=== PATIENT | female | born 1945 | race Caucasian/White ===

== ENCOUNTER → 2016-08-02 | Outpatient (CLI) | payer MEDICARE, OTHER ==
--- NOTE | 2016-08-03 08:17 | USB ---
Reason for exam: clinical finding. History: Patient is postmenopausal and is nulliparous. Benign left mammotome panel of the left breast, December 14, 2004. Took estrogen beginning at age 30. Indicated problem(s): palpable abnormality in the right breast. Physical Findings: Nurse Summary: Right breast 10 o'clock 2 x 3 palpable, skin around darkened area (nurse cw). US Breast RT Right breast ultrasound includes all four quadrants, the retroareolar region and axilla. Finding demonstrates area of edematous tissue at 9 o'clock, red raised area, has mass affect at one level. These results were verbally communicated with the patient and result sheet given to the patient on 08/02/16. ASSESSMENT: Probably benign, BI-RAD 3 RECOMMENDATION: Ultrasound of the right breast in 3 months.
== END | disposition home or self-care (01) ==
LOC: RADUSWWP 13:54
PROVIDERS: ATTEND Family Medicine
DX: N63 Unspecified lump in breast (principal); R92.8 Other abnormal and inconclusive findings on diagnostic imaging of breast

== ENCOUNTER → 2016-11-03 | Outpatient (CLI) | payer MEDICARE, OTHER ==
--- NOTE | 2016-11-07 07:25 | USB ---
Reason for exam: clinical finding. History: Patient is postmenopausal and is nulliparous. Benign left mammotome panel of the left breast, December 14, 2004. Took estrogen beginning at age 30. Indicated problem(s): palpable abnormality in the right breast. Physical Findings: Nurse Summary: 1cm palpable lump in the right breast (nurse [place]). US Breast RT Right breast ultrasound includes all four quadrants, the retroareolar region and axilla. Finding demonstrates a 1.7 x 2.2 x 1.0cm hypoechoic, vascular lesion at 9 o'clock. Not enlarging, continue follow up in 3 months. These results were verbally communicated with the patient and result sheet given to the patient on 11/03/16. ASSESSMENT: Probably benign, BI-RAD 3 RECOMMENDATION: Ultrasound of the right breast in 3 months.
== END | disposition home or self-care (01) ==
LOC: RADUSWWP 14:04
PROVIDERS: ATTEND Family Medicine
DX: N63 Unspecified lump in breast (principal)

== ENCOUNTER → 2017-03-07 | Day surgery (SDC) | payer MEDICARE, OTHER ==
--- NOTE | 2017-03-07 14:56 | USB ---
EXAMINATION TYPE: US biopsy breast VAD RT, MG diagnostic mammo RT wo CAD DATE OF EXAM: 03/07/2017 CLINICAL HISTORY: R92.8 Abn mammo. Abnormal ultrasound. History of trauma injury to right breast. TECHNIQUE: Ultrasound guided core biopsy of right breast with core biopsy and follow-up two-view mammogram. COMPARISON: Right breast ultrasound February 14, 2017 and older studies. FINDINGS: The procedure of ultrasound guided core biopsy was explained to the patient. Benefits, alternatives, and risks were discussed. An informed consent was then obtained. The patient was placed in supine positioning for imaging and for the procedure. Preprocedure imaging redemonstrates heterogeneous lobulated hypoechoic area or lesion at 9:00 position zone a right breast ending 2 dermal surface. The overlying skin was prepped and draped in usual sterile fashion. Lidocaine was used as anesthetic into the skin. Lidocaine with epinephrine is used as anesthetic into the deeper tissue of the right breast. Under ultrasound guidance, a 12-gauge vacuum assisted biopsy gun device was used to obtain 2 core samples. Following this, a biopsy clip was left in lesion. The patient tolerated the procedure well without any immediate complication. The patient was kept in the radiology department for short stay after the procedure and then discharged home in stable condition. Postprocedure mammogram shows successful deployment of clip corresponding to mammogram abnormality. Persistent lesion is not evident or as well seen on traditional diagnostic digital two-view mammogram. IMPRESSION: Successful, uncomplicated ultrasound guided core biopsy of area of concern in the right breast, full pathology results to follow. Low to intermediate index of suspicion noted at time of procedure. There was firmness or hardness in lesion and cores show dark material favoring an atypical hematoma (on US) given patient's history of recent trauma. Pathology Results: Benign BREAST, RIGHT, CORE BIOPSY: FAT NECROSIS WITH FIBROSIS, CHRONIC INFLAMMATION, AND FOREIGN BODY REACTION TO NON-REFRACTILE MATERIAL. NEGATIVE FOR MALIGNANCY Recommendation Follow up mammogram and ultrasound of the right breast in 6 months. LILY
[2017-03-07 23:29] VITALS: BP 100/64; PULSE 59; RESP 16; TEMP 96.9; BMI 35.6
== END ==
LOC: RADUSWWP 13:27
PROVIDERS: ATTEND Surgery
DX: N64.1 Fat necrosis of breast (principal); N60.31 Fibrosclerosis of right breast; Z87.828 Personal history of other (healed) physical injury and trauma
CPT/HCPCS: 88305; 77065; 19083; A4648; J2001

== ENCOUNTER 2017-07-12 13:30 | Observation (INO) | payer MEDICARE, OTHER ==
--- NOTE | 2017-07-12 15:39 | ED ---
General Adult HPI - General Chief complaint: Syncope Stated complaint: Syncope Time Seen by Provider: 07/12/17 15:19 Source: patient, family, RN notes reviewed Mode of arrival: wheelchair Limitations: no limitations - History of Present Illness Initial comments: 71-year-old female presenting for evaluation of multiple falls and syncope. Patient has remote history of CVA. She states that over the past 3 days she has had 1 syncopal episode and has had 2 near syncopal episodes. She states she feels lightheaded prior to these episodes. No chest pain or dyspnea. No fever or chills. He does admit that she has not been eating as much lately. Denies any nausea or vomiting. Denies diarrhea. Denies fever or chills. Denies cough or fever. No palpitations. - Related Data Home Medications Medication Instructions Recorded Confirmed ALPRAZolam [Xanax] 0.5 mg PO TID PRN 11/25/13 07/12/17 ARIPiprazole [Abilify] 2 mg PO WE 11/25/13 07/12/17 Amitriptyline HCl [Elavil] 25 mg PO HS 11/25/13 07/12/17 Philipp Cit/Mag/D3/Zn/Farm Truck Driver/J Luis/Bor 1 tab PO DAILY 11/25/13 07/12/17 [Citracal-Vit D + Magnesium Tab] Clopidogrel [Plavix] 75 mg PO DAILY 11/25/13 07/12/17 Latanoprost Ophth [Xalatan 0.005%] 1 drops BOTH EYES HS 11/25/13 07/12/17 Levothyroxine Sodium [Synthroid] 50 mcg PO DAILY 11/25/13 07/12/17 Multivitamin/Iron/Folic Acid 1 tab PO DAILY 11/25/13 07/12/17 [Centrum Complete Multivit Tab] Timolol 0.5% Ophth Soln [Timoptic 1 drop BOTH EYES BID 11/25/13 07/12/17 0.5% Ophth Soln] Citalopram Hydrobromide [CeleXA] 40 mg PO DAILY 08/24/15 07/12/17 Aspirin 162 mg PO BID 07/12/17 07/12/17 Fluticasone Propionate [Flovent 2 puff INHALATION RT-DAILY 07/12/17 07/12/17 Hfa 110mcg] Lisinopril [Prinivil] 5 mg PO DAILY 07/12/17 07/12/17 Ubidecarenone [Co Q-10] 100 mg PO DAILY 07/12/17 07/12/17 Previous Rx's Medication Instructions Recorded Atorvastatin [Lipitor] 40 mg PO DAILY #30 tab 10/06/14 Allergies Allergy/AdvReac Type Severity Reaction Status Date / Time No Known Allergies Allergy Verified 07/12/17 16:01 Review of Systems ROS Statement: Those systems with pertinent positive or pertinent negative responses have been documented in the HPI. ROS Other: All systems not noted in ROS Statement are negative. Past Medical History Past Medical History: CVA/TIA, Hyperlipidemia, Rheumatoid Arthritis (RA), Thyroid Disorder Additional Past Medical History / Comment(s): depression, glaucoma, bronchitis, CVA 1997 and TIA 2011 History of Any Multi-Drug Resistant Organisms: None Reported Past Surgical History: Orthopedic Surgery Additional Past Surgical History / Comment(s): cyst removed left ovary, detached retina repair, artery in groin 99% blocked "cleaned out", sinus surgery 2001, bilat hip replacement 2005 and 2013, cataract surgery sarina., hx of sciatic nerve block Past Anesthesia/Blood Transfusion Reactions: No Reported Reaction Past Psychological History: Anxiety, Depression Smoking Status: Former smoker Past Alcohol Use History: Occasional Past Drug Use History: None Reported - Past Family History Brother(s) Family Medical History: Cancer Additional Family Medical History / Comment(s): pancreatic Sister(s) Family Medical History: Cancer, Myocardial Infarction ([place]) Additional Family Medical History / Comment(s): skin cancer and cervical cancer Father Family Medical History: Coronary Artery Disease (CAD) General Exam Limitations: no limitations General appearance: alert, in no apparent distress Head exam: Present: atraumatic, normocephalic Eye exam: Present: normal appearance, PERRL ENT exam: Present: mucous membranes dry Neck exam: Present: normal inspection. Absent: tenderness, meningismus Respiratory exam: Present: normal lung sounds bilaterally. Absent: respiratory distress, wheezes Cardiovascular Exam: Present: regular rate, normal rhythm GI/Abdominal exam: Present: soft. Absent: distended, tenderness, guarding Extremities exam: Present: normal inspection, normal capillary refill. Absent: pedal edema Neurological exam: Present: alert, oriented X3, CN II-XII intact. Absent: motor sensory deficit Psychiatric exam: Present: normal affect, normal mood Skin exam: Present: warm, dry, intact. Absent: cyanosis, diaphoretic Course Vital Signs 07/12/17 07/12/17 07/12/17 13:45 16:29 17:23 Temperature 98.0 F Pulse Rate 57 L 53 L Pulse Rate [ 61 Sitting Electronic Science Teacher] Pulse Rate [ 84 Standing Electronic Science Teacher ] Pulse Rate [ 60 Supine Electronic Science Teacher] Respiratory 20 18 Rate Blood Pressure 131/63 118/71 Blood Pressure 134/66 [Right Arm Sitting] Blood Pressure 111/62 [Right Arm Standing] Blood Pressure 135/53 [Right Arm Supine] O2 Sat by Pulse 100 98 Oximetry EKG Findings - EKG Comments: EKG Findings:: EKG, sinus bradycardia, rate of 55, HI interval 172, QRS duration 106, QTC 403, no ST segment elevation or depression Medical Decision Making - Medical Decision Making 71-year-old female presenting with syncope and light headedness. Patient did have head trauma, CT is obtained there is no acute intracranial hemorrhage, there is old subcortical infarct which is consistent with patient's history of CVA. Laboratory studies reveal normal white blood cell count, hemoglobin 13.2, electrolytes are normal troponin negative. EKG shows no arrhythmia or ischemia. Urinalysis negative Patient will be placed in observation, she will be maintained on telemetry, cardiology will be consulted. - Lab Data Result diagrams: 07/12/17 15:48 07/12/17 15:48 Lab Results 07/12/17 07/12/17 07/12/17 Range/Units 15:48 15:48 15:48 WBC 7.3 (3.8-10.6) k/uL RBC 4.42 (3.80-5.40) m/uL Hgb 13.2 (11.4-16.0) gm/dL Hct 39.3 (34.0-46.0) % MCV 88.7 (80.0-100.0) fL MCH 29.9 (25.0-35.0) pg MCHC 33.7 (31.0-37.0) g/dL RDW 13.3 (11.5-15.5) % Plt Count 237 (150-450) k/uL Neutrophils % 54 % Lymphocytes % 25 % Monocytes % 7 % Eosinophils % 9 % Basophils % 1 % Neutrophils # 3.9 (1.3-7.7) k/uL Lymphocytes # 1.8 (1.0-4.8) k/uL Monocytes # 0.5 (0-1.0) k/uL Eosinophils # 0.6 (0-0.7) k/uL Basophils # 0.1 (0-0.2) k/uL PT (9.0-12.0) sec INR (<1.2) APTT (22.0-30.0) sec Sodium 140 (137-145) mmol/L Potassium 4.8 (3.5-5.1) mmol/L Chloride 102 (98-107) mmol/L Carbon Dioxide 28 (22-30) mmol/L Anion Gap 10 mmol/L BUN 22 H (7-17) mg/dL Creatinine 0.94 (0.52-1.04) mg/dL Est GFR (CKD-EPI)AfAm 72 (>60 ml/min/1.73 sqM) Est GFR (CKD-EPI)NonAf 62 (>60 ml/min/1.73 sqM) Glucose 89 (74-99) mg/dL Calcium 9.9 (8.4-10.2) mg/dL Magnesium 2.2 (1.6-2.3) mg/dL Total Bilirubin 1.2 (0.2-1.3) mg/dL AST 27 (14-36) U/L ALT 20 (9-52) U/L Alkaline Phosphatase 125 (38-126) U/L Total Creatine Kinase 35 (30-135) U/L CK-MB (CK-2) 0.3 (0.0-2.4) ng/mL CK-MB (CK-2) Rel Index 0.9 Troponin I <0.012 (0.000-0.034) ng/mL Total Protein 7.1 (6.3-8.2) g/dL Albumin 4.1 (3.5-5.0) g/dL Urine Color Urine Appearance (Clear) Urine pH (5.0-8.0) Ur Specific [place] (1.001-1.035) Urine Protein (Negative) Urine Glucose (UA) (Negative) Urine Ketones (Negative) Urine Blood (Negative) Urine Nitrite (Negative) Urine Bilirubin (Negative) Urine Urobilinogen (<2.0) mg/dL Ur Leukocyte Esterase (Negative) 05/10/18 05/10/18 Range/Units 15:48 17:03 WBC (3.8-10.6) k/uL RBC (3.80-5.40) m/uL Hgb (11.4-16.0) gm/dL Hct (34.0-46.0) % MCV (80.0-100.0) fL MCH (25.0-35.0) pg MCHC (31.0-37.0) g/dL RDW (11.5-15.5) % Plt Count (150-450) k/uL Neutrophils % % Lymphocytes % % Monocytes % % Eosinophils % % Basophils % % Neutrophils # (1.3-7.7) k/uL Lymphocytes # (1.0-4.8) k/uL Monocytes # (0-1.0) k/uL Eosinophils # (0-0.7) k/uL Basophils # (0-0.2) k/uL PT 9.8 (9.0-12.0) sec INR 1.0 (<1.2) APTT 20.7 L (22.0-30.0) sec Sodium (137-145) mmol/L Potassium (3.5-5.1) mmol/L Chloride (98-107) mmol/L Carbon Dioxide (22-30) mmol/L Anion Gap mmol/L BUN (7-17) mg/dL Creatinine (0.52-1.04) mg/dL Est GFR (CKD-EPI)AfAm (>60 ml/min/1.73 sqM) Est GFR (CKD-EPI)NonAf (>60 ml/min/1.73 sqM) Glucose (74-99) mg/dL Calcium (8.4-10.2) mg/dL Magnesium (1.6-2.3) mg/dL Total Bilirubin (0.2-1.3) mg/dL AST (14-36) U/L ALT (9-52) U/L Alkaline Phosphatase (38-126) U/L Total Creatine Kinase (30-135) U/L CK-MB (CK-2) (0.0-2.4) ng/mL CK-MB (CK-2) Rel Index Troponin I (0.000-0.034) ng/mL Total Protein (6.3-8.2) g/dL Albumin (3.5-5.0) g/dL Urine Color Light Yellow Urine Appearance Clear (Clear) Urine pH 6.5 (5.0-8.0) Ur Specific [place] 1.007 (1.001-1.035) Urine Protein Negative (Negative) Urine Glucose (UA) Negative (Negative) Urine Ketones Negative (Negative) Urine Blood Negative (Negative) Urine Nitrite Negative (Negative) Urine Bilirubin Negative (Negative) Urine Urobilinogen <2.0 (<2.0) mg/dL Ur Leukocyte Esterase Negative (Negative) Disposition Clinical Impression: Syncope Disposition: ADMITTED IP TO THIS [facility] Condition: Serious Is patient prescribed a controlled substance at d/c from ED?: No Referrals: Rusty Dempsey DO [Primary Care Provider] - 1-2 days Decision to Admit Reason: Admit from EC Decision Date: 07/12/17 Decision Time: 17:19
[2017-07-12] MEDS ORDERED: SODIUM CHLORIDE 0.9% 500 ML IV ONE (15:50)
[2017-07-12 16:11] LABS: Basophils # (A) 0.1 k/uL (0-0.2); Basophils % (A) 1 %; Eosinophils # (A) 0.6 k/uL (0-0.7); Eosinophils % (A) 9 %; HCT 39.3 % (34.0-46.0); HGB 13.2 gm/dL (11.4-16.0); Lymphocytes # (A) 1.8 k/uL (1.0-4.8); Lymphocytes % (A) 25 %; MCH 29.9 pg (25.0-35.0); MCHC 33.7 g/dL (31.0-37.0); MCV 88.7 fL (80.0-100.0); Monocytes # (A) 0.5 k/uL (0-1.0); Monocytes % (A) 7 %; Neutrophils # (A) 3.9 k/uL (1.3-7.7); Neutrophils % (A) 54 %; Platelet Count 237 k/uL (150-450); RBC 4.42 m/uL (3.80-5.40); RDW 13.3 % (11.5-15.5); WBC 7.3 k/uL (3.8-10.6)
[2017-07-12 16:16] LABS: Albumin 4.1 g/dL (3.5-5.0); Calcium 9.9 mg/dL (8.4-10.2); Magnesium 2.2 mg/dL (1.6-2.3); Potassium 4.8 mmol/L (3.5-5.1); Total Bilirubin 1.2 mg/dL (0.2-1.3); Total Protein 7.1 g/dL (6.3-8.2)
[2017-07-12 16:22] LABS: Creatine Kinase 35 U/L (30-135)
[2017-07-12 16:25] LABS: Prothrombin Time 9.8 sec (9.0-12.0)
[2017-07-12 16:27] LABS: Partial Thromboplastin Time 20.7 sec (22.0-30.0)
[2017-07-12 16:35] LABS: Creatine Kinase MB 0.3 ng/mL (0.0-2.4); Troponin I <0.012 ng/mL (0.000-0.034)
--- NOTE | 2017-07-12 17:09 | CT ---
EXAMINATION TYPE: CT brain cspine wo con DATE OF EXAM: 07/12/2017 COMPARISON: 10/06/2014 HISTORY: Syncope. CT DLP: 1741 mGycm, Automated exposure control for dose reduction was used. CONTRAST: Patient injected with 0 mL of Isovue 300. CT of the brain is performed utilizing 3 mm thick sections through the posterior fossa and 3 mm thick sections through the remaining calvarium. Study is performed within 24 hours of arrival to the hospital. No abnormal hyperdensity is present to suggest an acute intracranial hemorrhage. No mass lesion is evident. No acute infarcts are evident. There is hypodensity extending through the left frontal parietal uzma on from the sylvian fissure into the subcortical white matter compatible with chronic appearing white matter ischemic changes. No expansion or mass effect is evident. This was present in 2014 Ventricles and sulci are mildly prominent for the patient age. Level within the left maxillary sinus. Correlate for left maxillary sinusitis. Prior surgery is evide nt uncinectomies and ethmoidectomies. Mastoid air cells are clear. IMPRESSIONS: 1. Old subcortical infarct right frontal parietal region CT cervical spine. COMPARISON: None CT of the cervical spine is performed in the axial plane at 2 mm thick sections. Reconstructed image s in the coronal, and sagittal plane are reviewed on the computer. No acute fractures are evident. Vertebral body alignment is straightened There is loss of disc height throughout the cervical spine. Vertebral body heights are preserved. No spinal canal stenosis is evident. Uncovertebral joint hypertrophy is present C3-4 with moderate left and mild right foraminal narrowing . Moderate bilateral foraminal narrowing from uncovertebral joint hypertrophy is present C4-5 C5-6. M ild bilateral foraminal narrowing is present C6-7. IMPRESSIONS: 1. No acute fractures. 2. Degenerative disc changes and uncovertebral joint hypertrophy with bilateral foraminal narrowing
[2017-07-12 17:25] LABS: Appearance,Urine Clear (Clear); Bilirubin,Urine Negative (Negative); Blood,Urine Negative (Negative); Color,Urine Light Yellow; Glucose,Urine (UA) Negative (Negative); Ketones,Urine Negative (Negative); Leukocyte Esterase,Urine Negative (Negative); Nitrite,Urine Negative (Negative); PH, Urine 6.5 (5.0-8.0); Protein,Urine Negative (Negative); Specific Gravity,Urine 1.007 (1.001-1.035); Urobilinogen,Urine <2.0 mg/dL (<2.0)
[2017-07-12] MEDS ORDERED: NALOXONE 0.4 MG/ML 1 ML VIAL IV PRN (17:27)
[2017-07-12] MEDS ORDERED: ACETAMINOPHEN TAB 325 MG TAB PO PRN (17:27)
--- NOTE | 2017-07-12 17:44 | XR ---
EXAMINATION TYPE: XR chest 2V DATE OF EXAM: 07/12/2017 COMPARISON: NONE HISTORY: Syncope and weakness. TECHNIQUE: Frontal and lateral views of the chest are obtained. FINDINGS: There is right suprahilar horizontal opacity. Left lung is clear. No pleural effusion or p neumothorax is seen bilaterally. The cardiac silhouette size is upper limits of normal. The osseous structures are intact. IMPRESSION: Right suprahilar opacity could reflect infiltrate and/or atelectasis or possible scarrin g. Difficult to assess without prior comparison. Correlate clinically.
[2017-07-12] MEDS: SODIUM CHLORIDE 0.9% 1,000 ML IV SCH (18:56)
[2017-07-12] MEDS: AMITRIPTYLINE HCL 25 MG TAB PO SCH (20:13)
[2017-07-12] MEDS: TIMOLOL 0.5% OPHTH DROPS 5 ML BTL BOTH EYES SCH (20:14)
[2017-07-12] MEDS: ASPIRIN 81 MG PO SCH (20:14)
[2017-07-12] MEDS: ALPRAZolam 0.5 MG TAB PO PRN (20:16)
[2017-07-12] MEDS ORDERED: MAGNESIUM HYDROXIDE 2,400 MG/10 ML CUP PO PRN (21:27)
[2017-07-12] MEDS ORDERED: CALCIUM CARBONATE 500 MG CHEWABLE PO PRN (21:27)
[2017-07-12] MEDS ORDERED: ONDANSETRON 4 MG/2 ML VIAL IVP PRN (21:27)
[2017-07-12] MEDS ORDERED: MELATONIN 3 MG TABLET PO PRN (21:27)
[2017-07-12] MEDS: LATANOPROST 0.005% OPHTH DROPS 2.5 ML BTL BOTH EYES SCH (22:47)
--- NOTE | 2017-07-12 22:50 | HP ---
HISTORY AND PHYSICAL DATE OF SERVICE: July 12, 2017. PRESENT COMPLAINT: Fall. HISTORY OF PRESENTING COMPLAINT: This is a very pleasant 71-year-old patient of Dr. Dempsey. Chronic stable medical conditions include hyperlipidemia, hypothyroid, depression, anxiety. The patient had a stroke 20 years ago and since then has had 2 TIAs. The patient, about a week ago, was in the bathroom, knocked on the door asking if she was okay, did she fall down. She did not know but then she discovered she actually had a black eye and apparently patient had taken a fall without realizing. About 3 days ago the patient was pulling out some lingerie from the bedside drawer, was standing up, suddenly felt something coming on. She fell backwards on the bed, briefly passing out. There was no seizure activity, tongue biting, or any post episode confusion. Yesterday again the patient had an episode when she was standing, she felt something coming on and then she passed out. Denies any chest pain or palpitations. No swelling of the legs. No chest pain. REVIEW OF SYSTEMS: CONSTITUTIONAL: None. HEENT: None. RESPIRATORY: None. CARDIOVASCULAR: No chest pain or palpitations. GASTROINTESTINAL: Denied. MUSCULOSKELETAL: None. DERMATOLOGIC: None. HEMATOLOGIC: None. LYMPHATIC: None. PSYCHIATRY: None. NEUROLOGIC: None. PAST MEDICAL HISTORY: Hyperlipidemia, hypothyroid, depression, anxiety, stroke, TIA. PAST SURGICAL HISTORY: Orthopedic surgery, cyst removed from left ovary, detached retina repair, angioplasty of groin artery, bilateral hip replacement, bilateral cataract surgery, sciatic nerve block. PAST PSYCHIATRIC HISTORY: Anxiety and depression. SOCIAL HISTORY: Smoked a pack a day for 28 years, stopped in 1993. . Retired. FAMILY HISTORY: Skin cancer, cervical cancer, myocardial infarction. HOME MEDICATIONS: 1. CO Q 10, 100 mg p.o. daily. 2. Prinivil 5 mg p.o. daily. 3. Flovent HFA 110 mcg 2 puffs daily. 4. Timoptic 0.5% 1 drop to both eyes b.i.d. 5. Centrum Complete 1 tablet p.o. daily. 6. Synthroid 50 mcg p.o. daily. 7. Xalatan 0.005% 1 drop to both eyes at bedtime. 8. Plavix 75 mg p.o. daily. 9. Celexa 40 mg p.o. daily. 10.Citracal with vitamin D. 11.Magnesium 1 tab p.o. daily. 12.Lipitor 40 mg p.o. daily. 13.Aspirin 162 mg p.o. b.i.d. 14.Elavil 25 mg at bedtime. 15.Abilify 2 mg on Sunday. 16.Xanax 0.5 p.o. t.i.d. p.r.n. ALLERGIES: None. PHYSICAL EXAMINATION: Temperature 97.8, pulse 55, respirations 16, blood pressure 120/59, pulse ox 97% on room air. GENERAL APPEARANCE: Well built, BMI 34.8. Lying in bed comfortable. EYES: Pupil equal. Conjunctivae normal. HEENT: External appearance of oral cavity normal. NECK: JVD not raised. Mass not palpable. Respiratory effort normal. LUNGS: Clear. CARDIOVASCULAR: 1st and 2nd sounds normal. No edema. ABDOMEN: Soft, nontender. Liver and spleen not palpable. LYMPHATIC: No lymph node palpable in the neck or axillae. PSYCHIATRY: Alert, oriented x3. Mood and affect normal. NEUROLOGICAL: Pupils equal. Cranial nerves grossly intact. Power and sensation grossly intact. INVESTIGATIONS: White count 7.3, hemoglobin 13.2, potassium 4.8, BUN 22, creatinine 0.94. UA negative. EKG shows sinus bradycardia, rate of 55. CT scan of the head and cervical spine shows old subcortical infarct in the right frontal parietal area. ASSESSMENT: 1. This is a patient who in the last 1 week has had 3 episodes of passing out. Has felt briefly something coming on and then patient passes out. There was no tongue biting or incontinence or abnormal movement disorder. There has been no chest pain or palpitations. This is very highly likely from arrhythmias, though seizure activity also needs to be ruled out. 2. Hyperlipidemia. 3. Hypothyroid. 4. Depression and anxiety, not otherwise specified. PLAN: Patient is put on telemetry. We will order an EEG. There are no focal symptoms. Care was discussed with the patient. MMODL / SHAYYN: [id number] /
[2017-07-13 04:02] LABS: Creatine Kinase 29 U/L (30-135)
[2017-07-13 04:15] LABS: Creatine Kinase MB 0.3 ng/mL (0.0-2.4); Troponin I <0.012 ng/mL (0.000-0.034)
[2017-07-13] MEDS: LEVOTHYROXINE 50 MCG TAB PO SCH (04:21)
[2017-07-13] MEDS: BUDESONIDE 0.5 MG/2 ML NEBU INHALATION SCH ×2 (08:37→21:30)
[2017-07-13] MEDS ORDERED: AMINOPHYLLINE 500 MG/20 ML VIAL IV PRN (09:37)
[2017-07-13] MEDS ORDERED: REGADENOSON 0.4 MG/5 ML SYRINGE IV ONE (09:37)
[2017-07-13] MEDS: CITALOPRAM HYDROBROMIDE 20 MG TAB PO SCH (11:51)
[2017-07-13] MEDS: ASPIRIN 81 MG PO SCH ×2 (11:51→20:46)
--- NOTE | 2017-07-13 12:27 | P.CRDCN ---
History of Present Illness Consult date: 07/13/17 History of present illness: Mrs. Barnett is a pleasant 71-year-old female past medical history significant for TIA, dyslipidemia and peripheral vascular disease with history of iliac disease. She follows with Dr. Jay in the office. We have been asked to see her in consultation for syncope. She states last Sunday she got up to go to the bathroom and she had a syncopal episode. She doesn't recall any symptoms surrounding the incident. She did hit her face on the right side and has a black eye. Since that time she has had 2 more episodes of syncope. Both occurred after she stood up from bed. The second 2 episodes she recalls feeling very dizzy and light headed and felt as if her whole body went numb. She then feel to the floor and blacked out. She denies LOC. She denies symptoms of chest pain, shortness of breath, palpitations, nausea or vomiting prior to or after the incident. EKG reveals sinus bradycardia with no evidence of arrhythmia. Heart rate 55. Repeat EKG this morning again shows sinus bradycardia with no evidence of 1st, 2nd or 3rd degree heart block. Telemetry tracings have been unremarkable. Chest xray reveals right suprahilar opacity that could reflect infiltrate and/ or atelectasis or possible scarring. CT brain negative for an acute process. Laboratory data reviewed, hemoglobin 13.2, platelets 237, sodium 140, potassium 4.8, magnesium 2.2, cardiac enzymes negative 3. Orthostatic vital signs the emergency department were negative for partial changes. Most recent echocardiogram performed in the office October 2016 revealed preserved left ventricular systolic function with ejection fraction 50%. Most recent stress test performed in the office October 2016 is negative for reversible cardiac ischemia. Most recent carotid duplex performed in the office October 2016 revealed less than 50% bilateral stenosis. Current cardiac medications include Plavix 75 mg daily which she takes secondary to TIA, lisinopril 5 mg daily, aspirin 162 mg twice a day and atorvastatin 40 mg daily. She also takes Xanax, Celexa, Synthroid, Flovent and CoQ10. Review of Systems At the time of my exam: CONSTITUTIONAL: Denies fever. Denies chills. EYES: Denies blurred vision. Denies vision changes. Denies eye pain. EARS, NOSE, MOUTH & THROAT: Denies headache. Denies sore throat. Denies ear pain. CARDIOVASCULAR: Denies chest pain. Denies shortness of breath. Denies orthopnea. Denies PND. Denies palpitations. RESPIRATORY: Denies cough. GASTROINTESTINAL: Denies abdominal pain. Denies diarrhea. Denies constipation. Denies nausea. Denies vomiting. MUSCULOSKELETAL: Denies myalgias. INTEGUMENTARY: Denies pruitis. Denies rash. NEUROLOGIC: Denies numbness. Denies tingling. Denies weakness. PSYCHIATRIC: Denies anxiety. Denies depression. ENDOCRINE: Denies fatigue. Denies weight change. Denies polydipsia. Denies polyurina. GENITOURINARY: Denies burning, hematuria or urgency with micturation. HEMATOLOGIC: Denies history of anemia. Denies bleeding. Past Medical History Past Medical History: CVA/TIA, Hyperlipidemia, Osteoarthritis (OA), Thyroid Disorder Additional Past Medical History / Comment(s): depression, glaucoma, bronchitis, CVA 1997 and TIA 2011 History of Any Multi-Drug Resistant Organisms: None Reported Past Surgical History: Orthopedic Surgery Additional Past Surgical History / Comment(s): cyst removed left ovary, detached retina repair, artery in groin 99% blocked "cleaned out", sinus surgery 2001, bilat hip replacement 2005 and 2013, cataract surgery sarina., hx of sciatic nerve block Past Anesthesia/Blood Transfusion Reactions: No Reported Reaction Smoking Status: Former smoker - Past Family History Brother(s) Family Medical History: Cancer Additional Family Medical History / Comment(s): pancreatic Sister(s) Family Medical History: Cancer, Myocardial Infarction (SC) Additional Family Medical History / Comment(s): skin cancer and cervical cancer Father Family Medical History: Coronary Artery Disease (CAD) Medications and Allergies Home Medications Medication Instructions Recorded Confirmed Type ALPRAZolam [Xanax] 0.5 mg PO TID PRN 11/25/13 07/12/17 History ARIPiprazole [Abilify] 2 mg PO WE 11/25/13 07/12/17 History Amitriptyline HCl [Elavil] 25 mg PO HS 11/25/13 07/12/17 History Philipp Cit/Mag/D3/Zn/Meat Grader/J Luis/Bor 1 tab PO DAILY 11/25/13 07/12/17 History [Citracal-Vit D + Magnesium Tab] Clopidogrel [Plavix] 75 mg PO DAILY 11/25/13 07/12/17 History Latanoprost Ophth [Xalatan 0.005%] 1 drops BOTH EYES HS 11/25/13 07/12/17 History Levothyroxine Sodium [Synthroid] 50 mcg PO DAILY 11/25/13 07/12/17 History Multivitamin/Iron/Folic Acid 1 tab PO DAILY 11/25/13 07/12/17 History [Centrum Complete Multivit Tab] Timolol 0.5% Ophth Soln [Timoptic 1 drop BOTH EYES BID 11/25/13 07/12/17 History 0.5% Ophth Soln] Atorvastatin [Lipitor] 40 mg PO DAILY #30 tab 10/06/14 07/12/17 Rx Citalopram Hydrobromide [CeleXA] 40 mg PO DAILY 08/24/15 07/12/17 History Aspirin 162 mg PO BID 07/12/17 07/12/17 History Fluticasone Propionate [Flovent 2 puff INHALATION RT-DAILY 07/12/17 07/12/17 History Hfa 110mcg] Lisinopril [Prinivil] 5 mg PO DAILY 07/12/17 07/12/17 History Ubidecarenone [Co Q-10] 100 mg PO DAILY 07/12/17 07/12/17 History Allergies Allergy/AdvReac Type Severity Reaction Status Date / Time No Known Allergies Allergy Verified 07/12/17 16:01 Physical Exam Vitals: Vital Signs Temp Pulse Pulse Pulse Pulse Pulse Pulse 07/13/17 09:03 64 84 07/13/17 08:44 76 07/13/17 08:39 76 07/13/17 08:00 59 L 61 64 84 84 07/13/17 07:30 98.2 F 59 L 07/13/17 04:00 98 F 59 L 07/13/17 00:00 98.4 F 62 07/12/17 23:41 07/12/17 20:00 58 L 07/12/17 19:19 97.8 F 55 L 07/12/17 18:16 98.0 F 54 L 07/12/17 17:23 61 84 07/12/17 16:29 53 L 07/12/17 13:45 98.0 F 57 L Pulse Pulse Resp BP BP BP BP 07/13/17 09:03 59 L 115/56 114/56 108/53 07/13/17 08:44 07/13/17 08:39 07/13/17 08:00 56 L 59 L 18 07/13/17 07:30 18 07/13/17 04:00 56 L 17 114/56 07/13/17 00:00 17 97/49 07/12/17 23:41 80 16 07/12/17 20:00 16 07/12/17 19:19 16 124/59 07/12/17 18:16 19 119/55 07/12/17 17:23 60 134/66 111/62 135/53 07/12/17 16:29 18 118/71 07/12/17 13:45 20 131/63 BP Pulse Ox 07/13/17 09:03 07/13/17 08:44 07/13/17 08:39 07/13/17 08:00 07/13/17 07:30 118/55 96 07/13/17 04:00 95 07/13/17 00:00 98 07/12/17 23:41 07/12/17 20:00 07/12/17 19:19 97 07/12/17 18:16 99 07/12/17 17:23 07/12/17 16:29 98 07/12/17 13:45 100 Intake and Output 07/12/17 07/13/17 07/13/17 22:59 06:59 14:59 Other: Voiding Method Toilet Toilet Toilet Weight 100.698 kg 100.698 kg Blood pressure 108/53 heart rate 59 afebrile maintaining oxygen saturation on room air GENERAL: This is a 71-year-old female in no apparent distress at the time of my examination. HEENT: Head is atraumatic, normocephalic. Pupils are equal, round. Sclerae anicteric. Conjunctivae are clear. Mucous membranes of the mouth are moist. Neck is supple. There is no jugular venous distention. No carotid bruit is heard. LUNGS: Clear to auscultation no wheezes, rales or rhonchi. No chest wall tenderness is noted on palpation or with deep breathing. HEART: Regular rate and rhythm without murmurs, rubs or gallops. S1 and S2 heard. ABDOMEN: Soft, nontender. Bowel sounds are heard. No organomegaly noted. EXTREMITIES: No evidence of peripheral edema and no calf tenderness noted. VASCULAR: Radial and dorsalis pedis pulses palpated, no evidence of clubbing. NEUROLOGIC: Patient is awake, alert and oriented x3. Results 07/12/17 15:48 07/12/17 15:48 Cardiac Enzymes 07/12/17 07/12/17 07/12/17 Range/Units 15:48 15:48 22:16 AST 27 (14-36) U/L CK-MB (CK-2) 0.3 (0.0-2.4) ng/mL Troponin I <0.012 <0.012 (0.000-0.034) ng/mL 07/13/17 Range/Units 03:28 AST (14-36) U/L CK-MB (CK-2) 0.3 (0.0-2.4) ng/mL Troponin I <0.012 (0.000-0.034) ng/mL Coagulation 07/12/17 Range/Units 15:48 PT 9.8 (9.0-12.0) sec APTT 20.7 L (22.0-30.0) sec CBC 07/12/17 Range/Units 15:48 WBC 7.3 (3.8-10.6) k/uL RBC 4.42 (3.80-5.40) m/uL Hgb 13.2 (11.4-16.0) gm/dL Hct 39.3 (34.0-46.0) % Plt Count 237 (150-450) k/uL Comprehensive Metabolic Panel 07/12/17 Range/Units 15:48 Sodium 140 (137-145) mmol/L Potassium 4.8 (3.5-5.1) mmol/L Chloride 102 (98-107) mmol/L Carbon Dioxide 28 (22-30) mmol/L BUN 22 H (7-17) mg/dL Creatinine 0.94 (0.52-1.04) mg/dL Glucose 89 (74-99) mg/dL Calcium 9.9 (8.4-10.2) mg/dL AST 27 (14-36) U/L ALT 20 (9-52) U/L Alkaline Phosphatase 125 (38-126) U/L Total Protein 7.1 (6.3-8.2) g/dL Albumin 4.1 (3.5-5.0) g/dL Current Medications Generic Name Dose Route Start Last Admin Trade Name Freq PRN Reason Stop Dose Admin Acetaminophen 650 mg 07/12/17 17:27 Tylenol Tab PO Q6HR PRN Mild Pain or Fever > 100.5 Alprazolam 0.5 mg 07/12/17 17:28 07/12/17 20:16 Xanax PO 0.5 mg TID PRN Administration Anxiety Aminophylline 100 mg 07/13/17 09:37 Aminophylline IV 08/12/17 09:38 ONCE PRN Patient Response Amitriptyline HCl 25 mg 07/12/17 21:00 07/12/17 20:13 Elavil PO 25 mg HS MAYELA Administration Aripiprazole 2 mg 07/18/17 09:00 Abilify PO We@0900 MAYELA Aspirin 162 mg 07/12/17 21:00 07/12/17 20:14 Aspirin PO 162 mg BID MAYELA Administration Atorvastatin Calcium 40 mg 07/13/17 09:00 Lipitor PO DAILY [facility] Budesonide 0.5 mg 07/13/17 08:00 07/13/17 08:37 Pulmicort INHALATION 0.5 mg RT-BID MAYELA Administration Calcium Carbonate/Glycine 1,000 mg 07/12/17 21:27 Tums PO Q4HR PRN Dyspepsia Citalopram Hydrobromide 40 mg 07/13/17 09:00 Celexa PO DAILY [facility] Clopidogrel Bisulfate 75 mg 07/13/17 09:00 Plavix PO DAILY [facility] Enoxaparin Sodium 40 mg 07/13/17 09:00 Lovenox SQ DAILY [facility] Sodium Chloride 1,000 mls @ 75 mls/hr 07/12/17 17:30 07/12/17 18:56 Saline 0.9% IV 75 mls/hr .[id number] MAYELA Administration Latanoprost 1 drops 07/12/17 21:30 07/12/17 22:47 Xalatan 0.005% BOTH EYES 1 drops HS [facility] Administration Levothyroxine Sodium 50 mcg 07/13/17 06:30 07/13/17 04:21 Synthroid PO Not Given DAILY@0630 [facility] Lisinopril 5 mg 07/13/17 09:00 Zestril PO DAILY MAYELA Magnesium Hydroxide 2,400 mg 07/12/17 21:27 Milk Of Magnesia PO DAILY PRN Constipation Melatonin 3 mg 07/12/17 21:27 07/12/17 22:48 Melatonin PO 3 mg HS PRN Administration Insomnia Naloxone HCl 0.2 mg 07/12/17 17:27 Narcan IV Q2M PRN Opioid Reversal Ondansetron HCl 4 mg 07/12/17 21:27 Zofran IVP Q8HR PRN Nausea And Vomiting Timolol Maleate 1 drops 07/12/17 21:00 07/12/17 20:14 Timoptic BOTH EYES 1 drops BID MAYELA Administration Intake and Output 07/12/17 07/13/17 07/13/17 22:59 06:59 14:59 Other: Voiding Method Toilet Toilet Toilet Weight 100.698 kg 100.698 kg Patient Weight 07/14/17 06:59 Weight 100.698 kg 07/12/17 15:48 07/12/17 15:48 Assessment and Plan Assessment: ASSESSMENT 1. Syncope 2. History of hypertension 3. History of peripheral vascular disease 4. Dyslipidemia 5. History of anxiety and depression PLAN Repeat orthostatic vital signs. Check D-dimer. Obtain 2D echocardiogram and doppler study to assess cardiac structure and function. Perform Lexiscan stress test to assess for reversible cardiac ischemia. Continue to monitor on telemetry for an acute arrhythmia for another 24 hours. If no evidence of arrhythmia, she should have an event monitor placed. Plan has been discussed with the patient. Further recommendations to follow based on clinical course. Thank you kindly for this consultation. Nurse Practitioner note has been reviewed, I agree with a documented findings and plan of care. Patient was seen and examined.
--- NOTE | 2017-07-13 12:33 | EST ---
EXERCISE STRESS AGE: 71 SEX: F HT: 5'7" WT: 222 PROTOCOL: Lexiscan Cardiolite Stress Test HEART RATE REST: 68 BLOOD PRESSURE REST: 126/70 MAXIMUM HEART RATE ACHIEVED: 83 MAXIMUM BLOOD PRESSURE: 213/50 85% MPHR: 128 100% MPHR: 151 INDICATIONS: Syncope CLINICAL INFORMATION: STRESS DATA: Pretesting physical examination showed a heart rate of 68, pressure is 126/70 mmHg, baseline EKG showed sinus mechanism. 0.4 mg of Lexiscan was given to the patient over 15 seconds per protocol. Max heart rate was 83 beats per minute and maximum pressure was 213/50 mmHg. Clinically, the patient did not have any symptoms and the EKG did not show any significant ST or T-wave abnormalities concerning for ischemia. CONCLUSION: 1. Nondiagnostic electrocardiogram stress testing in response to Lexiscan. 2. Please follow up on the Cardiolite portion on separate report from Radiology Department. MMODL / IJN: [id number] /
--- NOTE | 2017-07-13 13:13 | NM ---
EXAMINATION TYPE: NM stress lexiscan cardiolite DATE OF EXAM: 07/13/2017 COMPARISON: NONE HISTORY: Syncope. History of diabetes, CVA, hyperlipidemia, prior catheterization, prior tobacco abus e TECHNIQUE: After the intravenous administration of 9.97 mCi Tc 99m Sestamibi - Cardiolite resting SP ECT images acquired 45 minutes post injection. The patient received 0.4mg Lexiscan, 26.1 mCi Tc 99m Sestamibi - Stress images obtained [address] injection FINDINGS: Review of stress and rest SPECT images demonstrates no reversible distinct perfusion abnormality. La rge fixed defect is seen of the inferior lateral wall likely in the distribution of the right coronar y. There is dyskinesis of the inferior lateral wall. Gated analysis shows normal wall motion within t he remainder of the ventral with an estimated left ventricular ejection fraction of 67 %. TID calcula kenya within normal limits at 1.04 IMPRESSION: 1. No scintigraphic evidence for reversible ischemia. 2. Large fixed defect involving the inferior lateral wall from prior infarct with associated dyskines is.
--- NOTE | 2017-07-13 13:15 | ECHOF ---
Referral Reason: MEASUREMENTS -------- HEIGHT: 170.2 cm WEIGHT: 100.7 kg BP: 115/56 IVSd: 1.3 cm (0.6 - 1.1) LVIDd: 4.2 cm (3.9 - 5.3) LVPWd: 1.3 cm (0.6 - 1.1) IVSs: 1.4 cm LVIDs: 3.1 cm LVPWs: 1.4 cm LAESV Index (A-L): 24.36 ml/m Ao Diam: 2.8 cm (2.0 - 3.7) AV Cusp: 1.9 cm (1.5 - 2.6) LA Diam: 3.0 cm (2.7 - 3.8) EPSS: 1.0 cm MV E Michael: 1.17 m/s MV DecT: 213 ms MV A Michael: 0.96 m/s MV E/A Ratio: 1.22 RAP: 5.00 mmHg RVSP: 37.10 mmHg MV EF SLOPE: 111.07 mm/s (70 - 150) MV EXCURSION: 1.84 cm (> 18.000) FINDINGS -------- Sinus rhythm. This was a technically adequate study. The left ventricular size is normal. There is mild concentric left ventricular hypertrophy. Overa ll left ventricular systolic function is normal with, an EF between 55 - 60 %. The right ventricle is normal in size and function. Normal LA size by volume 22+/-6 ml/m2. The right atrium is normal in size. Aortic valve is trileaflet and is mildly thickened. There is no evidence of aortic regurgitation. There is no evidence of aortic stenosis. The mitral valve leaflets are mildly thickened. Mild mitral regurgitation is present. Mild tricuspid regurgitation present. There is borderline pulmonary hypertension. The right ventr icular systolic pressure, as measured by Doppler, is 37.10mmHg. The pulmonic valve was not well visualized. The aortic root size is normal. Normal inferior vena cava with normal inspiratory collapse consistent with estimated right atrial pre ssure of 5 mmHg. There is no pericardial effusion. CONCLUSIONS -------- 1. Sinus rhythm. 2. This was a technically adequate study. 3. The left ventricular size is normal. 4. There is mild concentric left ventricular hypertrophy. 5. Overall left ventricular systolic function is normal with, an EF between 55 - 60 %. 6. Normal LA size by volume 22+/-6 ml/m2. 7. Aortic valve is trileaflet and is mildly thickened. 8. The mitral valve leaflets are mildly thickened. 9. Mild mitral regurgitation is present. 10. Mild tricuspid regurgitation present. 11. There is borderline pulmonary hypertension. 12. The right ventricular systolic pressure, as measured by Doppler, is 37.10mmHg. 13. The pulmonic valve was not well visualized. 14. The aortic root size is normal. 15. There is no pericardial effusion. CONVERTIBLE POWER SHOVEL OPERATOR: Sai Bains RDCS
[2017-07-13] MEDS: LISINOPRIL 5 MG TAB PO SCH (13:17)
[2017-07-13] MEDS: TIMOLOL 0.5% OPHTH DROPS 5 ML BTL BOTH EYES SCH ×2 (13:17→20:47)
[2017-07-13] MEDS: ATORVASTATIN 40 MG TAB PO SCH (13:17)
[2017-07-13] MEDS: CLOPIDOGREL 75 MG TAB PO SCH (13:17)
[2017-07-13] MEDS: ENOXAPARIN 40 MG/0.4 ML SYRINGE SQ SCH (13:18)
[2017-07-13] MEDS ORDERED: RX INFO: IV CONTRAST WAS GIVEN 1 EACH MISC MISCELLANE PRN (13:44)
--- NOTE | 2017-07-13 18:31 | CT ---
EXAMINATION TYPE: CT angio chest DATE OF EXAM: 07/13/2017 6:24 PM COMPARISON: NONE HISTORY: Elevated d-dimer. CT DLP: 371.8 mGycm Automated exposure control for dose reduction was used. CONTRAST: CTA scan of the thorax is performed with IV Contrast, patient injected with 100 mL of Isovue 370, pul monary embolism protocol. There are 3-D post processed images.. FINDINGS: There is coarse reticular infiltrate in both lungs are more on the right side. There is no pulmonary mass. There are numerous enlarged mediastinal and bronchial lymph nodes. These measure up to 2.5 cm. Thoracic aorta shows no evidence of aneurysm or dissection. I see no filling defects in the pulmonary arteries. There is spurring in the thoracic spine. IMPRESSION: NO EVIDENCE OF PULMONARY EMBOLISM. MEDIASTINAL AND BRONCHIAL ADENOPATHY WITH COARSE RETICULAR PULMONARY INFILTRATES. THIS COULD RELATE T O SARCOIDOSIS. CLINICAL CORRELATION IS NEEDED.
[2017-07-13] MEDS: SODIUM CHLORIDE 0.9% 1,000 ML IV SCH (20:41)
[2017-07-13] MEDS: ALPRAZolam 0.5 MG TAB PO PRN (20:46)
[2017-07-13] MEDS: AMITRIPTYLINE HCL 25 MG TAB PO SCH (20:46)
[2017-07-13] MEDS: LATANOPROST 0.005% OPHTH DROPS 2.5 ML BTL BOTH EYES SCH (20:46)
[2017-07-13 23:59] VITALS: RESP 16
[2017-07-14] MEDS: SODIUM CHLORIDE 0.9% 1,000 ML IV SCH (05:36)
[2017-07-14] MEDS: LEVOTHYROXINE 50 MCG TAB PO SCH (05:36)
[2017-07-14 06:59] LABS: Calcium 9.2 mg/dL (8.4-10.2); Potassium 4.4 mmol/L (3.5-5.1)
[2017-07-14] MEDS: BUDESONIDE 0.5 MG/2 ML NEBU INHALATION SCH (09:09)
[2017-07-14] MEDS: ASPIRIN 81 MG PO SCH (09:26)
[2017-07-14] MEDS: LISINOPRIL 5 MG TAB PO SCH (09:26)
[2017-07-14] MEDS: CITALOPRAM HYDROBROMIDE 20 MG TAB PO SCH (09:26)
[2017-07-14] MEDS: TIMOLOL 0.5% OPHTH DROPS 5 ML BTL BOTH EYES SCH (09:26)
[2017-07-14] MEDS: ATORVASTATIN 40 MG TAB PO SCH (09:26)
[2017-07-14] MEDS: CLOPIDOGREL 75 MG TAB PO SCH (09:26)
[2017-07-14] MEDS: ENOXAPARIN 40 MG/0.4 ML SYRINGE SQ SCH (09:26)
[2017-07-14 12:20] VITALS: BP 110/52; PULSE 62; TEMP 98.3
--- NOTE | 2017-07-15 12:31 | P.PN ---
Subjective Progress Note Date: 07/14/17 Principal diagnosis: Syncope This is 71-year-old female was admitted to the hospital with a fall and possible syncope. Patient had echocardiogram and stress test which are within normal limits. No arrhythmias are documented in the hospital. No evidence of postural hypotension. Patient is being discharged home. Patient will have event monitor as an outpatient . Follow-up in the office in one week Objective - Vital Signs Vital signs: Vital Signs Temp 98.3 F 07/14/17 12:00 Pulse 62 07/14/17 12:00 Resp 16 07/14/17 12:00 BP 110/52 07/14/17 12:00 Pulse Ox 95 07/14/17 12:00 Intake & Output 07/14/17 07/15/17 07/15/17 18:59 06:59 18:59 Other: Voiding Method Toilet - Exam GENERAL EXAM: Patient is alert and oriented and doesn't appear to be in any acute distress HEENT: Normocephalic. Normal reaction of pupils, equal size, normal range of extraocular motion. No erythema or exudates in the throat. NECK: No masses, no nuchal rigidity. CHEST: No chest wall deformity. LUNGS: Equal air entry with no crackles or wheeze. HEART: S1 and S2 normal with no audible mumurs or gallops. Regular rhythm, femorals equal on both sides.. ABDOMEN: No hepatosplenomegaly, normal bowel sounds, no guarding or rigidity. SKIN: No rashes CENTRAL NERVOUS SYSTEM: No focal deficits. EXTREMITIES: No cyanosis, clubbing or edema. - Labs CBC & Chem 7: 07/12/17 15:48 07/14/17 06:14 Assessment and Plan (1) COPD (chronic obstructive pulmonary disease) Status: Acute Code(s): J44.9 - CHRONIC OBSTRUCTIVE PULMONARY DISEASE, UNSPECIFIED SNOMED Code(s): 98054943 (2) Depression Status: Acute Code(s): F32.9 - MAJOR DEPRESSIVE DISORDER, SINGLE EPISODE, UNSPECIFIED SNOMED Code(s): 57588655 (3) Hyperlipidemia Status: Acute Code(s): E78.5 - HYPERLIPIDEMIA, UNSPECIFIED SNOMED Code(s): 20355410 (4) Syncope Status: Acute Code(s): R55 - SYNCOPE AND COLLAPSE SNOMED Code(s): 535487677 (5) Transient cerebral ischemia Status: Acute Code(s): G45.9 - TRANSIENT CEREBRAL ISCHEMIC ATTACK, UNSPECIFIED SNOMED Code(s): 852133106 Plan: Patient is clinically stable. Echo and stress test are normal. No arrhythmias are detected. Patient will have an outpatient event monitor
--- NOTE | 2017-07-16 18:00 | EEG ---
ELECTROENCEPHALOGRAM REPORT DATE OF SERVICE: 07/13/2017. REASON FOR TESTING: Syncope. DESCRIPTION OF THE PROCEDURE: This EEG was performed using a 21-channel digital electroencephalograph, following international 10-20 system. DESCRIPTION OF THE RECORDING: From the beginning of the tracing, and with the patient's eyes closed, the background rhythm was mostly consisting of 9 Hz alpha frequency in the posterior occipital leads. No obvious asymmetry is seen. Photic stimulation was performed with no driving response seen. No pathological waves were elicited. Rare movement artifacts are seen. Hyperventilation was not performed. The patient remains awake throughout the tracing. No epileptiform discharges were seen. Her EKG lead showed a regular rate and rhythm. INTERPRETATION: This awake EEG can be considered within normal limits. There was no asymmetry seen. No epileptiform discharges were noticed. The absence of epileptiform discharges does not rule out the diagnosis of epilepsy; therefore clinical correlation is recommended. SARA / DEBBIE: [id number] /
[2017-07-18] MEDS ORDERED: ARIPiprazole 2 MG TAB PO SCH (09:00)
== END 2017-07-14 15:30 | disposition home or self-care (01) ==
LOC: EC 13:30 → 3OBS 17:27
PROVIDERS: ADMIT Hospitalist; ATTEND Hospitalist
DX: R55 Syncope and collapse (principal); R42 Dizziness and giddiness; S00.11XA Contusion of right eyelid and periocular area, initial encounter; I10 Essential (primary) hypertension; J44.9 Chronic obstructive pulmonary disease, unspecified; M06.9 Rheumatoid arthritis, unspecified; E78.5 Hyperlipidemia, unspecified; H40.9 Unspecified glaucoma; F32.9 Major depressive disorder, single episode, unspecified; F41.9 Anxiety disorder, unspecified; E03.9 Hypothyroidism, unspecified; I73.9 Peripheral vascular disease, unspecified; M19.90 Unspecified osteoarthritis, unspecified site; Z79.02 Long term (current) use of antithrombotics/antiplatelets; Z79.899 Other long term (current) drug therapy; Z79.890 Hormone replacement therapy; Z79.82 Long term (current) use of aspirin; Z79.51 Long term (current) use of inhaled steroids; Z86.73 Personal history of transient ischemic attack (TIA), and cerebral infarction without residual deficits; Z91.81 History of falling; Z87.891 Personal history of nicotine dependence; W18.30XA Fall on same level, unspecified, initial encounter; Y92.002 Bathroom of unspecified non-institutional (private) residence as the place of occurrence of the external cause; Z82.49 Family history of ischemic heart disease and other diseases of the circulatory system; Z80.8 Family history of malignant neoplasm of other organs or systems; Z80.49 Family history of malignant neoplasm of other genital organs
CPT/HCPCS: 99285 ×2; 96360 ×2; 96372 ×2; 36415; 94640 ×3; 95816; 93005; 93017; 93306; 85379; 80053; 80048; 82550 ×2; 82553 ×2; 83735; 84484 ×2; 85025; 85610; 85730; 81003; 71046; 72125; 70450; 71275; 78452; G0378 ×3; A9500; J1650 ×2; J2785; Q9967

== ENCOUNTER → 2018-02-04 | Outpatient (CLI) | payer MEDICARE, OTHER ==
[2018-02-04 15:59] VITALS: BMI 38.2
== END | disposition home or self-care (01) ==
LOC: MNTWWP 13:02
PROVIDERS: ATTEND Family Medicine
DX: R73.09 Other abnormal glucose (principal)
CPT/HCPCS: 97802

== ENCOUNTER → 2018-05-02 | Outpatient (CLI) | payer MEDICARE, OTHER ==
--- NOTE | 2018-05-02 14:30 | MM ---
Reason for exam: additional evaluation requested from prior study. Last mammogram was performed 1 year and 2 months ago. History: Patient is postmenopausal and is nulliparous. Benign US biopsy breast VAD RT of the right breast, March 07, 2017. Benign left mammotome panel of the left breast, December 14, 2004. Took estrogen beginning at age 30. Physical Findings: Nurse did not find any significant physical abnormalities on exam. MG Diagnostic Mammo w CAD EDUARDO Bilateral CC and MLO view(s) were taken. Prior study comparison: March 07, 2017, right breast MG diagnostic mammo RT wo CAD. February 14, 2017, bilateral MG 3d diag mammo w/cad EDUARDO. The breast tissue is heterogeneously dense. This may lower the sensitivity of mammography. There are benign appearing round calcifications in the right breast. Previous mammotome biopsy in the right and left breast. There is no discrete abnormality. These results were verbally communicated with the patient and result sheet given to the patient on 05/02/18. ASSESSMENT: Benign, BI-RAD 2 RECOMMENDATION: Routine screening mammogram of both breasts in 1 year.
== END | disposition home or self-care (01) ==
LOC: RADMAMWWP 12:46
PROVIDERS: ATTEND Family Medicine
DX: R92.8 Other abnormal and inconclusive findings on diagnostic imaging of breast (principal)
CPT/HCPCS: 77066

== ENCOUNTER 2018-06-12 09:35 | Day surgery (SDC) | payer MEDICARE, OTHER ==
[2018-06-11 09:19] VITALS: BMI 32.5
[~2018-06-12 09:35] MED LIST: LACTATED RINGERS 1,000 ML IV SCH; LIDOCAINE 1% 20 ML VIAL (10MG/ML) FOR IV START INTRADERMA PRN
[2018-06-12 10:13] VITALS: RESP 16; TEMP 97.6
[2018-06-12] MEDS ORDERED: LIDOCAINE 1% INJ 10MG/ML (20 ML MDV) ONE (10:29)
[2018-06-12] MEDS ORDERED: GLUCAGON 1 MG/ML VIAL ONE (10:29)
[2018-06-12] MEDS ORDERED: PROPOFOL 10 MG/ML 20 ML VIAL IV ONE (10:29)
[2018-06-12] MEDS ORDERED: ePHEDrine SULFATE/0.9% NACL/PF 50 MG/5 ML SYRINGE IV ONE (10:29)
--- NOTE | 2018-06-12 10:59 | P.PCN ---
Date of Procedure: 06/12/18 Procedure(s) Performed: BRIEF HISTORY: Patient is a 72-year-old pleasant female scheduled for an elective colonoscopy as a part of evaluation of prior history of colon polyps. Last colonoscopy was performed 3 years ago and she was noted to have colon polyps. PROCEDURE PERFORMED: Colonoscopy with snare polypectomy. PREOPERATIVE DIAGNOSIS History of colon polyps IV sedation per Anesthesia. PROCEDURE: After informed consent was obtained, the patient, was brought into the endoscopy unit. IV sedation was administered by Anesthesia under continuous monitoring. Digital rectal examination was normal. Initially the Olympus CF-160 flexible video colonoscope was then inserted in the rectum, gradually advanced into the cecum without any difficulty. Careful examination was performed as the scope was gradually being withdrawn. Ileocecal valve and the appendiceal orifice were visualized and appeared normal. Prep was poor and several areas of the colon. Mucosa of the cecum, appeared normal. In the distal ascending colon there was a 2 cm broad-based polyp that was removed by piecemeal snare polyp ectomy. ascending colon, transverse colon, descending colon, appeared normal. The sigmoid colon there was a 1 cm polyp removed by snare polypectomy. Rest of the sigmoid colon, and rectum appeared normal. Retroflexion was performed in the rectum and no lesions were seen. The patient tolerated the procedure well. IMPRESSION: 2 cm broad-based distal ascending colon polyp status post polypectomy 1 cm sigmoid colon polyp status post polypectomy Poor prep in several areas of the colon RECOMMENDATIONS: Findings of this examination were discussed with the patient well as her family. She was advised to follow with the biopsy results and have a repeat colonoscopy in 3 years. Anesthesia: MAC
[2018-06-12 11:55] VITALS: BP 98/56; PULSE 69
== END 2018-06-12 11:59 | disposition home or self-care (01) ==
LOC: ORWHC2ENDO 09:35
PROVIDERS: ATTEND Internal Medicine Gastroenterology
DX: Z86.010 Personal history of colon polyps (principal); D12.2 Benign neoplasm of ascending colon; D12.5 Benign neoplasm of sigmoid colon; E78.5 Hyperlipidemia, unspecified; E07.9 Disorder of thyroid, unspecified; Z96.643 Presence of artificial hip joint, bilateral; F41.9 Anxiety disorder, unspecified; F32.9 Major depressive disorder, single episode, unspecified; Z79.890 Hormone replacement therapy; Z79.891 Long term (current) use of opiate analgesic; Z79.899 Other long term (current) drug therapy
CPT/HCPCS: 88305; 45385; J1610; J2001; J2704

== ENCOUNTER 2019-07-17 13:53 | Emergency (ER) | payer MEDICARE, OTHER ==
[2019-07-17] MEDS ORDERED: SODIUM CHLORIDE 0.9% 1,000 ML IV STA (14:20)
[2019-07-17 14:43] LABS: Basophils # (A) 0.1 k/uL (0-0.2); Basophils % (A) 1 %; Eosinophils # (A) 0.6 k/uL (0-0.7); Eosinophils % (A) 8 %; HCT 43.9 % (34.0-46.0); HGB 13.9 gm/dL (11.4-16.0); Lymphocytes # (A) 1.4 k/uL (1.0-4.8); Lymphocytes % (A) 20 %; MCH 30.1 pg (25.0-35.0); MCHC 31.8 g/dL (31.0-37.0); MCV 94.8 fL (80.0-100.0); Mean Platelet Volume 8.1; Monocytes # (A) 0.5 k/uL (0-1.0); Monocytes % (A) 7 %; Neutrophils # (A) 4.5 k/uL (1.3-7.7); Neutrophils % (A) 61 %; Platelet Count 225 k/uL (150-450); RBC 4.63 m/uL (3.80-5.40); WBC 7.4 k/uL (3.8-10.6)
[2019-07-17 14:51] LABS: Albumin 4.1 g/dL (3.5-5.0); Calcium 9.4 mg/dL (8.4-10.2); Total Bilirubin 1.1 mg/dL (0.2-1.3); Total Protein 7.4 g/dL (6.3-8.2)
[2019-07-17 14:52] LABS: Amorphous Sediment,Urine Rare /hpf; Appearance,Urine Cloudy (Clear); Bilirubin,Urine Negative (Negative); Blood,Urine Negative (Negative); Color,Urine Yellow; Glucose,Urine (UA) Negative (Negative); Hyaline Casts,Urine 3 /lpf (0-2); Ketones,Urine Negative (Negative); Leukocyte Esterase,Urine Moderate (Negative); Mucus,Urine Many /hpf; Nitrite,Urine Negative (Negative); PH, Urine 5.5 (5.0-8.0); Protein,Urine Trace (Negative); RBC,Urine 3 /hpf (0-5); Specific Gravity,Urine 1.025 (1.001-1.035); Squamous Epithelial Cell,Urine 3 /hpf (0-4); Urobilinogen,Urine <2.0 mg/dL (<2.0); WBC,Urine 4 /hpf (0-5)
--- NOTE | 2019-07-17 14:53 | ED ---
Nausea/Vomiting/Diarrhea HPI <João Conti - Last Filed: 07/17/19 17:14> - General Source: patient Mode of arrival: wheelchair Limitations: physical limitation <Neida Mukherjee - Last Filed: 07/17/19 19:30> - General Chief complaint: Nausea/Vomiting/Diarrhea Stated complaint: diarrhea Time Seen by Provider: 07/17/19 14:05 - History of Present Illness Initial comments: Patient is a 73-year-old female presenting to the emergency Department with complaints of diarrhea this been ongoing for almost one month. Patient states she originally went to her PCP and was diagnosed with a UTI and was started on an unknown antibiotic. She completed this antibiotic but then developed diarrhea. Patient states her doctor put her on Flagyl which she did finish however she continues to have diarrhea. She is feeling weaker and decided to come to the ER. Patient states she does have a follow-up with Dr. Dempsey tomorrow but states she could not wait. Patient states she has been having about 4-5 episodes of diarrhea a day. She states her appetite is declined and she is trying to drink enough water. She denies any abdominal pain, nausea, vomiting, chest pain, short of breath. She denies any fever or chills. She states she has not tried antidiarrheal medication. She has tried Pepto without relief. She has no other complaints at this time. (Neida Mukherjee) - Related Data Home Medications Medication Instructions Recorded Confirmed ALPRAZolam [Xanax] 0.5 mg PO TID PRN 11/25/13 06/11/18 ARIPiprazole [Abilify] 2 mg PO WE 11/25/13 06/11/18 Amitriptyline HCl [Elavil] 25 mg PO HS 11/25/13 06/11/18 Philipp Cit/Mag/D3/Zn/Community Health Advocate/J Luis/Bor 1 tab PO DAILY 11/25/13 06/11/18 [Citracal-Vit D + Magnesium Tab] Clopidogrel [Plavix] 75 mg PO DAILY 11/25/13 06/11/18 Latanoprost Ophth [Xalatan 0.005%] 1 drops BOTH EYES HS 11/25/13 06/11/18 Multivitamin/Iron/Folic Acid 1 tab PO DAILY 11/25/13 06/11/18 [Centrum Complete Multivit Tab] Timolol 0.5% Ophth Soln [Timoptic 1 drop BOTH EYES BID 11/25/13 06/11/18 0.5% Ophth Soln] Citalopram Hydrobromide [CeleXA] 40 mg PO DAILY 08/24/15 06/11/18 Aspirin 81 mg PO HS 07/12/17 06/11/18 Fluticasone Propionate [Flovent 2 puff INHALATION BID 07/12/17 06/11/18 Hfa 110 mcg] Ubidecarenone [Co Q-10] 100 mg PO DAILY 07/12/17 07/12/17 Atorvastatin [Lipitor] 80 mg PO DAILY 06/11/18 06/11/18 Levothyroxine Sodium [Synthroid] 75 mcg PO DAILY 06/11/18 06/11/18 Allergies Allergy/AdvReac Type Severity Reaction Status Date / Time No Known Allergies Allergy Verified 07/17/19 14:02 Review of Systems ROS Other: All systems not noted in ROS Statement are negative. <João Conti - Last Filed: 07/17/19 17:14> ROS Other: All systems not noted in ROS Statement are negative. <Neida Mukherjee - Last Filed: 07/17/19 19:30> ROS Statement: Those systems with pertinent positive or pertinent negative responses have been documented in the HPI. Past Medical History Past Medical History: CVA/TIA, Hyperlipidemia, Osteoarthritis (OA), Thyroid Disorder Additional Past Medical History / Comment(s): HX OF COLON POLYP, glaucoma, CVA 1997 and TIA 2011 History of Any Multi-Drug Resistant Organisms: None Reported Past Surgical History: Joint Replacement, Orthopedic Surgery Additional Past Surgical History / Comment(s): cyst removed left ovary, detached retina repair, artery in groin 99% blocked "cleaned out", sinus surgery 2001, bilat hip replacement 2005 and 2013, cataract surgery sarina, hx of sciatic nerve block Past Anesthesia/Blood Transfusion Reactions: No Reported Reaction Past Psychological History: Anxiety, Depression Smoking Status: Former smoker Past Alcohol Use History: None Reported Past Drug Use History: None Reported - Past Family History Brother(s) Family Medical History: Cancer Additional Family Medical History / Comment(s): pancreatic Sister(s) Family Medical History: Cancer, Myocardial Infarction ([place]) Additional Family Medical History / Comment(s): skin cancer and cervical cancer Father Family Medical History: Coronary Artery Disease (CAD) <Neida Mukherjee - Last Filed: 07/17/19 19:30> General Exam Limitations: physical limitation <YazNeida L - Last Filed: 07/17/19 19:30> - General Exam Comments Initial Comments: GENERAL: Well-appearing, well-nourished and in no acute distress. HEAD: Atraumatic, normocephalic. EYES: Pupils equal round and reactive to light, extraocular movements intact, sclera anicteric, conjunctiva are normal. ENT: TMs normal, nares patent, oropharynx clear without exudates. Moist mucous membranes. NECK: Normal range of motion, supple without lymphadenopathy or JVD. LUNGS: Breath sounds clear to auscultation bilaterally and equal. No wheezes rales or rhonchi. HEART: Regular rate and rhythm without murmurs, rubs or gallops. ABDOMEN: Soft, nontender, normoactive bowel sounds. No guarding, no rebound. No masses appreciated. : Deferred EXTREMITIES: Normal range of motion, no pitting or edema. No clubbing or cyanosis. NEUROLOGICAL: Cranial nerves II through XII grossly intact. Normal speech, normal gait. PSYCH: Normal mood, normal affect. SKIN: Warm, Dry, normal turgor, no rashes or lesions noted. (Neida Mukherjee) Course <João Conti - Last Filed: 07/17/19 17:14> Vital Signs 07/17/19 07/17/19 07/17/19 13:58 14:45 14:51 Temperature 98.3 F Pulse Rate 56 L 54 L 55 L Respiratory 18 18 18 Rate Blood Pressure 154/83 147/70 147/70 O2 Sat by Pulse 97 99 100 Oximetry 07/17/19 07/17/19 07/17/19 15:00 15:30 15:44 Temperature Pulse Rate 57 L 55 L 54 L Respiratory 16 16 16 Rate Blood Pressure 147/70 131/70 146/69 O2 Sat by Pulse 97 97 99 Oximetry 07/17/19 07/17/19 07/17/19 16:00 16:30 17:57 Temperature 98.0 F Pulse Rate 55 L 56 L 55 L Respiratory 16 19 16 Rate Blood Pressure 146/69 143/81 155/77 O2 Sat by Pulse 100 99 98 Oximetry - Reevaluation(s) Reevaluation #1: 07/17/19 17:14 PA supervision: I proceeded [id number] evaluation the patient patient did present with complaints of some diarrhea. The C. diff test is negative. Patient will be discharged home and follow-up with her doctor as planned. (João Conti) Medical Decision Making - Lab Data Result diagrams: 07/17/19 14:30 07/17/19 14:30 <João Conti - Last Filed: 07/17/19 17:14> - Lab Data Result diagrams: 07/17/19 14:30 07/17/19 14:30 <Neida Mukherjee - Last Filed: 07/17/19 19:30> - Medical Decision Making Patient is a 73-year-old female here for diarrhea has been ongoing for 1 month. She had completed a course of antibiotic for UTI as well as course of Flagyl for the diarrhea. Her vitals are stable. Her exam is unremarkable. No abdominal pain. Lab work shows no acute findings, urine shows no evidence for infection. C. diff is negative. Stool culture is pending. Patient was given fluids in the ER. I discussed with patient to have a trial of Imodium for the diarrhea. She will follow up with her PCP tomorrow as scheduled. Patient was given one dose of Imodium in the ER. She is agreement with this plan of care. Return parameters were discussed with the patient she verbalized understanding. Case discussed with Dr. Conti. (Neida Mukherjee) - Lab Data Lab Results 07/17/19 07/17/19 07/17/19 Range/Units 14:30 14:30 14:40 WBC 7.4 (3.8-10.6) k/uL RBC 4.63 (3.80-5.40) m/uL Hgb 13.9 (11.4-16.0) gm/dL Hct 43.9 (34.0-46.0) % MCV 94.8 (80.0-100.0) fL MCH 30.1 (25.0-35.0) pg MCHC 31.8 (31.0-37.0) g/dL RDW 14.0 (11.5-15.5) % Plt Count 225 (150-450) k/uL Neutrophils % 61 % Lymphocytes % 20 % Monocytes % 7 % Eosinophils % 8 % Basophils % 1 % Neutrophils # 4.5 (1.3-7.7) k/uL Lymphocytes # 1.4 (1.0-4.8) k/uL Monocytes # 0.5 (0-1.0) k/uL Eosinophils # 0.6 (0-0.7) k/uL Basophils # 0.1 (0-0.2) k/uL Sodium 138 (137-145) mmol/L Potassium 4.0 (3.5-5.1) mmol/L Chloride 104 (98-107) mmol/L Carbon Dioxide 29 (22-30) mmol/L Anion Gap 5 mmol/L BUN 14 (7-17) mg/dL Creatinine 0.80 (0.52-1.04) mg/dL Est GFR (CKD-EPI)AfAm 86 (>60 ml/min/1.73 sqM) Est GFR (CKD-EPI)NonAf 75 (>60 ml/min/1.73 sqM) Glucose 106 H (74-99) mg/dL Calcium 9.4 (8.4-10.2) mg/dL Total Bilirubin 1.1 (0.2-1.3) mg/dL AST 35 (14-36) U/L ALT 23 (4-34) U/L Alkaline Phosphatase 81 (38-126) U/L Total Protein 7.4 (6.3-8.2) g/dL Albumin 4.1 (3.5-5.0) g/dL Urine Color Yellow Urine Appearance Cloudy H (Clear) Urine pH 5.5 (5.0-8.0) Ur Specific [place] 1.025 (1.001-1.035) Urine Protein Trace H (Negative) Urine Glucose (UA) Negative (Negative) Urine Ketones Negative (Negative) Urine Blood Negative (Negative) Urine Nitrite Negative (Negative) Urine Bilirubin Negative (Negative) Urine Urobilinogen <2.0 (<2.0) mg/dL Ur Leukocyte Esterase Moderate H (Negative) Urine RBC 3 (0-5) /hpf Urine WBC 4 (0-5) /hpf Ur Squamous Epith Cells 3 (0-4) /hpf Amorphous Sediment Rare H (None) /hpf Hyaline Casts 3 H (0-2) /lpf Urine Mucus Many H (None) /hpf C. difficile (EIA) Intrp (Negative) 05/14/20 Range/Units 15:43 WBC (3.8-10.6) k/uL RBC (3.80-5.40) m/uL Hgb (11.4-16.0) gm/dL Hct (34.0-46.0) % MCV (80.0-100.0) fL MCH (25.0-35.0) pg MCHC (31.0-37.0) g/dL RDW (11.5-15.5) % Plt Count (150-450) k/uL Neutrophils % % Lymphocytes % % Monocytes % % Eosinophils % % Basophils % % Neutrophils # (1.3-7.7) k/uL Lymphocytes # (1.0-4.8) k/uL Monocytes # (0-1.0) k/uL Eosinophils # (0-0.7) k/uL Basophils # (0-0.2) k/uL Sodium (137-145) mmol/L Potassium (3.5-5.1) mmol/L Chloride (98-107) mmol/L Carbon Dioxide (22-30) mmol/L Anion Gap mmol/L BUN (7-17) mg/dL Creatinine (0.52-1.04) mg/dL Est GFR (CKD-EPI)AfAm (>60 ml/min/1.73 sqM) Est GFR (CKD-EPI)NonAf (>60 ml/min/1.73 sqM) Glucose (74-99) mg/dL Calcium (8.4-10.2) mg/dL Total Bilirubin (0.2-1.3) mg/dL AST (14-36) U/L ALT (4-34) U/L Alkaline Phosphatase (38-126) U/L Total Protein (6.3-8.2) g/dL Albumin (3.5-5.0) g/dL Urine Color Urine Appearance (Clear) Urine pH (5.0-8.0) Ur Specific [place] (1.001-1.035) Urine Protein (Negative) Urine Glucose (UA) (Negative) Urine Ketones (Negative) Urine Blood (Negative) Urine Nitrite (Negative) Urine Bilirubin (Negative) Urine Urobilinogen (<2.0) mg/dL Ur Leukocyte Esterase (Negative) Urine RBC (0-5) /hpf Urine WBC (0-5) /hpf Ur Squamous Epith Cells (0-4) /hpf Amorphous Sediment (None) /hpf Hyaline Casts (0-2) /lpf Urine Mucus (None) /hpf C. difficile (EIA) Intrp Negative (Negative) Disposition <João Conti - Last Filed: 07/17/19 17:14> Is patient prescribed a controlled substance at d/c from ED?: No <Neida Mukherjee - Last Filed: 07/17/19 19:30> Clinical Impression: Dehydration, Diarrhea Disposition: HOME SELF-CARE Condition: Stable Instructions (If sedation given, give patient instructions): Acute Diarrhea (ED) Additional Instructions: Please return to the Emergency Department if symptoms worsen or any other concerns. Continue with Imodium as directed. Follow-up with Dr. Dempsey. Referrals: Rusty Dempsey DO [Primary Care Provider] - 1-2 days
[2019-07-17] MEDS ORDERED: LOPERAMIDE 2 MG CAP PO STA (17:03)
[2019-07-17 17:59] VITALS: BP 155/77; PULSE 55; RESP 16; TEMP 98
== END 2019-07-17 17:57 | disposition home or self-care (01) ==
LOC: EC 13:53
DX: E86.0 Dehydration (principal); R19.7 Diarrhea, unspecified; E78.5 Hyperlipidemia, unspecified; F41.9 Anxiety disorder, unspecified; F32.9 Major depressive disorder, single episode, unspecified; E07.9 Disorder of thyroid, unspecified; Z79.82 Long term (current) use of aspirin; Z79.890 Hormone replacement therapy; Z79.899 Other long term (current) drug therapy; Z79.51 Long term (current) use of inhaled steroids; Z79.02 Long term (current) use of antithrombotics/antiplatelets; Z87.891 Personal history of nicotine dependence; Z86.73 Personal history of transient ischemic attack (TIA), and cerebral infarction without residual deficits; Z96.643 Presence of artificial hip joint, bilateral
CPT/HCPCS: 36415; 80053; 81001; 85025; 87045; 87046; 87324; 96360; 99284

== ENCOUNTER 2019-08-03 16:00 | Observation (INO) | payer MEDICARE, OTHER ==
[2019-08-03] MEDS ORDERED: SODIUM CHLORIDE 0.9% 1,000 ML IV STA (16:32)
--- NOTE | 2019-08-03 16:33 | ED ---
Weakness HPI - General Source: patient Mode of arrival: wheelchair Limitations: physical limitation <Neida Mukherjee - Last Filed: 08/03/19 19:39> <Bibiana Lutzah Marija - Last Filed: 08/06/19 11:42> - General Chief complaint: Weakness Stated complaint: Weakness Time Seen by Provider: 08/03/19 16:13 - History of Present Illness Initial comments: Patient is a 73-year-old female presenting to the emergency Department with complaints of generalized weakness for the past few weeks. She is also experiencing 1 week of diarrhea. Patient was in the ER 2 weeks ago for a similar complaint. Her C. diff was negative and she was supposed to see her PCP however she change that appointment and is going to see her PCP in a few days. Patient states her diarrhea did go away however it came back a few days ago. She states she did try 2 tablets of Imodium today without improvement. Patient denies any new antibiotics. She denies recent fever, chills, abdominal pain, nausea, vomiting, chest pain, short of breath. Patient's basic complaint is "she feels so weak that she cannot continue like this." He denies any urinary complaints. She has no further complaints at this time. Upon arrival to the ER, her vitals are stable. (Neida Mukherjee) - Related Data Home Medications Medication Instructions Recorded Confirmed ARIPiprazole [Abilify] 2 mg PO WE 11/25/13 08/03/19 Philipp Cit/Mag/D3/Zn/Business Account Leader/J Luis/Bor 1 tab PO DAILY 11/25/13 08/03/19 [Citracal-Vit D + Magnesium Tab] Clopidogrel [Plavix] 75 mg PO DAILY 11/25/13 08/03/19 Latanoprost Ophth [Xalatan 0.005%] 1 drops BOTH EYES HS 11/25/13 08/03/19 Multivitamin/Iron/Folic Acid 1 tab PO DAILY 11/25/13 08/03/19 [Centrum Complete Multivit Tab] Citalopram Hydrobromide [CeleXA] 40 mg PO DAILY 08/24/15 08/03/19 Aspirin 81 mg PO HS 07/12/17 08/03/19 Atorvastatin [Lipitor] 80 mg PO DAILY 06/11/18 08/03/19 Dorzolamide-Timol 2.23%/0.68% 1 drop BOTH EYES BID 08/03/19 08/03/19 [Cosopt] Levothyroxine (Unknown Dose) 1 tab PO DAILY 08/03/19 08/03/19 Previous Rx's Medication Instructions Recorded Loperamide [Imodium] 2 mg PO Q6H PRN cap 08/04/19 Melatonin 3 mg PO HS tablet 08/04/19 Psyllium Husk 100% [Metamucil 6 gm PO BID #30 packet 08/04/19 Packet] Allergies Allergy/AdvReac Type Severity Reaction Status Date / Time No Known Allergies Allergy Verified 08/03/19 18:45 Review of Systems ROS Other: All systems not noted in ROS Statement are negative. <Neiad Mukherjee - Last Filed: 08/03/19 19:39> ROS Other: All systems not noted in ROS Statement are negative. <Rachel Lutz - Last Filed: 08/06/19 11:42> ROS Statement: Those systems with pertinent positive or pertinent negative responses have been documented in the HPI. Past Medical History Past Medical History: CVA/TIA, Hyperlipidemia, Osteoarthritis (OA), Thyroid Disorder Additional Past Medical History / Comment(s): HX OF COLON POLYP, glaucoma, CVA 1997 and TIA 2011 History of Any Multi-Drug Resistant Organisms: None Reported Past Surgical History: Joint Replacement, Orthopedic Surgery Additional Past Surgical History / Comment(s): cyst removed left ovary, detached retina repair, artery in groin 99% blocked "cleaned out", sinus surgery 2001, bilat hip replacement 2005 and 2013, cataract surgery sarina, hx of sciatic nerve block Past Anesthesia/Blood Transfusion Reactions: No Reported Reaction Past Psychological History: Anxiety, Depression Smoking Status: Former smoker Past Alcohol Use History: None Reported Past Drug Use History: None Reported - Past Family History Brother(s) Family Medical History: Cancer Additional Family Medical History / Comment(s): pancreatic Sister(s) Family Medical History: Cancer, Myocardial Infarction ([place]) Additional Family Medical History / Comment(s): skin cancer and cervical cancer Father Family Medical History: Coronary Artery Disease (CAD) <Neida Mukherjee - Last Filed: 08/03/19 19:39> General Exam Limitations: physical limitation <Neida Mukherjee - Last Filed: 08/03/19 19:39> - General Exam Comments Initial Comments: GENERAL: Well-appearing, well-nourished and in no acute distress. HEAD: Atraumatic, normocephalic. EYES: Pupils equal round and reactive to light, extraocular movements intact, sclera anicteric, conjunctiva are normal. ENT: TMs normal, nares patent, oropharynx clear without exudates. Moist mucous membranes. NECK: Normal range of motion, supple without lymphadenopathy or JVD. LUNGS: Breath sounds clear to auscultation bilaterally and equal. No wheezes rales or rhonchi. HEART: Bradycardic rate and rhythm without murmurs, rubs or gallops. ABDOMEN: Soft, nontender, normoactive bowel sounds. No guarding, no rebound. No masses appreciated. : Deferred EXTREMITIES: Normal range of motion, no pitting or edema. No clubbing or cyanosis. NEUROLOGICAL: Cranial nerves II through XII grossly intact. Normal speech, normal gait. PSYCH: Normal mood, normal affect. SKIN: Warm, Dry, normal turgor, no rashes or lesions noted. (Neida Mukherjee) Course Vital Signs 08/03/19 08/03/19 08/03/19 16:07 16:32 17:06 Temperature 98.5 F Pulse Rate 63 47 L Pulse Rate [ 47 L Grooving Machine Operator ] Respiratory 18 16 Rate Blood Pressure 126/71 131/77 Blood Pressure [Right Arm] O2 Sat by Pulse 98 99 Oximetry 08/03/19 08/03/19 08/03/19 18:00 18:58 19:00 Temperature 98.3 F 98.1 F Pulse Rate 49 L 49 L Pulse Rate [ 48 L Grooving Machine Operator ] Respiratory 20 20 20 Rate Blood Pressure 138/65 141/67 Blood Pressure 130/61 [Right Arm] O2 Sat by Pulse 99 99 Oximetry EKG Findings - EKG Comments: EKG Findings:: EKG shows sinus bradycardia, otherwise normal ECG. No signs of acute ischemia or changes. Ventricular rate is 48, VT interval 172, QTC 414. Similar to previous EKG on 07/12/2017. <Neida Mukherjee - Last Filed: 08/03/19 19:39> Medical Decision Making - Lab Data Result diagrams: 08/03/19 16:55 08/03/19 16:55 <Neida Mukherjee - Last Filed: 08/03/19 19:39> - Lab Data Result diagrams: 08/03/19 16:55 08/03/19 16:55 <Rachel Lutz - Last Filed: 08/06/19 11:42> - Medical Decision Making Patient is a 73-year-old female presenting with weakness and a few days of diarrhea. Patient was in the ER 2 weeks ago for similar complaint. C. diff was negative at that time. Patient presented afebrile, slightly bradycardia. EKG shows bradycardia, no other abnormal findings. Lab work is unremarkable, troponin is normal, BNP is 235, lactic acid 0.9. Urine is normal no signs of infection. Chest x-ray reveals no acute findings. Patient was given fluids and continues to feel weak. Patient's heart rate continues to be bradycardic at 47. Patient will be admitted for weakness, diarrhea. Accepting physician is Dr. Montano with GI on consult. Stool sample is pending. Patient is in agreement with this plan of care. Case discussed in detail with Dr. Lutz. (Neida Mukherjee) I was available for consultation in the emergency department. The history and physical exam were done by the midlevel provider. I was consulted for this patients care. I reviewed the case with the midlevel provider and based on their presentation of the patient, I agree with the assessment, medical decision making and plan of care as documented. Chart was dictated using [employer] dictation software. Attempts were made to correct any dictation errors however some typographical errors may persist. Patient was seen during a national state of emergency due to the Covid-19 pandemic. (Rachel Lutz) - Lab Data Lab Results 08/03/19 08/03/19 08/03/19 Range/Units 16:55 16:55 16:55 WBC 7.3 (3.8-10.6) k/uL RBC 4.46 (3.80-5.40) m/uL Hgb 13.8 (11.4-16.0) gm/dL Hct 41.9 (34.0-46.0) % MCV 93.9 (80.0-100.0) fL MCH 31.0 (25.0-35.0) pg MCHC 33.0 (31.0-37.0) g/dL RDW 13.8 (11.5-15.5) % Plt Count 197 (150-450) k/uL Neutrophils % 54 % Lymphocytes % 27 % Monocytes % 8 % Eosinophils % 7 % Basophils % 1 % Neutrophils # 3.9 (1.3-7.7) k/uL Lymphocytes # 2.0 (1.0-4.8) k/uL Monocytes # 0.6 (0-1.0) k/uL Eosinophils # 0.5 (0-0.7) k/uL Basophils # 0.1 (0-0.2) k/uL PT 10.1 (9.0-12.0) sec INR 1.0 (<1.2) APTT 22.2 (22.0-30.0) sec Sodium 139 (137-145) mmol/L Potassium 4.4 (3.5-5.1) mmol/L Chloride 104 (98-107) mmol/L Carbon Dioxide 30 (22-30) mmol/L Anion Gap 5 mmol/L BUN 13 (7-17) mg/dL Creatinine 0.78 (0.52-1.04) mg/dL Est GFR (CKD-EPI)AfAm 89 (>60 ml/min/1.73 sqM) Est GFR (CKD-EPI)NonAf 77 (>60 ml/min/1.73 sqM) Glucose 100 H (74-99) mg/dL Plasma Lactic Acid Pranav (0.7-2.0) mmol/L Calcium 9.4 (8.4-10.2) mg/dL Magnesium 2.0 (1.6-2.3) mg/dL Total Bilirubin 1.3 (0.2-1.3) mg/dL AST 30 (14-36) U/L ALT 17 (4-34) U/L Alkaline Phosphatase 83 (38-126) U/L Troponin I (0.000-0.034) ng/mL NT-Pro-B Natriuret Pep pg/mL Total Protein 7.0 (6.3-8.2) g/dL Albumin 3.9 (3.5-5.0) g/dL TSH (0.465-4.680) mIU/L Urine Color Urine Appearance (Clear) Urine pH (5.0-8.0) Ur Specific [place] (1.001-1.035) Urine Protein (Negative) Urine Glucose (UA) (Negative) Urine Ketones (Negative) Urine Blood (Negative) Urine Nitrite (Negative) Urine Bilirubin (Negative) Urine Urobilinogen (<2.0) mg/dL Ur Leukocyte Esterase (Negative) 08/03/19 08/03/19 08/03/19 Range/Units 16:55 16:55 16:55 WBC (3.8-10.6) k/uL RBC (3.80-5.40) m/uL Hgb (11.4-16.0) gm/dL Hct (34.0-46.0) % MCV (80.0-100.0) fL MCH (25.0-35.0) pg MCHC (31.0-37.0) g/dL RDW (11.5-15.5) % Plt Count (150-450) k/uL Neutrophils % % Lymphocytes % % Monocytes % % Eosinophils % % Basophils % % Neutrophils # (1.3-7.7) k/uL Lymphocytes # (1.0-4.8) k/uL Monocytes # (0-1.0) k/uL Eosinophils # (0-0.7) k/uL Basophils # (0-0.2) k/uL PT (9.0-12.0) sec INR (<1.2) APTT (22.0-30.0) sec Sodium (137-145) mmol/L Potassium (3.5-5.1) mmol/L Chloride (98-107) mmol/L Carbon Dioxide (22-30) mmol/L Anion Gap mmol/L BUN (7-17) mg/dL Creatinine (0.52-1.04) mg/dL Est GFR (CKD-EPI)AfAm (>60 ml/min/1.73 sqM) Est GFR (CKD-EPI)NonAf (>60 ml/min/1.73 sqM) Glucose (74-99) mg/dL Plasma Lactic Acid Pranav 0.9 (0.7-2.0) mmol/L Calcium (8.4-10.2) mg/dL Magnesium (1.6-2.3) mg/dL Total Bilirubin (0.2-1.3) mg/dL AST (14-36) U/L ALT (4-34) U/L Alkaline Phosphatase (38-126) U/L Troponin I <0.012 (0.000-0.034) ng/mL NT-Pro-B Natriuret Pep 235 pg/mL Total Protein (6.3-8.2) g/dL Albumin (3.5-5.0) g/dL TSH (0.465-4.680) mIU/L Urine Color Urine Appearance (Clear) Urine pH (5.0-8.0) Ur Specific [place] (1.001-1.035) Urine Protein (Negative) Urine Glucose (UA) (Negative) Urine Ketones (Negative) Urine Blood (Negative) Urine Nitrite (Negative) Urine Bilirubin (Negative) Urine Urobilinogen (<2.0) mg/dL Ur Leukocyte Esterase (Negative) 08/03/19 08/03/19 Range/Units 16:55 18:23 WBC (3.8-10.6) k/uL RBC (3.80-5.40) m/uL Hgb (11.4-16.0) gm/dL Hct (34.0-46.0) % MCV (80.0-100.0) fL MCH (25.0-35.0) pg MCHC (31.0-37.0) g/dL RDW (11.5-15.5) % Plt Count (150-450) k/uL Neutrophils % % Lymphocytes % % Monocytes % % Eosinophils % % Basophils % % Neutrophils # (1.3-7.7) k/uL Lymphocytes # (1.0-4.8) k/uL Monocytes # (0-1.0) k/uL Eosinophils # (0-0.7) k/uL Basophils # (0-0.2) k/uL PT (9.0-12.0) sec INR (<1.2) APTT (22.0-30.0) sec Sodium (137-145) mmol/L Potassium (3.5-5.1) mmol/L Chloride (98-107) mmol/L Carbon Dioxide (22-30) mmol/L Anion Gap mmol/L BUN (7-17) mg/dL Creatinine (0.52-1.04) mg/dL Est GFR (CKD-EPI)AfAm (>60 ml/min/1.73 sqM) Est GFR (CKD-EPI)NonAf (>60 ml/min/1.73 sqM) Glucose (74-99) mg/dL Plasma Lactic Acid Pranav (0.7-2.0) mmol/L Calcium (8.4-10.2) mg/dL Magnesium (1.6-2.3) mg/dL Total Bilirubin (0.2-1.3) mg/dL AST (14-36) U/L ALT (4-34) U/L Alkaline Phosphatase (38-126) U/L Troponin I (0.000-0.034) ng/mL NT-Pro-B Natriuret Pep pg/mL Total Protein (6.3-8.2) g/dL Albumin (3.5-5.0) g/dL TSH 3.720 (0.465-4.680) mIU/L Urine Color Light Yellow Urine Appearance Clear (Clear) Urine pH 6.0 (5.0-8.0) Ur Specific [place] 1.007 (1.001-1.035) Urine Protein Negative (Negative) Urine Glucose (UA) Negative (Negative) Urine Ketones Negative (Negative) Urine Blood Negative (Negative) Urine Nitrite Negative (Negative) Urine Bilirubin Negative (Negative) Urine Urobilinogen <2.0 (<2.0) mg/dL Ur Leukocyte Esterase Negative (Negative) Disposition Is patient prescribed a controlled substance at d/c from ED?: No Decision Date: 08/03/19 Decision Time: 18:43 <Neida Mukherjee - Last Filed: 08/03/19 19:39> <Rachel Lutz - Last Filed: 08/06/19 11:42> Clinical Impression: Weakness, Diarrhea, Bradycardia Disposition: ADMITTED IP TO THIS HOSP Condition: Stable
[2019-08-03 17:01] LABS: Basophils # (A) 0.1 k/uL (0-0.2); Basophils % (A) 1 %; Eosinophils # (A) 0.5 k/uL (0-0.7); Eosinophils % (A) 7 %; HCT 41.9 % (34.0-46.0); HGB 13.8 gm/dL (11.4-16.0); Lymphocytes % (A) 27 %; MCV 93.9 fL (80.0-100.0); Mean Platelet Volume 8.8; Monocytes # (A) 0.6 k/uL (0-1.0); Monocytes % (A) 8 %; Neutrophils # (A) 3.9 k/uL (1.3-7.7); Neutrophils % (A) 54 %; Platelet Count 197 k/uL (150-450); RBC 4.46 m/uL (3.80-5.40); RDW 13.8 % (11.5-15.5); WBC 7.3 k/uL (3.8-10.6)
[2019-08-03 17:11] LABS: Albumin 3.9 g/dL (3.5-5.0); Calcium 9.4 mg/dL (8.4-10.2); Partial Thromboplastin Time 22.2 sec (22.0-30.0); Potassium 4.4 mmol/L (3.5-5.1); Prothrombin Time 10.1 sec (9.0-12.0); Total Bilirubin 1.3 mg/dL (0.2-1.3)
--- NOTE | 2019-08-03 17:40 | XR ---
EXAMINATION TYPE: XR chest 2V DATE OF EXAM: 08/03/2019 COMPARISON: 07/12/2017 HISTORY: Weakness TECHNIQUE: FINDINGS: Heart and mediastinum are normal. Lungs are clear of consolidation. There is no heart failu re. There is small linear density in the right midlung. There are no hilar masses. Bony thorax is int act. There is no evidence of pleural effusion. IMPRESSION: Minimal scarring or subsegmental atelectasis right midlung unchanged. Normal heart.
[2019-08-03 18:32] LABS: Appearance,Urine Clear (Clear); Bilirubin,Urine Negative (Negative); Blood,Urine Negative (Negative); Color,Urine Light Yellow; Glucose,Urine (UA) Negative (Negative); Ketones,Urine Negative (Negative); Leukocyte Esterase,Urine Negative (Negative); Nitrite,Urine Negative (Negative); Protein,Urine Negative (Negative); Specific Gravity,Urine 1.007 (1.001-1.035); Urobilinogen,Urine <2.0 mg/dL (<2.0)
[2019-08-03] MEDS ORDERED: ONDANSETRON 4 MG/2 ML VIAL IVP PRN (18:36)
[2019-08-03] MEDS ORDERED: ACETAMINOPHEN TAB 325 MG TAB PO PRN (18:36)
[2019-08-03] MEDS ORDERED: LOPERAMIDE 2 MG CAP PO PRN (18:36)
[2019-08-03] MEDS ORDERED: NALOXONE 0.4 MG/ML 1 ML VIAL IV PRN (18:36)
[2019-08-03] MEDS ORDERED: SODIUM CHLORIDE 0.9% 1,000 ML IV SCH (18:45)
[2019-08-03] MEDS ORDERED: ASPIRIN 81 MG PO SCH (22:30)
[2019-08-03] MEDS ORDERED: LATANOPROST 0.005% OPHTH DROPS 2.5 ML BTL BOTH EYES SCH (23:00)
[2019-08-03] MEDS: DORZOLAMIDE-TIMOLOL 2.23%/0.68 10ML BTL BOTH EYES SCH (23:28)
[2019-08-04 07:57] VITALS: TEMP 98.1
[2019-08-04] MEDS: DORZOLAMIDE-TIMOLOL 2.23%/0.68 10ML BTL BOTH EYES SCH (08:40)
[2019-08-04] MEDS ORDERED: PANTOPRAZOLE 40 MG/10 ML VIAL IV SCH (09:00)
[2019-08-04] MEDS ORDERED: IRON PO SCH (09:00)
[2019-08-04] MEDS ORDERED: MULTIVITAMIN PO SCH (09:00)
[2019-08-04] MEDS ORDERED: MULTIVITAMINS, THERA 1 EACH TAB PO SCH (09:00)
[2019-08-04] MEDS ORDERED: ATORVASTATIN 80 MG TAB PO SCH (09:00)
[2019-08-04] MEDS ORDERED: CITALOPRAM HYDROBROMIDE 20 MG TAB PO SCH (09:00)
[2019-08-04] MEDS ORDERED: CLOPIDOGREL 75 MG TAB PO SCH (09:00)
[2019-08-04] MEDS ORDERED: FOLIC ACID PO SCH (09:00)
[2019-08-04] MEDS ORDERED: LEVOTHYROXINE PO SCH (09:00)
[2019-08-04] MEDS ORDERED: PSYLLIUM HUSK 100% 6 GM PACKET PO SCH (13:00)
[2019-08-04] MEDS ORDERED: ENOXAPARIN 40 MG/0.4 ML SYRINGE SQ SCH (13:15)
[2019-08-04] MEDS ORDERED: LACTATED RINGERS 1,000 ML IV SCH (13:15)
--- NOTE | 2019-08-04 16:15 | P.HPIM ---
History of Present Illness H&P Date: 08/04/19 Chief Complaint: Diarrhea Presenting complaint: Fever Interim history: Patient is a 71-year-old male with a past medical history of chronic venous stasis ulcers with recurrent cellulitis of the lower extremities, sleep apnea, hypertension, diabetes mellitus type 2 and chronic kidney disease stage IV who presented to the emergency department with complaints of worsening redness in his left leg. In the ER he underwent extensive evaluation. On arrival he had a temperature of 102.2 and was tachycardic at 115. He was found to have white blood cell count of 18.8, hemoglobin 10.7, hematocrit 31.9, platelets of 270. BUN 79, creatinine 3.21 up from his baseline of 20, CRP 58.3, and pro-calcitonin 0.47. Initial chest x-ray showed no active cardiopulmonary disease. Tib-fib x-ray showed no evidence of osteomyelitis. He was started on vancomycin secondary concern for left leg cellulitis. He received IV fluids and vancomycin. Blood cultures were drawn. Admitted with a diagnosis of sepsis. [place] to predominantly UTI and cystitis. On IV daptomycin and IV cefepime.IV daptomycin was then discontinued.urine culture positive for E. coli ESBL. Patient responded well to IV ertapenem. Had antibiotic associated diarrhea. Negative for C. diff. Today-tolerating diet. Still having some diarrhea. Otherwise feeling well. Tired. Review of systems: Was done for constitutional, cardiovascular, GI, pulmonary. relevant finding as above Active Medications Acetaminophen (Tylenol Tab) 1,000 mg PO Q6HR PRN PRN Reason: Fever>101 Last Admin: 07/30/19 16:22 Dose: 1,000 mg Documented by: Hydrocodone Bitart/Acetaminophen ([place] 10) 1 each PO TID PRN PRN Reason: Pain Allopurinol (Zyloprim) 100 mg PO DAILY [facility] Last Admin: 08/03/19 07:42 Dose: 100 mg Documented by: Amlodipine Besylate (Norvasc) 5 mg PO BID [facility] Last Admin: 08/03/19 20:11 Dose: 5 mg Documented by: Aspirin (Aspirin) 81 mg PO DAILY [facility] Last Admin: 08/03/19 07:42 Dose: 81 mg Documented by: Atorvastatin Calcium (Lipitor) 20 mg PO HS [facility] Last Admin: 08/03/19 20:11 Dose: 20 mg Documented by: Calcitriol (Rocaltrol) 0.25 mcg PO DAILY [facility] Last Admin: 08/03/19 07:43 Dose: 0.25 mcg Documented by: Gabapentin (Neurontin) 100 mg PO TID [facility] Last Admin: 08/03/19 15:42 Dose: 100 mg Documented by: Heparin Sodium (Porcine) (Heparin) 5,000 unit SQ Q8HR [facility] Last Admin: 08/03/19 15:42 Dose: 5,000 unit Documented by: Hydralazine HCl (Apresoline) 50 mg PO TID [facility] Last Admin: 08/03/19 15:42 Dose: 50 mg Documented by: Ertapenem 0.5 gm/ Sodium (Chloride) 50 mls @ 100 mls/hr IVPB DAILY [facility]; Protocol Last Admin: 08/03/19 07:42 Dose: 100 mls/hr Documented by: Insulin Aspart (Novolog) 0 unit SQ ACHS [facility]; Protocol Last Admin: 08/03/19 17:20 Dose: 3 unit Documented by: Insulin Detemir (Levemir) 30 unit SQ DAILY@0700 [facility] Last Admin: 08/03/19 07:39 Dose: 30 unit Documented by: Metoclopramide HCl (Reglan) 5 mg PO AC-TID PRN PRN Reason: Nausea Naloxone HCl (Narcan) 0.2 mg IV Q2M PRN PRN Reason: Opioid Reversal Ondansetron HCl (Zofran) 4 mg IVP Q6HR PRN PRN Reason: Nausea And Vomiting Last Admin: 08/02/19 20:44 Dose: 4 mg Documented by: Psyllium Hydrophilic Mucilloid (Metamucil) 6 gm PO BID [facility] Last Admin: 08/03/19 20:11 Dose: 6 gm Documented by: On examination: VITAL SIGNS: 97.9, 65, 16, 188/69, 95% room air GENERAL APPEARANCE: Laying in bed, comfortable HEENT: Normal external appearance of nose and ear. Oral cavity normal EYES: Pupils equal. Conjunctiva normal. NECK: JVD not raised. Mass not palpable. RESPIRATORY: Respiratory effort normal. Lungs clear to auscultation. CARDIOVASCULAR: First and second sounds normal. No edema. ABDOMEN: Soft. Liver and spleen not palpable. No tenderness. No mass palpable. PSYCHIATRY: Alert and oriented x3. Mood and affect normal. DERMATOLOGICAL: Left lower extremity redness/wound-improved INVESTIGATIONS, reviewed in the clinical context: Potassium 3.6 bun 62 creatinine 2.01 Previous testing White count 26.1, hemoglobin 9.2, platelets 199 BUNs 66, creatinine 2.99 UA positive for leukoesterase, WBC Urine culture-E. coli/ESBL Assessment: -Acute UTI with cystitis, from E. coli/ESBL causing's sepsis, POA-responding -Acute on chronicleft lower extremity cellulitis-improved -Acute antibiotic associated diarrhea -Morbid obesity BMI 43.0 -COPD -Diabetes mellitus type 2 -Essential hypertension -Primary osteoarthritis -Chronic kidney disease -Diabetic peripheral neuropathy -Chronic lower extremity wound for which [facility] -Obstructive sleep apnea uses CPAP -Chronic umbilical hernia -Mild cognitive impairment -Chronic gait dysfunction sometimes uses a walker otherwise mainly a chair -Significant nausea vomiting could be an element of gastroparesis.-improved Plan: Patient admitted a midline placed. Hopefully be discharged to [facility] tomorrow. Metamucil added for the diarrhea. Discussed with the patient. Check labs tomorrow. Past Medical History Past Medical History: CVA/TIA, Hyperlipidemia, Osteoarthritis (OA), Thyroid Disorder Additional Past Medical History / Comment(s): HX OF COLON POLYP, glaucoma, CVA 1997 and TIA 2011 History of Any Multi-Drug Resistant Organisms: None Reported Past Surgical History: Joint Replacement, Orthopedic Surgery Additional Past Surgical History / Comment(s): cyst removed left ovary, detached retina repair, artery in groin 99% blocked "cleaned out", sinus surgery 2001, bilat hip replacement 2005 and 2013, cataract surgery sarina, hx of sciatic nerve block Past Anesthesia/Blood Transfusion Reactions: No Reported Reaction Past Psychological History: Anxiety, Depression Smoking Status: Former smoker Past Alcohol Use History: None Reported Past Drug Use History: None Reported - Past Family History Brother(s) Family Medical History: Cancer Additional Family Medical History / Comment(s): pancreatic Sister(s) Family Medical History: Cancer, Myocardial Infarction ([place]) Additional Family Medical History / Comment(s): skin cancer and cervical cancer Father Family Medical History: Coronary Artery Disease (CAD) Medications and Allergies Home Medications Medication Instructions Recorded Confirmed Type ARIPiprazole [Abilify] 2 mg PO WE 11/25/13 08/03/19 History Philipp Cit/Mag/D3/Zn/Compensation Programs Manager/J Luis/Bor 1 tab PO DAILY 11/25/13 08/03/19 History [Citracal-Vit D + Magnesium Tab] Clopidogrel [Plavix] 75 mg PO DAILY 11/25/13 08/03/19 History Latanoprost Ophth [Xalatan 0.005%] 1 drops BOTH EYES HS 11/25/13 08/03/19 History Multivitamin/Iron/Folic Acid 1 tab PO DAILY 11/25/13 08/03/19 History [Centrum Complete Multivit Tab] Citalopram Hydrobromide [CeleXA] 40 mg PO DAILY 08/24/15 08/03/19 History Aspirin 81 mg PO HS 07/12/17 08/03/19 History Atorvastatin [Lipitor] 80 mg PO DAILY 06/11/18 08/03/19 History Dorzolamide-Timol 2.23%/0.68% 1 drop BOTH EYES BID 08/03/19 08/03/19 History [Cosopt] Levothyroxine (Unknown Dose) 1 tab PO DAILY 08/03/19 08/03/19 History Allergies Allergy/AdvReac Type Severity Reaction Status Date / Time No Known Allergies Allergy Verified 08/03/19 18:45 Physical Exam Vitals: Vital Signs Temp Pulse Pulse Resp BP BP Pulse Ox 08/04/19 08:00 57 L 12 08/04/19 07:56 98.1 F 57 L 12 134/75 97 08/04/19 04:30 97.8 F 55 L 20 112/67 08/03/19 19:55 98.0 F 50 L 18 138/60 98 08/03/19 19:00 98.1 F 49 L 20 141/67 99 08/03/19 18:58 98.3 F 48 L 20 130/61 08/03/19 18:00 49 L 20 138/65 99 08/03/19 17:06 47 L 16 131/77 99 08/03/19 16:32 47 L 08/03/19 16:07 98.5 F 63 18 126/71 98 Intake and Output 08/03/19 08/04/19 08/04/19 22:59 06:59 14:59 Other: Voiding Method Toilet Weight 108.862 kg Results CBC & Chem 7: 08/03/19 16:55 08/03/19 16:55 Labs: Abnormal Lab Results - Last 24 Hours (Table) 08/03/19 Range/Units 16:55 Glucose 100 H (74-99) mg/dL Thrombosis Risk Factor Assmnt - Choose All That Apply Each Risk Factor Represents 2 Points: Age 61-74 years Thrombosis Risk Factor Assessment Total Risk Factor Score: 2 Thrombosis Risk Factor Assessment Level: Low Risk
--- NOTE | 2019-08-04 16:20 | P.HPIM ---
History of Present Illness H&P Date: 08/04/19 Chief Complaint: Diarrhea History of presenting complaint: This is a pleasant 73-year-old patient of Dr. Dempsey. Chronic stable medical conditions include hyperlipidemia, osteoarthritis, hypothyroid anxiety depression. Patient states that she was treated for a UTI back on May 18. He sees antibiotics the name of which she does not remember. Started having diarrhea. Anywhere from 5-10 times a day. There is no blood in there. No abdominal pain. No fever or chills. Decreased appetite. Patient took an Imodium yesterday. To this morning when I saw the patient patient not had any further bowel movements. Does feel a bit tired. GI was consulted. Review of systems: GEN.: Tired EYES: None HEENT: None NECK: None RESPIRATORY: None CARDIOVASCULAR: None GASTROINTESTINAL: [As above GENITOURINARY: None MUSCULOSKELETAL: Joint pains LYMPHATICS: None HEMATOLOGICAL: None PSYCHIATRY: None NEUROLOGICAL: None Social history: Patient smoked a pack a day for 28 years stopped in 1993. No alcohol. Lives with her . Physical examination: VITAL SIGNS: 98.5, 63, 18, 126/71, 98% on room air GENERAL: BMI 37.6, laying in bed a bit tired. EYES: Pupils equal. Conjunctiva normal. HEENT: External appearance of nose and ears normal, oral cavity dry. NECK: JVD not raised; masses not palpable. HEART: First and second heart sounds are normal; no edema. LUNGS: Respiratory rate normal; clear to auscultation. ABDOMEN: Soft, nontender, liver spleen not palpable, no masses palpable. PSYCH: Alert and oriented x3; mood and affect normal. MUSCULAR skeletal: Evidence of OA especially in the hands NEUROLOGICAL: Cranial nerves grossly intact; no facial asymmetry, power and sensation grossly intact. LYMPHATICS: No lymph nodes palpable in the axilla and neck INVESTIGATIONS, reviewed in the clinical context: White count 7.3 hemoglobin 13.8 platelets 197 potassium 4.4 creatinine 0.78 ProBNP to 35 troponin I is less than 0.012 TSH 3.7-0 UA negative COVID-19 PCR-not detected EKG tracing personally reviewed by me-sinus bradycardia Chest x-ray film-personally reviewed by me possibly due to atelectasis Assessment: -This is a patient is having diarrhea anywhere from 5-10 times a day somewhat loose since May 18 since she went on antibiotics. His abdominal pain. No fever no chills. Does not appear to be infected. Appears to be more functional. -Clinical dehydration -Obesity BMI 37.6 -Anxiety depression otherwise specified Plan: Patient is put on clear liquids. IV fluids. Lovenox for DVT prophylaxis. Add Metamucil to thicken the bowels. GI was consulted. Care was discussed the question answered. Past Medical History Past Medical History: CVA/TIA, Hyperlipidemia, Osteoarthritis (OA), Thyroid Disorder Additional Past Medical History / Comment(s): HX OF COLON POLYP, glaucoma, CVA 1997 and TIA 2011 History of Any Multi-Drug Resistant Organisms: None Reported Past Surgical History: Joint Replacement, Orthopedic Surgery Additional Past Surgical History / Comment(s): cyst removed left ovary, detached retina repair, artery in groin 99% blocked "cleaned out", sinus surgery 2001, bilat hip replacement 2005 and 2013, cataract surgery , hx of sciatic nerve block Past Anesthesia/Blood Transfusion Reactions: No Reported Reaction Past Psychological History: Anxiety, Depression Smoking Status: Former smoker Past Alcohol Use History: None Reported Past Drug Use History: None Reported - Past Family History Brother(s) Family Medical History: Cancer Additional Family Medical History / Comment(s): pancreatic Sister(s) Family Medical History: Cancer, Myocardial Infarction ([place]) Additional Family Medical History / Comment(s): skin cancer and cervical cancer Father Family Medical History: Coronary Artery Disease (CAD) Medications and Allergies Home Medications Medication Instructions Recorded Confirmed Type ARIPiprazole [Abilify] 2 mg PO WE 11/25/13 08/03/19 History Philipp Cit/Mag/D3/Zn/Interface Designer/J Luis/Bor 1 tab PO DAILY 11/25/13 08/03/19 History [Citracal-Vit D + Magnesium Tab] Clopidogrel [Plavix] 75 mg PO DAILY 11/25/13 08/03/19 History Latanoprost Ophth [Xalatan 0.005%] 1 drops BOTH EYES HS 11/25/13 08/03/19 History Multivitamin/Iron/Folic Acid 1 tab PO DAILY 11/25/13 08/03/19 History [Centrum Complete Multivit Tab] Citalopram Hydrobromide [CeleXA] 40 mg PO DAILY 08/24/15 08/03/19 History Aspirin 81 mg PO HS 07/12/17 08/03/19 History Atorvastatin [Lipitor] 80 mg PO DAILY 06/11/18 08/03/19 History Dorzolamide-Timol 2.23%/0.68% 1 drop BOTH EYES BID 08/03/19 08/03/19 History [Cosopt] Levothyroxine (Unknown Dose) 1 tab PO DAILY 08/03/19 08/03/19 History Allergies Allergy/AdvReac Type Severity Reaction Status Date / Time No Known Allergies Allergy Verified 08/03/19 18:45 Physical Exam Vitals: Vital Signs Temp Pulse Pulse Resp BP BP Pulse Ox 08/04/19 12:00 57 L 12 08/04/19 08:00 57 L 12 08/04/19 07:56 98.1 F 57 L 12 134/75 97 08/04/19 04:30 97.8 F 55 L 20 112/67 08/03/19 19:55 98.0 F 50 L 18 138/60 98 08/03/19 19:00 98.1 F 49 L 20 141/67 99 08/03/19 18:58 98.3 F 48 L 20 130/61 08/03/19 18:00 49 L 20 138/65 99 08/03/19 17:06 47 L 16 131/77 99 08/03/19 16:32 47 L Intake and Output 08/04/19 08/04/19 08/04/19 06:59 14:59 22:59 Other: Voiding Method Toilet # Voids 3 Results CBC & Chem 7: 08/03/19 16:55 08/03/19 16:55 Labs: Abnormal Lab Results - Last 24 Hours (Table) 08/03/19 Range/Units 16:55 Glucose 100 H (74-99) mg/dL Thrombosis Risk Factor Assmnt - Choose All That Apply Each Risk Factor Represents 2 Points: Age 61-74 years Thrombosis Risk Factor Assessment Total Risk Factor Score: 2 Thrombosis Risk Factor Assessment Level: Low Risk
[2019-08-04 16:33] VITALS: BP 126/74; PULSE 56; RESP 14
--- NOTE | 2019-08-04 20:33 | P.DS ---
Providers Date of admission: 08/03/19 18:38 Expected date of discharge: 08/04/19 Attending physician: Sunny Montano Consults: 08/03/19 18:34 Consult Physician Urgent Consulting Provider: Brittnee Weiss Consult Reason/Comments: persistent diarrhea Do you want consulting provider notified?: Yes Primary care physician: [facility] Course: Chief Complaint: Diarrhea History of presenting complaint: This is a pleasant 73-year-old patient of Dr. Dempsey. Chronic stable medical conditions include hyperlipidemia, osteoarthritis, hypothyroid anxiety depression. Patient states that she was treated for a UTI back on May 18. He sees antibiotics the name of which she does not remember. Started having diarrhea. Anywhere from 5-10 times a day. There is no blood in there. No abdominal pain. No fever or chills. Decreased appetite. Patient took an Imodium yesterday. To this morning when I saw the patient patient not had any further bowel movements. Does feel a bit tired. GI was consulted. Feeling well. No further diarrhea. Imodium to be used when necessary and Metamucil added. Patient is counseled. Seen by GI. Consultation: GI Physical examination: VITAL SIGNS: 98.1, 56, 14, 126/74, 95% on room air GENERAL: BMI 37.6, comfortable EYES: Pupils equal. Conjunctiva normal. HEENT: External appearance of nose and ears normal, oral cavity dry. NECK: JVD not raised; masses not palpable. HEART: First and second heart sounds are normal; no edema. LUNGS: Respiratory rate normal; clear to auscultation. ABDOMEN: Soft, nontender, liver spleen not palpable, no masses palpable. PSYCH: Alert and oriented x3; mood and affect normal. MUSCULAR skeletal: Evidence of OA especially in the hands INVESTIGATIONS, reviewed in the clinical context: White count 7.3 hemoglobin 13.8 platelets 197 potassium 4.4 creatinine 0.78 ProBNP to 35 troponin I is less than 0.012 TSH 3.7-0 UA negative COVID-19 PCR-not detected EKG tracing personally reviewed by me-sinus bradycardia Chest x-ray film-personally reviewed by me possibly due to atelectasis Assessment: -This is a patient is having diarrhea anywhere from 5-10 times a day somewhat loose since May 18 since she went on antibiotics. His abdominal pain. No fever no chills. Does not appear to be infected. Appears to be more functional.-Improved -Clinical dehydration -Obesity BMI 37.6 -Anxiety depression otherwise specified Disposition: Home Patient Condition at Discharge: Stable Plan - Discharge Summary Discharge Rx Participant: No New Discharge Prescriptions: New Loperamide [Imodium] 2 mg PO Q6H PRN cap PRN Reason: Loose Stool Melatonin 3 mg PO HS tablet Psyllium [place] 100% [Metamucil Packet] 6 gm PO BID #30 packet Continue Clopidogrel [Plavix] 75 mg PO DAILY Philipp Cit/Mag/D3/Zn/Gauge Maker/J Luis/Bor [Citracal-Vit D + Magnesium Tab] 1 tab PO DAILY Multivitamin/Iron/Folic Acid [Centrum Complete Multivit Tab] 1 tab PO DAILY Latanoprost Ophth [Xalatan 0.005%] 1 drops BOTH EYES HS ARIPiprazole [Abilify] 2 mg PO WE Citalopram Hydrobromide [CeleXA] 40 mg PO DAILY Aspirin 81 mg PO HS Atorvastatin [Lipitor] 80 mg PO DAILY Dorzolamide-Timol 2.23%/0.68% [Cosopt] 1 drop BOTH EYES BID Levothyroxine (Unknown Dose) 1 tab PO DAILY Discharge Medication List ARIPiprazole [Abilify] 2 mg PO WE 11/25/13 [History] Philipp Cit/Mag/D3/Zn/Gauge Maker/J Luis/Bor [Citracal-Vit D + Magnesium Tab] 1 tab PO DAILY 11/25/13 [History] Clopidogrel [Plavix] 75 mg PO DAILY 11/25/13 [History] Latanoprost Ophth [Xalatan 0.005%] 1 drops BOTH EYES HS 11/25/13 [History] Multivitamin/Iron/Folic Acid [Centrum Complete Multivit Tab] 1 tab PO DAILY 11/25/13 [History] Citalopram Hydrobromide [CeleXA] 40 mg PO DAILY 08/24/15 [History] Aspirin 81 mg PO HS 07/12/17 [History] Atorvastatin [Lipitor] 80 mg PO DAILY 06/11/18 [History] Dorzolamide-Timol 2.23%/0.68% [Cosopt] 1 drop BOTH EYES BID 08/03/19 [History] Levothyroxine (Unknown Dose) 1 tab PO DAILY 08/03/19 [History] Loperamide [Imodium] 2 mg PO Q6H PRN cap 08/04/19 [Rx] Melatonin 3 mg PO HS tablet 08/04/19 [Rx] Psyllium Husk 100% [Metamucil Packet] 6 gm PO BID #30 packet 08/04/19 [Rx] Follow up Appointment(s)/Referral(s): Rusty Dempsey DO [Primary Care Provider] - 1-2 days Brittnee Weiss MD [STAFF PHYSICIAN] - 2 Weeks Discharge Disposition: HOME SELF-CARE
[2019-08-04] MEDS ORDERED: MELATONIN 3 MG TABLET PO SCH (21:00)
--- NOTE | 2019-08-05 21:07 | P.CONS ---
History of Present Illness - Reason for Consult Consult date: 08/04/19 Diarrhea Requesting physician: Sunny Montano - Chief Complaint Diarrhea - History of Present Illness 73-year-old female with a medical history significant for hyperlipidemia, prior CVA/TIA, hypothyroidism, colon polyps and osteoarthritis who presents to the hospital due to diarrhea. The patient reports persistent diarrhea since May of this year over 2 months in duration. She reports frequent loose bowel movements with no blood or black tarry stool. The patient presented for further evaluation due to dehydration. She did have a colonoscopy performed in 2019 sig sara for polypectomy with a poor prep and recommendation for repeat colonoscopy in 3 years. Patient had a recent history of urinary tract infection treated with antibiotic therapy subsequently she developed Clostridium difficile colitis. This was treated with further antibiotic therapy. On current presentation testing for Clostridium difficile was negative. Patient was given antidiarrheal and is had no further bowel movements since that time. Review of Systems REVIEW OF SYSTEMS: CONSTITUTIONAL: Denies any fevers, chills, weight change or fatigue. CARDIOVASCULAR: Denies any chest pain, palpitations high or low blood pressures RESPIRATORY: Denies any shortness of breath, hemoptysis or cough. GENITOURINARY: No dysuria or hematuria. MUSCULOSKELETAL: No weakness reported. SKIN: Denies any new rashes or lesions, jaundice or pallor. PSYCHIATRIC: Denies any depression or anxiety. NEUROLOGY: Denies headache, denies any new focal deficits. EARS/NOSE/THROAT: No recent hearing change, congestion, nasal discharge or sore throat. EYES: No pain in eyes, discharge or change in vision. GASTROINTESTINAL: As per HPI. Past Medical History Past Medical History: CVA/TIA, Hyperlipidemia, Osteoarthritis (OA), Thyroid Disorder Additional Past Medical History / Comment(s): HX OF COLON POLYP, glaucoma, CVA 1997 and TIA 2011 History of Any Multi-Drug Resistant Organisms: None Reported Past Surgical History: Joint Replacement, Orthopedic Surgery Additional Past Surgical History / Comment(s): cyst removed left ovary, detached retina repair, artery in groin 99% blocked "cleaned out", sinus surgery 2001, bilat hip replacement 2005 and 2013, cataract surgery sarina, hx of sciatic nerve block Past Anesthesia/Blood Transfusion Reactions: No Reported Reaction Past Psychological History: Anxiety, Depression Smoking Status: Former smoker Past Alcohol Use History: None Reported Past Drug Use History: None Reported - Past Family History Brother(s) Family Medical History: Cancer Additional Family Medical History / Comment(s): pancreatic Sister(s) Family Medical History: Cancer, Myocardial Infarction ([place]) Additional Family Medical History / Comment(s): skin cancer and cervical cancer Father Family Medical History: Coronary Artery Disease (CAD) Medications and Allergies Home Medications Medication Instructions Recorded Confirmed Type ARIPiprazole [Abilify] 2 mg PO WE 11/25/13 08/03/19 History Philipp Cit/Mag/D3/Zn/Preprint Analyst/J Luis/Bor 1 tab PO DAILY 11/25/13 08/03/19 History [Citracal-Vit D + Magnesium Tab] Clopidogrel [Plavix] 75 mg PO DAILY 11/25/13 08/03/19 History Latanoprost Ophth [Xalatan 0.005%] 1 drops BOTH EYES HS 11/25/13 08/03/19 History Multivitamin/Iron/Folic Acid 1 tab PO DAILY 11/25/13 08/03/19 History [Centrum Complete Multivit Tab] Citalopram Hydrobromide [CeleXA] 40 mg PO DAILY 08/24/15 08/03/19 History Aspirin 81 mg PO HS 07/12/17 08/03/19 History Atorvastatin [Lipitor] 80 mg PO DAILY 06/11/18 08/03/19 History Dorzolamide-Timol 2.23%/0.68% 1 drop BOTH EYES BID 08/03/19 08/03/19 History [Cosopt] Levothyroxine (Unknown Dose) 1 tab PO DAILY 08/03/19 08/03/19 History Loperamide [Imodium] 2 mg PO Q6H PRN cap 08/04/19 Rx Melatonin 3 mg PO HS tablet 08/04/19 Rx Psyllium Husk 100% [Metamucil 6 gm PO BID #30 packet 08/04/19 Rx Packet] Allergies Allergy/AdvReac Type Severity Reaction Status Date / Time No Known Allergies Allergy Verified 08/03/19 18:45 Physical Exam Vitals: Vital Signs Temp Pulse Pulse Resp BP BP Pulse Ox 08/04/19 12:00 57 L 12 08/04/19 08:00 57 L 12 08/04/19 07:56 98.1 F 57 L 12 134/75 97 08/04/19 04:30 97.8 F 55 L 20 112/67 08/03/19 19:55 98.0 F 50 L 18 138/60 98 08/03/19 19:00 98.1 F 49 L 20 141/67 99 08/03/19 18:58 98.3 F 48 L 20 130/61 08/03/19 18:00 49 L 20 138/65 99 08/03/19 17:06 47 L 16 131/77 99 08/03/19 16:32 47 L 08/03/19 16:07 98.5 F 63 18 126/71 98 Intake and Output 08/04/19 08/04/19 08/04/19 06:59 14:59 22:59 Other: Voiding Method Toilet # Voids 3 On physical examination, patient appears comfortable in no apparent distress. HEAD: Normocephalic, atraumatic. EYES: No scleral icterus. No conjunctival injection. MOUTH: No lesions, tongue midline. NECK: Trachea midline, no gross abnormalities. CHEST: Clear to auscultation with no wheezing or rhonchi appreciated. HEART: S1-S2 appreciated. ABDOMEN: Soft, obese. Bowel sounds are positive. No organomegaly. No guarding or rigidity. EXTREMITIES: No pedal edema. SKIN: No rashes, no jaundice. NEUROLOGIC: Alert and oriented x3. No focal deficits. Results CBC & Chem 7: 08/03/19 16:55 08/03/19 16:55 Labs: Abnormal Lab Results - Last 24 Hours (Table) 08/03/19 Range/Units 16:55 Glucose 100 H (74-99) mg/dL Chest x-ray: report reviewed (Minimal scarring and atelectasis of right lung base on chest x-ray) Assessment and Plan (1) Diarrhea Narrative/Plan: 73-year-old presenting with diarrhea of over 2 months duration. Previously treated with antibiotic therapy patient developed C. diff colitis per her report and was treated with further antibiotics. On current presentation testing for C. diff negative. She has responded to antidiarrheals. Colonoscopy in 2019 significant for polypectomy with poor prep. Denies any abdominal pain. No further diarrhea since presentation. Unknown etiology, may be secondary to functional bowel disorder, recurrent C. diff colitis, dietary intolerances or other etiology. Status: Acute Code(s): R19.7 - DIARRHEA, UNSPECIFIED SNOMED Code(s): 11350920 (2) History of colon polyps Status: Acute Code(s): Z86.010 - PERSONAL HISTORY OF COLONIC POLYPS SNOMED Code(s): 689051252 Plan: Supportive care Okay for diet, low lactose, low fiber Continue to monitor stool output Continue antidiarrheals as needed If further diarrhea would recommend testing for Clostridium difficile with PCR as well as further stool studies If diarrhea recurs patient should follow-up with GI with consideration for repeat colonoscopy with consideration for random biopsies to rule out microscopic colitis Thank you for allowing us to participate in the care of the patient
[2019-08-06] MEDS ORDERED: ARIPiprazole 2 MG TAB PO SCH (09:00)
== END 2019-08-04 17:07 | disposition home or self-care (01) ==
LOC: EC 16:00 → 1SOBS 18:38
PROVIDERS: ADMIT Hospitalist; ATTEND Hospitalist
DX: R19.7 Diarrhea, unspecified (principal); E86.0 Dehydration; R00.1 Bradycardia, unspecified; E03.9 Hypothyroidism, unspecified; M19.042 Primary osteoarthritis, left hand; M19.041 Primary osteoarthritis, right hand; E78.5 Hyperlipidemia, unspecified; H40.9 Unspecified glaucoma; E66.9 Obesity, unspecified; Z68.37 Body mass index [BMI] 37.0-37.9, adult; F41.8 Other specified anxiety disorders; Z79.02 Long term (current) use of antithrombotics/antiplatelets; Z79.899 Other long term (current) drug therapy; Z79.82 Long term (current) use of aspirin; Z86.73 Personal history of transient ischemic attack (TIA), and cerebral infarction without residual deficits; Z87.19 Personal history of other diseases of the digestive system; Z96.643 Presence of artificial hip joint, bilateral; Z87.440 Personal history of urinary (tract) infections; Z87.891 Personal history of nicotine dependence; Z82.49 Family history of ischemic heart disease and other diseases of the circulatory system; Z80.49 Family history of malignant neoplasm of other genital organs; Z80.8 Family history of malignant neoplasm of other organs or systems; Z20.828 Contact with and (suspected) exposure to other viral communicable diseases
CPT/HCPCS: 96372; 96374; 96361; 99285; 36415; 93005; 83880; 80053; 84443; 83605; 83735; 84484; 85025; 85610; 85730; 81003; 71046; G0378 ×2; U0003; J1650; C9113

== ENCOUNTER 2019-09-02 22:14 | Emergency (ER) | payer MEDICARE, OTHER ==
[2019-09-02 22:22] VITALS: TEMP 98.1
[2019-09-02 23:43] LABS: Basophils # (A) 0.1 k/uL (0-0.2); Basophils % (A) 1 %; Eosinophils # (A) 0.5 k/uL (0-0.7); Eosinophils % (A) 5 %; HCT 45.7 % (34.0-46.0); HGB 14.8 gm/dL (11.4-16.0); Lymphocytes # (A) 2.3 k/uL (1.0-4.8); Lymphocytes % (A) 26 %; MCH 29.9 pg (25.0-35.0); MCHC 32.4 g/dL (31.0-37.0); MCV 92.2 fL (80.0-100.0); Mean Platelet Volume 8.9; Monocytes # (A) 0.9 k/uL (0-1.0); Monocytes % (A) 10 %; Neutrophils # (A) 4.9 k/uL (1.3-7.7); Neutrophils % (A) 55 %; Platelet Count 214 k/uL (150-450); RBC 4.96 m/uL (3.80-5.40); RDW 13.8 % (11.5-15.5)
[2019-09-02 23:53] LABS: Albumin 4.6 g/dL (3.5-5.0); Calcium 9.9 mg/dL (8.4-10.2); Potassium 3.7 mmol/L (3.5-5.1); Total Bilirubin 1.4 mg/dL (0.2-1.3); Total Protein 8.1 g/dL (6.3-8.2)
--- NOTE | 2019-09-02 23:58 | XR ---
EXAMINATION TYPE: XR KUB DATE OF EXAM: 09/02/2019 COMPARISON: NONE HISTORY: Diarrhea. TECHNIQUE: 2 views upright FINDINGS: There is no sign of intestinal obstruction or pneumoperitoneum. Fecal pattern is normal. Th ere is no evidence of a mass. There are no pathologic calcifications over the kidneys. There are bila teral hip prosthesis. Lung bases are clear. There are calcifications over the right upper quadrant th at could be calcified gallstones. IMPRESSION: Nonacute abdomen. Possible calcified gallstones.
[2019-09-03 01:17] VITALS: BP 125/60; PULSE 64; RESP 18
--- NOTE | 2019-09-03 02:36 | ED ---
General Adult HPI - General Chief complaint: Nausea/Vomiting/Diarrhea Stated complaint: Rash,Diarrhea Time Seen by Provider: 09/02/19 22:46 Source: patient, RN notes reviewed, old records reviewed, Caregiver Mode of arrival: ambulatory Limitations: no limitations - History of Present Illness Initial comments: 73-year-old female patient presents ED chief complaint diarrhea. Patient reports that she has loose stools that she eats. Reports has been ongoing for months. Denies any pain. Denies any other complaints. Systemic: Pt denies fatigue, fever/chills, rash. Pt denies weakness, night sweats, weight loss. Neuro: Pt denies headache, visual disturbances, syncope or pre-syncope. HEENT: Pt denies ocular discharge or irritation, otalgia, rhinorrhea, pharyngitis or notable lymphadenopathy. Cardiopulmonary: Pt denies chest pain, SOB, heart palpitations, dyspnea on exertion. Abdominal/GI: Pt denies abdominal pain, n/v. : Pt denies dysuria, burning w/ urination, frequency/urgency. Denies new onset urinary or bowel incontinence. MSK: Pt denies myalgia, loss of strength or function in extremities. Neuro: Pt denies new onset weakness, paresthesias. - Related Data Home Medications Medication Instructions Recorded Confirmed ARIPiprazole [Abilify] 2 mg PO WE 11/25/13 08/03/19 Philipp Cit/Mag/D3/Zn/Construction Framer/J Luis/Bor 1 tab PO DAILY 11/25/13 08/03/19 [Citracal-Vit D + Magnesium Tab] Clopidogrel [Plavix] 75 mg PO DAILY 11/25/13 08/03/19 Latanoprost Ophth [Xalatan 0.005%] 1 drops BOTH EYES HS 11/25/13 08/03/19 Multivitamin/Iron/Folic Acid 1 tab PO DAILY 11/25/13 08/03/19 [Centrum Complete Multivit Tab] Citalopram Hydrobromide [CeleXA] 40 mg PO DAILY 08/24/15 08/03/19 Aspirin 81 mg PO HS 07/12/17 08/03/19 Atorvastatin [Lipitor] 80 mg PO DAILY 06/11/18 08/03/19 Dorzolamide-Timol 2.23%/0.68% 1 drop BOTH EYES BID 08/03/19 08/03/19 [Cosopt] Levothyroxine (Unknown Dose) 1 tab PO DAILY 08/03/19 08/03/19 Previous Rx's Medication Instructions Recorded Loperamide [Imodium] 2 mg PO Q6H PRN cap 08/04/19 Melatonin 3 mg PO HS tablet 08/04/19 Psyllium Husk 100% [Metamucil 6 gm PO BID #30 packet 08/04/19 Packet] Allergies Allergy/AdvReac Type Severity Reaction Status Date / Time No Known Allergies Allergy Verified 09/02/19 22:21 Review of Systems ROS Statement: Those systems with pertinent positive or pertinent negative responses have been documented in the HPI. ROS Other: All systems not noted in ROS Statement are negative. Past Medical History Past Medical History: CVA/TIA, Hyperlipidemia, Osteoarthritis (OA), Thyroid Disorder Additional Past Medical History / Comment(s): HX OF COLON POLYP, glaucoma, CVA 1997 and TIA 2011 History of Any Multi-Drug Resistant Organisms: None Reported Past Surgical History: Joint Replacement, Orthopedic Surgery Additional Past Surgical History / Comment(s): cyst removed left ovary, detached retina repair, artery in groin 99% blocked "cleaned out", sinus surgery 2001, bilat hip replacement 2005 and 2013, cataract surgery sarina, hx of sciatic nerve block Past Anesthesia/Blood Transfusion Reactions: No Reported Reaction Past Psychological History: Anxiety, Depression Smoking Status: Former smoker Past Alcohol Use History: None Reported Past Drug Use History: None Reported - Past Family History Brother(s) Family Medical History: Cancer Additional Family Medical History / Comment(s): pancreatic Sister(s) Family Medical History: Cancer, Myocardial Infarction ([place]) Additional Family Medical History / Comment(s): skin cancer and cervical cancer Father Family Medical History: Coronary Artery Disease (CAD) General Exam - General Exam Comments Initial Comments: Constitutional: NAD, AOX3, Pt has pleasant affect. HEENT: NC/AT, trachea midline, neck supple. External ears appear normal, without discharge. Mucous membranes moist. EOM intact. There is no scleral icterus. No pallor noted. Cardiopulmonary: RRR, no murmurs, rubs or gallops, no JVD noted. Lungs CTAB in anterior and posterior ruiz. No peripheral edema. Abdominal exam: Abdomen soft and non-distended. Abdomen non-tender to palpation in all 4 quadrants. Bowel sounds active in LLQ. No hepatosplenomegaly. No ecchymosis Neuro: CN II-XII grossly intact. No nuchal rigidity. No raccon eyes, no nguyen sign, no hemotympanum. No cervical spinal tenderness. MSK: No posterior calf tenderness bilaterally, homans sign negative bilaterally. Posterior tibialis and radial pulse +2 bilaterally. Sensation intact in upper and lower extremities. Full active ROM in upper and lower extremities. Limitations: no limitations Course Vital Signs 09/02/19 09/03/19 09/03/19 22:19 00:00 01:00 Temperature 98.1 F Pulse Rate 82 77 64 Respiratory 16 18 18 Rate Blood Pressure 139/62 128/61 125/60 O2 Sat by Pulse 98 99 99 Oximetry Medical Decision Making - Medical Decision Making 73-year-old female patient presents to ED chief complaint diarrhea. Denies any abdominal pain. Patient vital signs are stable, afebrile. Physical exam displayed nontender abdomen. Laboratory investigations are non-impressive. KUB displayed possible calcified gallstone nontender abdomen. Patient not able to provide a stool sample. Patient also reports that she has a rash. This reported rash is from her picking at her skin. No signs of infection are noted. Patient discharged with outpatient follow-up with primary care provider and GI consult. Case discussed with Dr. De La Cruz. - Lab Data Result diagrams: 09/02/19 22:46 09/02/19 23:33 Lab Results 09/02/19 09/02/19 Range/Units 22:46 23:33 WBC 9.0 (3.8-10.6) k/uL RBC 4.96 (3.80-5.40) m/uL Hgb 14.8 (11.4-16.0) gm/dL Hct 45.7 (34.0-46.0) % MCV 92.2 (80.0-100.0) fL MCH 29.9 (25.0-35.0) pg MCHC 32.4 (31.0-37.0) g/dL RDW 13.8 (11.5-15.5) % Plt Count 214 (150-450) k/uL Neutrophils % 55 % Lymphocytes % 26 % Monocytes % 10 % Eosinophils % 5 % Basophils % 1 % Neutrophils # 4.9 (1.3-7.7) k/uL Lymphocytes # 2.3 (1.0-4.8) k/uL Monocytes # 0.9 (0-1.0) k/uL Eosinophils # 0.5 (0-0.7) k/uL Basophils # 0.1 (0-0.2) k/uL Sodium 136 L (137-145) mmol/L Potassium 3.7 (3.5-5.1) mmol/L Chloride 103 (98-107) mmol/L Carbon Dioxide 21 L (22-30) mmol/L Anion Gap 12 mmol/L BUN 10 (7-17) mg/dL Creatinine 0.79 (0.52-1.04) mg/dL Est GFR (CKD-EPI)AfAm 88 (>60 ml/min/1.73 sqM) Est GFR (CKD-EPI)NonAf 76 (>60 ml/min/1.73 sqM) Glucose 98 (74-99) mg/dL Calcium 9.9 (8.4-10.2) mg/dL Total Bilirubin 1.4 H (0.2-1.3) mg/dL AST 34 (14-36) U/L ALT 20 (4-34) U/L Alkaline Phosphatase 99 (38-126) U/L Total Protein 8.1 (6.3-8.2) g/dL Albumin 4.6 (3.5-5.0) g/dL Disposition Clinical Impression: Diarrhea Disposition: HOME SELF-CARE Condition: Stable Instructions (If sedation given, give patient instructions): Acute Diarrhea (ED) Additional Instructions: Follow up with PCP tomorrow. Follow up with GI tomorrow. Return to ED if condition worsens. Is patient prescribed a controlled substance at d/c from ED?: No Referrals: Rusty Dempsey DO [Primary Care Provider] - 1-2 days Brittnee Weiss MD [STAFF PHYSICIAN] - 1-2 days
== END 2019-09-03 03:27 | disposition home or self-care (01) ==
LOC: EC 22:14
DX: R19.7 Diarrhea, unspecified (principal); R21 Rash and other nonspecific skin eruption; F41.9 Anxiety disorder, unspecified; F32.9 Major depressive disorder, single episode, unspecified; E78.5 Hyperlipidemia, unspecified; I10 Essential (primary) hypertension; M19.90 Unspecified osteoarthritis, unspecified site; E07.9 Disorder of thyroid, unspecified; Z79.890 Hormone replacement therapy; Z79.02 Long term (current) use of antithrombotics/antiplatelets; Z79.82 Long term (current) use of aspirin; Z79.899 Other long term (current) drug therapy; Z86.73 Personal history of transient ischemic attack (TIA), and cerebral infarction without residual deficits; Z87.891 Personal history of nicotine dependence; Z96.643 Presence of artificial hip joint, bilateral; Z98.42 Cataract extraction status, left eye; Z98.41 Cataract extraction status, right eye
CPT/HCPCS: 36415; 74018; 80053; 85025; 99284

== ENCOUNTER 2020-01-26 07:47 | Day surgery (SDC) | payer MEDICARE, OTHER ==
[2020-01-22 10:05] VITALS: BMI 30.5
[~2020-01-26 07:47] MED LIST changes: -LIDOCAINE 1% 20 ML VIAL (10MG/ML) FOR IV START INTRADERMA PRN
[2020-01-26 08:19] VITALS: TEMP 98.1
[2020-01-26] MEDS ORDERED: LIDOCAINE 1% (10MG/ML) FOR IV START SQ ONE (08:28)
[2020-01-26] MEDS ORDERED: PROPOFOL 10 MG/ML 20 ML VIAL IV ONE (08:41)
[2020-01-26] MEDS ORDERED: GLYCOPYRROLATE 0.2 MG/ML 2 ML VIAL ONE (08:41)
[2020-01-26] MEDS ORDERED: ePHEDrine SULFATE/0.9% NACL/PF 50 MG/5 ML SYRINGE IV ONE (08:41)
[2020-01-26] MEDS ORDERED: LIDOCAINE 1% INJ 10MG/ML (20 ML MDV) ONE (08:41)
--- NOTE | 2020-01-26 09:33 | P.PCN ---
Date of Procedure: 01/26/20 Description of Procedure: Brief history: Patient is a 74-year-old female presenting for EGD and colonoscopy for evaluation of other specified abnormal immunologic findings in serum and noninfective gastroenteritis and colitis. She reports chronic episodes of diarrhea occurring since earlier in the year. No signs or symptoms of GI bleeding. Procedure performed: Esophagogastroduodenoscopy with biopsy Colonoscopy with polypectomy Estimated blood loss: Minimal. Preoperative diagnosis: Other specified abnormal immunologic finding in the serum, noninfective gastroenteritis and colitis, diarrhea. Anesthesia: MAC Procedure: After informed consent was obtained from the patient was brought into the endoscopy unit and IV sedation was administered by anesthesia under continuous monitoring. Initially upper endoscopy was done. The Olympus GF 190 video endoscope was inserted into the mouth and esophagus intubated without any difficulty and was gradually advanced into the stomach and duodenum and carefully examined. The bulb and second part of the duodenum appeared normal, with biopsies taken to rule out celiac sprue. The scope was then withdrawn into the stomach adequately insufflated with air and upon careful examination the antrum and body, cardia and fundus appeared normal, with mild scattered erythema suggestive of mild gastritis and with biopsies of antrum and body taken. The scope was then withdrawn into the esophagus. The GE junction was located at 38 cm to the incisors and biopsies. It appeared regular with no erythema erosions or ulcerations. Rest of the esophagus appeared normal. Patient tolerated the procedure well. At this time the patient continued to remain sedation. Initial digital rectal examination was normal. Olympus CF 190 video colonoscope was then inserted into the rectum and gradually advanced to the cecum without any difficulty. Careful examination was performed as the scope was gradually being withdrawn. The prep was excellent. The cecum, ascending colon, transverse colon, descending colon, sigmoid colon and rectum appeared normal. 3 sessile polyps measuring 4-5 mm in size removed from the cecum and sigmoid colon and rectum with cold snare polypectomy. 2 diminutive polyps measuring 2-3 mm in size removed from the transverse colon and descending colon with cold forcep polypectomy. Random biopsies taken of the right and left colon in the setting of altered bowel function. Retroflexion was performed in the rectum and no lesions were noted. Patient tolerated the procedure well. Impression: 1. Mild gastritis. Biopsies of the duodenum, antrum and body and GE junction. 2. 3 polyps removed with cold snare polypectomy from the cecum, sigmoid colon and rectum. 2 diminutive polyps removed with cold forcep polypectomy from the transverse colon and descending colon. Random biopsies taken of the right and left colon in the setting of altered bowel function and diarrhea. Recommendations: Findings of this examination were discussed with the patient as well as her . Okay to resume diet. Okay to resume medication. Recommendation is for a gluten-free diet in the setting of positive immunologic testing for celiac disease. Await pathology from biopsies and polypectomy. Follow-up in GI clinic as scheduled. Recommend repeat colonoscopy in 3 years for high risk colon polyps.
[2020-01-26 09:37] VITALS: RESP 16
[2020-01-26 09:48] VITALS: BP 100/53; PULSE 58
== END 2020-01-26 10:17 | disposition home or self-care (01) ==
LOC: ORWHC2ENDO 07:47
PROVIDERS: ATTEND Internal Medicine
DX: D12.0 Benign neoplasm of cecum (principal); D12.3 Benign neoplasm of transverse colon; K63.5 Polyp of colon; D12.8 Benign neoplasm of rectum; K29.50 Unspecified chronic gastritis without bleeding; K21.00 Gastro-esophageal reflux disease with esophagitis, without bleeding; I69.354 Hemiplegia and hemiparesis following cerebral infarction affecting left non-dominant side; E78.5 Hyperlipidemia, unspecified; E07.9 Disorder of thyroid, unspecified; Z87.891 Personal history of nicotine dependence; Z79.890 Hormone replacement therapy; Z79.02 Long term (current) use of antithrombotics/antiplatelets; Z79.82 Long term (current) use of aspirin; Z79.899 Other long term (current) drug therapy; Z98.41 Cataract extraction status, right eye; Z98.42 Cataract extraction status, left eye; Z98.890 Other specified postprocedural states
CPT/HCPCS: 88305; 45380; 45385; 43239; J2001; J2704

== ENCOUNTER 2020-02-29 13:25 | Emergency (ER) | payer MEDICARE, OTHER ==
[2020-02-29 13:30] VITALS: RESP 16; TEMP 97.9
[2020-02-29 14:24] LABS: Basophils # (A) 0.1 k/uL (0-0.2); Basophils % (A) 1 %; Eosinophils # (A) 0.3 k/uL (0-0.7); Eosinophils % (A) 5 %; HCT 42.3 % (34.0-46.0); HGB 14.1 gm/dL (11.4-16.0); Lymphocytes # (A) 1.5 k/uL (1.0-4.8); Lymphocytes % (A) 20 %; MCH 30.7 pg (25.0-35.0); MCHC 33.4 g/dL (31.0-37.0); MCV 92.2 fL (80.0-100.0); Mean Platelet Volume 7.5; Monocytes # (A) 0.5 k/uL (0-1.0); Monocytes % (A) 7 %; Neutrophils # (A) 4.8 k/uL (1.3-7.7); Neutrophils % (A) 65 %; Platelet Count 184 k/uL (150-450); RBC 4.58 m/uL (3.80-5.40); RDW 13.1 % (11.5-15.5); WBC 7.3 k/uL (3.8-10.6)
[2020-02-29 14:35] LABS: Albumin 3.8 g/dL (3.5-5.0); Calcium 9.5 mg/dL (8.4-10.2); Potassium 4.2 mmol/L (3.5-5.1); Total Bilirubin 1.4 mg/dL (0.2-1.3); Total Protein 6.9 g/dL (6.3-8.2)
--- NOTE | 2020-02-29 14:36 | ED ---
General Adult HPI - General Chief complaint: Nausea/Vomiting/Diarrhea Stated complaint: GI Bleed Time Seen by Provider: 02/29/20 13:45 Source: patient, EMS, RN notes reviewed, old records reviewed Mode of arrival: EMS Limitations: no limitations - History of Present Illness Initial comments: 74-year-old female patient to ED for evaluation. Patient reports that she has had nonstop diarrhea for the last 9 months. She has been followed by GI. She reports she has some waxing and waning generalized abdominal discomfort. Patient is scheduled for a CAT scan of her abdomen and pelvis with contrast on the by her cabinet installer. She is coming the hospital today for increasing generalized weakness. She denies any significant pain at this time. Denies any chest pain or shortness of breath. Denies any other complaints. EMS noted in the report that she has had a chronic GI bleed. Patient reports that this is false. Systemic: Pt denies fatigue, fever/chills, rash. Pt denies weakness, night sweats, weight loss. Neuro: Pt denies headache, visual disturbances, syncope or pre-syncope. HEENT: Pt denies ocular discharge or irritation, otalgia, rhinorrhea, pharyngitis or notable lymphadenopathy. Cardiopulmonary: Pt denies chest pain, SOB, heart palpitations, dyspnea on exertion. Abdominal/GI: Pt denies nausea and vomiting. : Pt denies dysuria, burning w/ urination, frequency/urgency. Denies new onset urinary or bowel incontinence. MSK: Pt denies myalgia, loss of strength or function in extremities. Neuro: Pt denies new onset weakness, paresthesias. - Related Data Home Medications Medication Instructions Recorded Confirmed Latanoprost Ophth [Xalatan 0.005%] 1 drops BOTH EYES HS 11/25/13 02/29/20 Multivitamin/Iron/Folic Acid 1 tab PO DAILY 11/25/13 02/29/20 [Centrum Complete Multivit Tab] Citalopram Hydrobromide [CeleXA] 40 mg PO DAILY 08/24/15 02/29/20 Atorvastatin [Lipitor] 80 mg PO HS 06/11/18 02/29/20 Dorzolamide-Timol 2.23%/0.68% 1 drop BOTH EYES BID 08/03/19 02/29/20 [Cosopt] Clindamycin Gel [Clindamycin 1 applic TOPICAL BID 01/22/20 02/29/20 Phosphate 1% Gel] Levothyroxine Sodium [Synthroid] 75 mcg PO DAILY 01/22/20 02/29/20 Vit C/E/Zn/Coppr/Lutein/Zeaxan 1 tab PO BID 01/22/20 02/29/20 [Preservision Areds 2 Softgel] ALPRAZolam [Xanax] 0.5 mg PO BID PRN 02/29/20 02/29/20 ARIPiprazole [Abilify] 5 mg PO TU 02/29/20 02/29/20 Cholecalciferol [Vitamin D3 (25 5,000 unit PO DAILY 02/29/20 02/29/20 Mcg = 1000 Iu)] Dicyclomine HCl 10 mg PO TID 02/29/20 02/29/20 Allergies Allergy/AdvReac Type Severity Reaction Status Date / Time No Known Allergies Allergy Verified 02/29/20 15:02 Review of Systems ROS Statement: Those systems with pertinent positive or pertinent negative responses have been documented in the HPI. ROS Other: All systems not noted in ROS Statement are negative. Past Medical History Past Medical History: CVA/TIA, Hyperlipidemia, Osteoarthritis (OA), Thyroid Disorder Additional Past Medical History / Comment(s): states frequent diarrhea, states 60lb weight loss since 05/2019, states being treated for rash, legs, arms, back, HX OF COLON POLYP, glaucoma, macular degeneration, CVA 1997 and TIA 2011 History of Any Multi-Drug Resistant Organisms: None Reported Past Surgical History: Joint Replacement, Orthopedic Surgery Additional Past Surgical History / Comment(s): cyst removed left ovary, detached retina repair, artery in groin 99% blocked "cleaned out", sinus surgery 2001, bilat hip replacement 2005 and 2013, cataract surgery sarina, hx of sciatic nerve block Past Anesthesia/Blood Transfusion Reactions: No Reported Reaction Past Psychological History: Anxiety, Depression Smoking Status: Former smoker Past Alcohol Use History: None Reported Past Drug Use History: None Reported - Past Family History Brother(s) Family Medical History: Cancer Additional Family Medical History / Comment(s): pancreatic Sister(s) Family Medical History: Cancer, Myocardial Infarction (CT) Additional Family Medical History / Comment(s): skin cancer and cervical cancer Father Family Medical History: Coronary Artery Disease (CAD) General Exam - General Exam Comments Initial Comments: Constitutional: NAD, AOX3, Pt has pleasant affect. HEENT: NC/AT, trachea midline, neck supple, no lymphadenopathy. External ears appear normal, without discharge. Mucous membranes moist. Eyes PERRLA, EOM intact. There is no scleral icterus. No pallor noted. Cardiopulmonary: RRR, no murmurs, rubs or gallops, no JVD noted. Lungs CTAB in anterior and posterior ruiz. No peripheral edema. Abdominal exam: Abdomen soft and non-distended. Abdomen non-tender to palpation in all 4 quadrants. Bowel sounds active in LLQ. No hepatosplenomegaly. No ecchymosis Neuro: CN II-XII grossly intact. No nuchal rigidity. No raccon eyes, no nguyen sign, no hemotympanum. No cervical spinal tenderness. MSK: Full active ROM in upper and lower extremities, 5/5 stregnth. Limitations: no limitations Course Vital Signs 02/29/20 02/29/20 02/29/20 13:26 14:50 16:41 Temperature 97.9 F Pulse Rate 55 L 61 64 Respiratory 16 16 16 Rate Blood Pressure 152/73 143/92 146/97 O2 Sat by Pulse 98 98 99 Oximetry Medical Decision Making - Medical Decision Making 74-year-old female patient the ED for evaluation of weakness, diarrhea, weight loss, no current pain but she has had some discomfort in the past. His exam is negative for acute pathology. Laboratory investigations are unremarkable. CT abdomen and pelvis was performed and displayed no evidence of acute abdomen and pelvis, cholelithiasis, atherosclerotic vascular disease. Patient is able to without difficulty no acute distress. She'll be discharged to follow-up with her primary care provider and cabinet installer. Case discussed with Dr. Salas. - Lab Data Result diagrams: 02/29/20 14:17 02/29/20 14:17 Lab Results 02/29/20 02/29/20 02/29/20 Range/Units 14:17 14:17 14:17 WBC 7.3 (3.8-10.6) k/uL RBC 4.58 (3.80-5.40) m/uL Hgb 14.1 (11.4-16.0) gm/dL Hct 42.3 (34.0-46.0) % MCV 92.2 (80.0-100.0) fL MCH 30.7 (25.0-35.0) pg MCHC 33.4 (31.0-37.0) g/dL RDW 13.1 (11.5-15.5) % Plt Count 184 (150-450) k/uL MPV 7.5 Neutrophils % 65 % Lymphocytes % 20 % Monocytes % 7 % Eosinophils % 5 % Basophils % 1 % Neutrophils # 4.8 (1.3-7.7) k/uL Lymphocytes # 1.5 (1.0-4.8) k/uL Monocytes # 0.5 (0-1.0) k/uL Eosinophils # 0.3 (0-0.7) k/uL Basophils # 0.1 (0-0.2) k/uL Sodium 136 L (137-145) mmol/L Potassium 4.2 (3.5-5.1) mmol/L Chloride 105 (98-107) mmol/L Carbon Dioxide 27 (22-30) mmol/L Anion Gap 4 mmol/L BUN 15 (7-17) mg/dL Creatinine 0.83 (0.52-1.04) mg/dL Est GFR (CKD-EPI)AfAm 82 (>60 ml/min/1.73 sqM) Est GFR (CKD-EPI)NonAf 71 (>60 ml/min/1.73 sqM) Glucose 87 (74-99) mg/dL Plasma Lactic Acid Pranav (0.7-2.0) mmol/L Calcium 9.5 (8.4-10.2) mg/dL Phosphorus (2.5-4.5) mg/dL Magnesium (1.6-2.3) mg/dL Total Bilirubin 1.4 H (0.2-1.3) mg/dL AST 35 (14-36) U/L ALT 27 (4-34) U/L Alkaline Phosphatase 93 (38-126) U/L Total Protein 6.9 (6.3-8.2) g/dL Albumin 3.8 (3.5-5.0) g/dL Lipase 140 (23-300) U/L Urine Color Yellow Urine Appearance Clear (Clear) Urine pH 5.0 (5.0-8.0) Ur Specific [place] 1.017 (1.001-1.035) Urine Protein Negative (Negative) Urine Glucose (UA) Negative (Negative) Urine Ketones 1+ H (Negative) Urine Blood Negative (Negative) Urine Nitrite Negative (Negative) Urine Bilirubin Negative (Negative) Urine Urobilinogen <2.0 (<2.0) mg/dL Ur Leukocyte Esterase Small H (Negative) Urine RBC <1 (0-5) /hpf Urine WBC 1 (0-5) /hpf Ur Squamous Epith Cells <1 (0-4) /hpf Urine Mucus Rare H (None) /hpf 02/29/20 02/29/20 Range/Units 14:17 14:17 WBC (3.8-10.6) k/uL RBC (3.80-5.40) m/uL Hgb (11.4-16.0) gm/dL Hct (34.0-46.0) % MCV (80.0-100.0) fL MCH (25.0-35.0) pg MCHC (31.0-37.0) g/dL RDW (11.5-15.5) % Plt Count (150-450) k/uL MPV Neutrophils % % Lymphocytes % % Monocytes % % Eosinophils % % Basophils % % Neutrophils # (1.3-7.7) k/uL Lymphocytes # (1.0-4.8) k/uL Monocytes # (0-1.0) k/uL Eosinophils # (0-0.7) k/uL Basophils # (0-0.2) k/uL Sodium (137-145) mmol/L Potassium (3.5-5.1) mmol/L Chloride (98-107) mmol/L Carbon Dioxide (22-30) mmol/L Anion Gap mmol/L BUN (7-17) mg/dL Creatinine (0.52-1.04) mg/dL Est GFR (CKD-EPI)AfAm (>60 ml/min/1.73 sqM) Est GFR (CKD-EPI)NonAf (>60 ml/min/1.73 sqM) Glucose (74-99) mg/dL Plasma Lactic Acid Pranav 1.1 (0.7-2.0) mmol/L Calcium (8.4-10.2) mg/dL Phosphorus 4.1 (2.5-4.5) mg/dL Magnesium 2.0 (1.6-2.3) mg/dL Total Bilirubin (0.2-1.3) mg/dL AST (14-36) U/L ALT (4-34) U/L Alkaline Phosphatase (38-126) U/L Total Protein (6.3-8.2) g/dL Albumin (3.5-5.0) g/dL Lipase (23-300) U/L Urine Color Urine Appearance (Clear) Urine pH (5.0-8.0) Ur Specific [place] (1.001-1.035) Urine Protein (Negative) Urine Glucose (UA) (Negative) Urine Ketones (Negative) Urine Blood (Negative) Urine Nitrite (Negative) Urine Bilirubin (Negative) Urine Urobilinogen (<2.0) mg/dL Ur Leukocyte Esterase (Negative) Urine RBC (0-5) /hpf Urine WBC (0-5) /hpf Ur Squamous Epith Cells (0-4) /hpf Urine Mucus (None) /hpf - EKG Data -: EKG Interpreted by Me (and Dr. Salas ) EKG Comments: Ventricular rate 59, WI interval 162, QRS 88, QT/QTc 432/427. Sinus bradycardia, otherwise normal EKG. Disposition Clinical Impression: Diarrhea Disposition: HOME SELF-CARE Condition: Stable Instructions (If sedation given, give patient instructions): Acute Diarrhea (ED), Nutrition Tips for Relief of Diarrhea (ED) Additional Instructions: Follow up with PCP and GI tomorrow. Return to ED with any worsening symptoms. Is patient prescribed a controlled substance at d/c from ED?: No Referrals: Rusty Dempsey DO [Primary Care Provider] - 1-2 days Brittnee Weiss MD [STAFF PHYSICIAN] - 1-2 days
[2020-02-29 14:50] LABS: Appearance,Urine Clear (Clear); Bilirubin,Urine Negative (Negative); Blood,Urine Negative (Negative); Color,Urine Yellow; Glucose,Urine (UA) Negative (Negative); Ketones,Urine 1+ (Negative); Leukocyte Esterase,Urine Small (Negative); Mucus,Urine Rare /hpf; Nitrite,Urine Negative (Negative); Protein,Urine Negative (Negative); RBC,Urine <1 /hpf (0-5); Specific Gravity,Urine 1.017 (1.001-1.035); Squamous Epithelial Cell,Urine <1 /hpf (0-4); Urobilinogen,Urine <2.0 mg/dL (<2.0); WBC,Urine 1 /hpf (0-5)
[2020-02-29] MEDS ORDERED: SODIUM CHLORIDE 0.9% 500 ML 500 ML IV ONE (15:25)
[2020-02-29 15:36] LABS: Phosphorus 4.1 mg/dL (2.5-4.5)
--- NOTE | 2020-02-29 15:59 | CT ---
EXAMINATION TYPE: CT abdomen pelvis w con DATE OF EXAM: 02/29/2020 COMPARISON: None HISTORY: 60lb weight loss. Diarrhea x [address] DLP: 1488.7 mGycm Automated exposure control for dose reduction was used. CONTRAST: Performed with IV Contrast, patient injected with 100 mL of Isovue 300. Lung bases are clear. There is no pleural effusion. Heart is normal. There is no pericardial effusion . Liver spleen stomach pancreas appear normal. Bile ducts are not dilated. There are numerous calcified gallstones. There is no adrenal mass. Kidneys show satisfactory contrast opacification. There is no hydronephrosi s. Ureters are not dilated. There is no retroperitoneal adenopathy. Bladder distends smoothly. There is bilateral hip prosthesis. There is no free fluid in the pelvis. Lumbar vertebra have fairly normal alignment. There is a mild degenerative first-degree L4-5 spondylo listhesis. There is no compression fracture. The bony pelvis is intact. There is no mesenteric edema. There is no ascites or free air. There is no bowel obstruction. IMPRESSION: No evidence of acute abdomen and pelvis. Cholelithiasis. Atherosclerotic vascular disease.
[2020-02-29 17:48] VITALS: BP 140/63; PULSE 60
== END 2020-02-29 17:48 | disposition home or self-care (01) ==
LOC: EC 13:25
DX: R19.7 Diarrhea, unspecified (principal); R53.1 Weakness; F41.9 Anxiety disorder, unspecified; F32.9 Major depressive disorder, single episode, unspecified; E78.5 Hyperlipidemia, unspecified; M19.90 Unspecified osteoarthritis, unspecified site; E07.9 Disorder of thyroid, unspecified; H40.9 Unspecified glaucoma; H35.30 Unspecified macular degeneration; Z79.899 Other long term (current) drug therapy; Z86.73 Personal history of transient ischemic attack (TIA), and cerebral infarction without residual deficits; Z87.891 Personal history of nicotine dependence; Z96.643 Presence of artificial hip joint, bilateral
CPT/HCPCS: 36415; 80053; 83605; 83690; 83735; 84100; 85025; 81001; 74177; 99285; 96360; Q9967

== ENCOUNTER 2020-05-06 14:13 | Emergency (ER) | payer MEDICARE, OTHER ==
[2020-05-06 14:21] VITALS: BP 144/80; PULSE 60; RESP 18; TEMP 98
--- NOTE | 2020-05-06 14:35 | ED ---
Altered Mental Status HPI - General Chief Complaint: Altered Mental Status Stated Complaint: AMS Time Seen by Provider: 05/06/20 14:24 Source: patient, family Mode of arrival: wheelchair Limitations: altered mental status - History of Present Illness Initial Comments: 74-year-old female with history of previous CVA presenting today for chief complaint of memory changes x 1 month. Patient states that for the past month or longer she is just not like herself she states she cannot remember things like she used to. states that she'll forget what she is talking about midsentence, and is overall very forgetful. Both patient as well as deny any noticed weakness sensation deficits visual disturbances any facial droop. Patient denies dizziness or feeling off balance. She denies headaches falls or trauma to the head. Patient denies dysuria urgency frequency was states she does have some vaginal itching. Patient denies vaginal bleeding. Patient denies chest pain shortness of breath. She states that she feels like she does need a psychiatrist. Patient denies suicidal or homicidal ideation. Patient states that the memory changes make her sad. Patient states her sister did have dementia. Patient denies fevers neck stiffness. Denies leg swelling. No additional complaints noted upon arrival patient appears nontoxic she is in no acute distress - Related Data Home Medications Medication Instructions Recorded Confirmed Latanoprost Ophth [Xalatan 0.005%] 1 drop BOTH EYES HS 11/25/13 05/06/20 Citalopram Hydrobromide [CeleXA] 40 mg PO DAILY 08/24/15 05/06/20 Atorvastatin [Lipitor] 80 mg PO HS 06/11/18 05/06/20 Dorzolamide-Timol 2.23%/0.68% 1 drop BOTH EYES BID 08/03/19 05/06/20 [Cosopt] Levothyroxine Sodium [Synthroid] 75 mcg PO DAILY 01/22/20 05/06/20 ALPRAZolam [Xanax] 0.5 mg PO BID PRN 02/29/20 05/06/20 ARIPiprazole [Abilify] 2 mg PO WE 05/06/20 05/06/20 Previous Rx's Medication Instructions Recorded Nystatin/Triamcin 1 applicate TOPICAL BID 7 Days #30 05/06/20 [Nystatin-Triamcinolone Cream] gm Allergies Allergy/AdvReac Type Severity Reaction Status Date / Time No Known Allergies Allergy Verified 05/06/20 15:28 Review of Systems ROS Statement: Those systems with pertinent positive or pertinent negative responses have been documented in the HPI. ROS Other: All systems not noted in ROS Statement are negative. Past Medical History Past Medical History: CVA/TIA, Hyperlipidemia, Osteoarthritis (OA), Thyroid Disorder Additional Past Medical History / Comment(s): states frequent diarrhea, states 60lb weight loss since 05/2019, states being treated for rash, legs, arms, back, HX OF COLON POLYP, glaucoma, macular degeneration, CVA 1997 and TIA 2011 History of Any Multi-Drug Resistant Organisms: None Reported Past Surgical History: Joint Replacement, Orthopedic Surgery Additional Past Surgical History / Comment(s): cyst removed left ovary, detached retina repair, artery in groin 99% blocked "cleaned out", sinus surgery 2001, bilat hip replacement 2005 and 2013, cataract surgery sarina, hx of sciatic nerve block Past Anesthesia/Blood Transfusion Reactions: No Reported Reaction Past Psychological History: Anxiety, Depression Smoking Status: Former smoker Past Alcohol Use History: None Reported Past Drug Use History: None Reported - Past Family History Brother(s) Family Medical History: Cancer Additional Family Medical History / Comment(s): pancreatic Sister(s) Family Medical History: Cancer, Myocardial Infarction (OR) Additional Family Medical History / Comment(s): skin cancer and cervical cancer Father Family Medical History: Coronary Artery Disease (CAD) General Exam - General Exam Comments Initial Comments: General: The patient is awake and alert, in no distress Eye: + 3mm pupils are equal, round and reactive to light, extra-ocular movements are intact. No nystagmus. There is normal conjunctiva bilaterally. No signs of icterus. Ears, nose, mouth and throat: There are moist mucous membranes and no oral lesions. Neck: The neck is supple, there is no tenderness or JVD. Cardiovascular: There is a regular rate and rhythm. No murmur, rub or gallop is appreciated. Respiratory: Lungs are clear to auscultation, respirations are non-labored, breath sounds are equal. No wheezes, stridor, rales, or rhonchi. Gastrointestinal: Soft, non-distended, non-tender abdomen without masses or organomegaly noted. There is no rebound or guarding present. : some external vaginal irritation no discharge noted. Musculoskeletal: Normal ROM, no tenderness. Strength 5/5 of the UE and LE equal b/l. Sensation intact of the UE and LE equal b/l. No pronator drift. Radial and DP pulses equal bilaterally 2+. Neurological: A&O x 3. CN II-XII intact, There are no obvious motor or sensory deficits. Coordination intact. Speech is normal. Skin: Skin is warm and dry and no rashes or lesions are noted. Psychiatric: Cooperative, appropriate mood & affect, normal judgment. Limitations: altered mental status Course Vital Signs 05/06/20 14:14 Temperature 98 F Pulse Rate 60 Respiratory 18 Rate Blood Pressure 144/80 O2 Sat by Pulse 99 Oximetry Medical Decision Making - Medical Decision Making Labs stable. Anion gap WNL. Patient does not appear acutely altered, she is answering questions appropriately. Hx of memory changes last month. No focal neurological deficits. Patient CT no acute findings. Patient VS stable. She denies suicidal thoughts, does not appear psychotic. Family history of dementia. After discussing the case attending provider Dr. Kc a few patient stable for discharge with primary care follow-up and return for worsening symptoms. I did recommend neurology evaluation outpatient both patient as well as who is bedside is agreeable to this care plan as well as discharge this time. Patient did have appearance of a very mild fungal infection of the external vagina there is no evidence of internal infection and was started on a topical cream. - Lab Data Result diagrams: 05/06/20 14:35 05/06/20 14:35 Lab Results 05/06/20 05/06/20 05/06/20 Range/Units 14:35 14:35 14:35 WBC 7.2 (3.8-10.6) k/uL RBC 4.56 (3.80-5.40) m/uL Hgb 14.2 (11.4-16.0) gm/dL Hct 40.9 (34.0-46.0) % MCV 89.7 (80.0-100.0) fL MCH 31.1 (25.0-35.0) pg MCHC 34.7 (31.0-37.0) g/dL RDW 13.3 (11.5-15.5) % Plt Count 195 (150-450) k/uL MPV 7.4 Neutrophils % 57 % Lymphocytes % 28 % Monocytes % 6 % Eosinophils % 6 % Basophils % 1 % Neutrophils # 4.1 (1.3-7.7) k/uL Lymphocytes # 2.0 (1.0-4.8) k/uL Monocytes # 0.4 (0-1.0) k/uL Eosinophils # 0.4 (0-0.7) k/uL Basophils # 0.1 (0-0.2) k/uL Sodium 140 (137-145) mmol/L Potassium 3.9 (3.5-5.1) mmol/L Chloride 102 (98-107) mmol/L Carbon Dioxide 30 (22-30) mmol/L Anion Gap 8 mmol/L BUN 14 (7-17) mg/dL Creatinine 0.83 (0.52-1.04) mg/dL Est GFR (CKD-EPI)AfAm 82 (>60 ml/min/1.73 sqM) Est GFR (CKD-EPI)NonAf 71 (>60 ml/min/1.73 sqM) Glucose 101 H (74-99) mg/dL Calcium 9.8 (8.4-10.2) mg/dL Total Bilirubin 1.3 (0.2-1.3) mg/dL AST 29 (14-36) U/L ALT 21 (4-34) U/L Alkaline Phosphatase 95 (38-126) U/L Ammonia <9 (<30) umol/L Total Protein 7.2 (6.3-8.2) g/dL Albumin 4.2 (3.5-5.0) g/dL TSH 1.340 (0.465-4.680) mIU/L Urine Color Urine Appearance (Clear) Urine pH (5.0-8.0) Ur Specific [place] (1.001-1.035) Urine Protein (Negative) Urine Glucose (UA) (Negative) Urine Ketones (Negative) Urine Blood (Negative) Urine Nitrite (Negative) Urine Bilirubin (Negative) Urine Urobilinogen (<2.0) mg/dL Ur Leukocyte Esterase (Negative) Urine RBC (0-5) /hpf Urine WBC (0-5) /hpf Ur Squamous Epith Cells (0-4) /hpf Urine Mucus (None) /hpf 05/06/20 Range/Units 14:46 WBC (3.8-10.6) k/uL RBC (3.80-5.40) m/uL Hgb (11.4-16.0) gm/dL Hct (34.0-46.0) % MCV (80.0-100.0) fL MCH (25.0-35.0) pg MCHC (31.0-37.0) g/dL RDW (11.5-15.5) % Plt Count (150-450) k/uL MPV Neutrophils % % Lymphocytes % % Monocytes % % Eosinophils % % Basophils % % Neutrophils # (1.3-7.7) k/uL Lymphocytes # (1.0-4.8) k/uL Monocytes # (0-1.0) k/uL Eosinophils # (0-0.7) k/uL Basophils # (0-0.2) k/uL Sodium (137-145) mmol/L Potassium (3.5-5.1) mmol/L Chloride (98-107) mmol/L Carbon Dioxide (22-30) mmol/L Anion Gap mmol/L BUN (7-17) mg/dL Creatinine (0.52-1.04) mg/dL Est GFR (CKD-EPI)AfAm (>60 ml/min/1.73 sqM) Est GFR (CKD-EPI)NonAf (>60 ml/min/1.73 sqM) Glucose (74-99) mg/dL Calcium (8.4-10.2) mg/dL Total Bilirubin (0.2-1.3) mg/dL AST (14-36) U/L ALT (4-34) U/L Alkaline Phosphatase (38-126) U/L Ammonia (<30) umol/L Total Protein (6.3-8.2) g/dL Albumin (3.5-5.0) g/dL TSH (0.465-4.680) mIU/L Urine Color Yellow Urine Appearance Clear (Clear) Urine pH 5.5 (5.0-8.0) Ur Specific [place] 1.019 (1.001-1.035) Urine Protein Negative (Negative) Urine Glucose (UA) Negative (Negative) Urine Ketones Negative (Negative) Urine Blood Negative (Negative) Urine Nitrite Negative (Negative) Urine Bilirubin Negative (Negative) Urine Urobilinogen <2.0 (<2.0) mg/dL Ur Leukocyte Esterase Small H (Negative) Urine RBC 2 (0-5) /hpf Urine WBC 3 (0-5) /hpf Ur Squamous Epith Cells <1 (0-4) /hpf Urine Mucus Rare H (None) /hpf Disposition Clinical Impression: Memory changes, Vaginal itching Disposition: HOME SELF-CARE Condition: Good Instructions (If sedation given, give patient instructions): Dementia (ED) Additional Instructions: Please use medication as discussed. Please follow-up with family doctor in the next 2 days, recommend neurology follow-up. Please return to emergency room if the symptoms increase or worsen or for any other concerns. Prescriptions: Nystatin/Triamcin [Nystatin-Triamcinolone Cream] 1 applicate TOPICAL BID 7 Days #30 gm Is patient prescribed a controlled substance at d/c from ED?: No Referrals: Rusty Dempsey DO [Primary Care Provider] - 1-2 days Volodymyr Wells MD [REFERRING] - 1-2 days Time of Disposition: 15:49
[2020-05-06 14:58] LABS: Basophils # (A) 0.1 k/uL (0-0.2); Basophils % (A) 1 %; Eosinophils # (A) 0.4 k/uL (0-0.7); Eosinophils % (A) 6 %; HCT 40.9 % (34.0-46.0); HGB 14.2 gm/dL (11.4-16.0); Lymphocytes % (A) 28 %; MCH 31.1 pg (25.0-35.0); MCHC 34.7 g/dL (31.0-37.0); MCV 89.7 fL (80.0-100.0); Mean Platelet Volume 7.4; Monocytes # (A) 0.4 k/uL (0-1.0); Monocytes % (A) 6 %; Neutrophils # (A) 4.1 k/uL (1.3-7.7); Neutrophils % (A) 57 %; Platelet Count 195 k/uL (150-450); RBC 4.56 m/uL (3.80-5.40); RDW 13.3 % (11.5-15.5); WBC 7.2 k/uL (3.8-10.6)
[2020-05-06 15:09] LABS: Appearance,Urine Clear (Clear); Bilirubin,Urine Negative (Negative); Blood,Urine Negative (Negative); Color,Urine Yellow; Glucose,Urine (UA) Negative (Negative); Ketones,Urine Negative (Negative); Leukocyte Esterase,Urine Small (Negative); Mucus,Urine Rare /hpf; Nitrite,Urine Negative (Negative); PH, Urine 5.5 (5.0-8.0); Protein,Urine Negative (Negative); RBC,Urine 2 /hpf (0-5); Specific Gravity,Urine 1.019 (1.001-1.035); Squamous Epithelial Cell,Urine <1 /hpf (0-4); Urobilinogen,Urine <2.0 mg/dL (<2.0); WBC,Urine 3 /hpf (0-5)
--- NOTE | 2020-05-06 15:11 | CT ---
EXAMINATION TYPE: CT brain wo con DATE OF EXAM: 05/06/2020 COMPARISON: CT brain 07/12/2017 HISTORY: altered mental status CT DLP: 1098.4 mGycm Automated exposure control for dose reduction was used. Helical imaging through the brain FINDINGS: Inflammatory changes present within the ethmoid air cells. There is no hemorrhage or hydrocephalus. T here is evidence of prior cerebrovascular accident, low-attenuation in the right frontal parietal loc ation as on prior exam. Prior report stated left within the body but right within the impression, the re is periventricular white matter low-attenuation similar to prior exam as well as cortical atrophy, there are cerebral vascular calcifications. Left lobe shows metallic density similar to prior exam a long the periphery. IMPRESSION: CHRONIC SMALL VESSEL ISCHEMIC CHANGE, AGE RELATED ATROPHY. SINUS DISEASE.
[2020-05-06 15:13] LABS: Albumin 4.2 g/dL (3.5-5.0); Calcium 9.8 mg/dL (8.4-10.2); Potassium 3.9 mmol/L (3.5-5.1); Total Bilirubin 1.3 mg/dL (0.2-1.3); Total Protein 7.2 g/dL (6.3-8.2)
== END 2020-05-06 16:08 | disposition home or self-care (01) ==
LOC: EC 14:13
DX: R41.3 Other amnesia (principal); N89.8 Other specified noninflammatory disorders of vagina; R41.82 Altered mental status, unspecified; F41.9 Anxiety disorder, unspecified; F32.9 Major depressive disorder, single episode, unspecified; E78.5 Hyperlipidemia, unspecified; E07.9 Disorder of thyroid, unspecified; M19.90 Unspecified osteoarthritis, unspecified site; H40.9 Unspecified glaucoma; Z86.73 Personal history of transient ischemic attack (TIA), and cerebral infarction without residual deficits; Z79.899 Other long term (current) drug therapy; Z96.643 Presence of artificial hip joint, bilateral; Z87.891 Personal history of nicotine dependence
CPT/HCPCS: 36415; 70450; 80053; 81001; 82140; 84443; 85025; 99285

== ENCOUNTER 2020-08-06 17:32 | Inpatient (IN) | payer MEDICARE, OTHER ==
[2020-08-06] MEDS ORDERED: SODIUM CHLORIDE 0.9% 1,000 ML IV ONE (19:11)
--- NOTE | 2020-08-06 19:14 | ED ---
General Adult HPI - General Chief complaint: Altered Mental Status Stated complaint: confusion Time Seen by Provider: 08/06/20 18:45 Source: patient, RN notes reviewed Mode of arrival: wheelchair Limitations: altered mental status - History of Present Illness Initial comments: Patient is a pleasant 74-year-old female presenting to the emergency department with concerns for confusion. Onset of symptoms was yesterday. Patient states she is forgetful regarding things. Patient denies any headache or pain. No history of liver disease. Patient states she does feel itchy. No isolated area of weakness. No history of similar symptoms previously. - Related Data Home Medications Medication Instructions Recorded Confirmed Citalopram Hydrobromide [CeleXA] 40 mg PO DAILY 08/24/15 08/06/20 Atorvastatin [Lipitor] 80 mg PO HS 06/11/18 08/06/20 Levothyroxine Sodium [Synthroid] 75 mcg PO DAILY 01/22/20 08/06/20 ALPRAZolam [Xanax] 0.5 mg PO BID PRN 02/29/20 08/06/20 ARIPiprazole [Abilify] 2 mg PO DAILY 05/06/20 08/06/20 Allergies Allergy/AdvReac Type Severity Reaction Status Date / Time No Known Allergies Allergy Verified 08/06/20 20:27 Review of Systems ROS Statement: Those systems with pertinent positive or pertinent negative responses have been documented in the HPI. ROS Other: All systems not noted in ROS Statement are negative. Constitutional: Denies: fever Eyes: Denies: eye pain ENT: Denies: ear pain Respiratory: Denies: cough Cardiovascular: Denies: chest pain Endocrine: Denies: fatigue Gastrointestinal: Denies: abdominal pain Genitourinary: Denies: dysuria Musculoskeletal: Denies: back pain Skin: Reports: as per HPI Neurological: Reports: confusion. Denies: headache, weakness Past Medical History Past Medical History: CVA/TIA, Hyperlipidemia, Osteoarthritis (OA), Thyroid Disorder Additional Past Medical History / Comment(s): states frequent diarrhea, states 60lb weight loss since 05/2019, states being treated for rash, legs, arms, zoya k, HX OF COLON POLYP, glaucoma, macular degeneration, CVA 1997 and TIA 2011 History of Any Multi-Drug Resistant Organisms: None Reported Past Surgical History: Joint Replacement, Orthopedic Surgery Additional Past Surgical History / Comment(s): cyst removed left ovary, detached retina repair, artery in groin 99% blocked "cleaned out", sinus surgery 2001, bilat hip replacement 2005 and 2013, cataract surgery sarina, hx of sciatic nerve block Past Anesthesia/Blood Transfusion Reactions: No Reported Reaction Past Psychological History: Anxiety, Depression Smoking Status: Former smoker Past Alcohol Use History: None Reported Past Drug Use History: None Reported - Past Family History Brother(s) Family Medical History: Cancer Additional Family Medical History / Comment(s): pancreatic Sister(s) Family Medical History: Cancer, Myocardial Infarction ([place]) Additional Family Medical History / Comment(s): skin cancer and cervical cancer Father Family Medical History: Coronary Artery Disease (CAD) General Exam Limitations: altered mental status General appearance: alert, in no apparent distress Head exam: Present: atraumatic, normocephalic Eye exam: Present: normal appearance, PERRL, EOMI ENT exam: Present: mucous membranes dry Neck exam: Present: normal inspection. Absent: tenderness Respiratory exam: Present: normal lung sounds bilaterally Cardiovascular Exam: Present: regular rate, normal rhythm GI/Abdominal exam: Present: soft. Absent: tenderness Extremities exam: Present: normal inspection Neurological exam: Present: alert, CN II-XII intact. Absent: motor sensory deficit Expanded Neurological exam: Present: protecting the airway Patient oriented to: Present: person, place. Absent: time Speech: Present: fluid speech Cranial nerves: EOM's Intact: Normal Motor strength exam: RUE: 5, LUE: 5, RLE: 5, LLE: 5 Eye Response: (4) open spontaneously Motor Response: (6) obeys commands Verbal Response: (4) confused conversation Psychiatric exam: Present: normal affect, normal mood Skin exam: Present: other (Patient does have 1 cm superficial skin lesion on the right lower leg with some skin excoriation.) Course Vital Signs 08/06/20 08/06/20 18:10 20:43 Temperature 98.6 F Pulse Rate 79 72 Respiratory 20 18 Rate Blood Pressure 135/77 152/98 O2 Sat by Pulse 99 100 Oximetry EKG Findings - EKG Comments: EKG Findings:: Normal sinus rhythm with a rate of 73. PA 152. QRS 90. QT 344. QTC 378. Normal axis. Q wave in lead III. No acute ST change. Medical Decision Making - Medical Decision Making Patient reevaluated. Patient and family updated. Family adds that patient has been very forgetful lately including some basic tasks, such as feeding cats - Lab Data Result diagrams: 08/06/20 19:57 08/06/20 19:57 Lab Results 08/06/20 08/06/20 08/06/20 Range/Units 19:57 19:57 19:57 WBC 8.5 (3.8-10.6) k/uL RBC 4.86 (3.80-5.40) m/uL Hgb 14.1 (11.4-16.0) gm/dL Hct 43.1 (34.0-46.0) % MCV 88.8 (80.0-100.0) fL MCH 29.1 (25.0-35.0) pg MCHC 32.8 (31.0-37.0) g/dL RDW 13.3 (11.5-15.5) % Plt Count (150-450) k/uL MPV 8.0 Neutrophils % 54 % Lymphocytes % 29 % Monocytes % 8 % Eosinophils % 3 % Basophils % 2 % Neutrophils # 4.6 (1.3-7.7) k/uL Lymphocytes # 2.4 (1.0-4.8) k/uL Monocytes # 0.7 (0-1.0) k/uL Eosinophils # 0.3 (0-0.7) k/uL Basophils # 0.2 (0-0.2) k/uL PT 14.5 H (9.0-12.0) sec INR 1.4 H (<1.2) APTT 27.1 (22.0-30.0) sec Sodium (137-145) mmol/L Potassium (3.5-5.1) mmol/L Chloride (98-107) mmol/L Carbon Dioxide (22-30) mmol/L Anion Gap mmol/L BUN (7-17) mg/dL Creatinine (0.52-1.04) mg/dL Est GFR (CKD-EPI)AfAm (>60 ml/min/1.73 sqM) Est GFR (CKD-EPI)NonAf (>60 ml/min/1.73 sqM) Glucose (74-99) mg/dL Calcium (8.4-10.2) mg/dL Total Bilirubin (0.2-1.3) mg/dL AST (14-36) U/L ALT (4-34) U/L Alkaline Phosphatase (38-126) U/L Troponin I (0.000-0.034) ng/mL Total Protein (6.3-8.2) g/dL Albumin (3.5-5.0) g/dL Urine Color Yellow Urine Appearance Cloudy H (Clear) Urine pH 5.0 (5.0-8.0) Ur Specific [place] 1.031 (1.001-1.035) Urine Protein Trace H (Negative) Urine Glucose (UA) Negative (Negative) Urine Ketones Negative (Negative) Urine Blood Negative (Negative) Urine Nitrite Negative (Negative) Urine Bilirubin Negative (Negative) Urine Urobilinogen <2.0 (<2.0) mg/dL Ur Leukocyte Esterase Negative (Negative) Urine RBC 1 (0-5) /hpf Urine WBC 1 (0-5) /hpf Ur Squamous Epith Cells <1 (0-4) /hpf Calcium Oxalate Crystal Moderate H (None) /hpf Urine Bacteria Rare H (None) /hpf Hyaline Casts 3 H (0-2) /lpf Urine Mucus Occasional H (None) /hpf Urine Opiates Screen Not Detected (NotDetected) Ur Oxycodone Screen Not Detected (NotDetected) Urine Methadone Screen Not Detected (NotDetected) Ur Propoxyphene Screen Not Detected (NotDetected) Ur Barbiturates Screen Not Detected (NotDetected) U Tricyclic Antidepress Not Detected (NotDetected) Ur Phencyclidine Scrn Not Detected (NotDetected) Ur Amphetamines Screen Not Detected (NotDetected) U Methamphetamines Scrn Not Detected (NotDetected) U Benzodiazepines Scrn Not Detected (NotDetected) Urine Cocaine Screen Not Detected (NotDetected) U Marijuana (THC) Screen Not Detected (NotDetected) 08/06/20 08/06/20 Range/Units 19:57 19:57 WBC (3.8-10.6) k/uL RBC (3.80-5.40) m/uL Hgb (11.4-16.0) gm/dL Hct (34.0-46.0) % MCV (80.0-100.0) fL MCH (25.0-35.0) pg MCHC (31.0-37.0) g/dL RDW (11.5-15.5) % Plt Count (150-450) k/uL MPV Neutrophils % % Lymphocytes % % Monocytes % % Eosinophils % % Basophils % % Neutrophils # (1.3-7.7) k/uL Lymphocytes # (1.0-4.8) k/uL Monocytes # (0-1.0) k/uL Eosinophils # (0-0.7) k/uL Basophils # (0-0.2) k/uL PT (9.0-12.0) sec INR (<1.2) APTT (22.0-30.0) sec Sodium 138 (137-145) mmol/L Potassium 4.1 (3.5-5.1) mmol/L Chloride 103 (98-107) mmol/L Carbon Dioxide 29 (22-30) mmol/L Anion Gap 6 mmol/L BUN 19 H (7-17) mg/dL Creatinine 0.97 (0.52-1.04) mg/dL Est GFR (CKD-EPI)AfAm 68 (>60 ml/min/1.73 sqM) Est GFR (CKD-EPI)NonAf 59 (>60 ml/min/1.73 sqM) Glucose 105 H (74-99) mg/dL Calcium 9.9 (8.4-10.2) mg/dL Total Bilirubin 0.9 (0.2-1.3) mg/dL AST 31 (14-36) U/L ALT 12 (4-34) U/L Alkaline Phosphatase 108 (38-126) U/L Troponin I <0.012 (0.000-0.034) ng/mL Total Protein 7.7 (6.3-8.2) g/dL Albumin 4.5 (3.5-5.0) g/dL Urine Color Urine Appearance (Clear) Urine pH (5.0-8.0) Ur Specific [place] (1.001-1.035) Urine Protein (Negative) Urine Glucose (UA) (Negative) Urine Ketones (Negative) Urine Blood (Negative) Urine Nitrite (Negative) Urine Bilirubin (Negative) Urine Urobilinogen (<2.0) mg/dL Ur Leukocyte Esterase (Negative) Urine RBC (0-5) /hpf Urine WBC (0-5) /hpf Ur Squamous Epith Cells (0-4) /hpf Calcium Oxalate Crystal (None) /hpf Urine Bacteria (None) /hpf Hyaline Casts (0-2) /lpf Urine Mucus (None) /hpf Urine Opiates Screen (NotDetected) Ur Oxycodone Screen (NotDetected) Urine Methadone Screen (NotDetected) Ur Propoxyphene Screen (NotDetected) Ur Barbiturates Screen (NotDetected) U Tricyclic Antidepress (NotDetected) Ur Phencyclidine Scrn (NotDetected) Ur Amphetamines Screen (NotDetected) U Methamphetamines Scrn (NotDetected) U Benzodiazepines Scrn (NotDetected) Urine Cocaine Screen (NotDetected) U Marijuana (THC) Screen (NotDetected) - Radiology Data Radiology results: report reviewed (Computed tomography scan of the brain reveals old right frontal lobe infarct. Atrophy. No change from prior.), image reviewed (Two-view chest x-ray reveals no acute process) Disposition Clinical Impression: Altered mental status Disposition: ADMITTED IP TO THIS HOSP Is patient prescribed a controlled substance at d/c from ED?: No Referrals: Rusty Dempsey DO [Primary Care Provider] - 1-2 days Decision Time: 20:51
--- NOTE | 2020-08-06 20:10 | XR ---
EXAMINATION TYPE: XR chest 2V DATE OF EXAM: 08/06/2020 COMPARISON: 08/03/2019 HISTORY: Altered mental status TECHNIQUE: FINDINGS: Heart and mediastinum are normal. Lungs are clear. Diaphragm is normal. Bony thorax is inta ct. There are chest leads. IMPRESSION: Normal chest. No change.
[2020-08-06 20:12] LABS: Appearance,Urine Cloudy (Clear); Bacteria,Urine Rare /hpf; Bilirubin,Urine Negative (Negative); Blood,Urine Negative (Negative); Calcium Oxalate Crystals,Urine Moderate /hpf; Color,Urine Yellow; Glucose,Urine (UA) Negative (Negative); Hyaline Casts,Urine 3 /lpf (0-2); Ketones,Urine Negative (Negative); Leukocyte Esterase,Urine Negative (Negative); Mucus,Urine Occasional /hpf; Nitrite,Urine Negative (Negative); Protein,Urine Trace (Negative); RBC,Urine 1 /hpf (0-5); Specific Gravity,Urine 1.031 (1.001-1.035); Squamous Epithelial Cell,Urine <1 /hpf (0-4); Urobilinogen,Urine <2.0 mg/dL (<2.0); WBC,Urine 1 /hpf (0-5)
--- NOTE | 2020-08-06 20:12 | CT ---
EXAMINATION TYPE: CT brain wo con DATE OF EXAM: 08/06/2020 COMPARISON: 05/06/2020 HISTORY: Altered mental status. CT DLP: 1098.4 mGycm Automated exposure control for dose reduction was used. There is some cerebral atrophy. There is no mass effect nor midline shift. There is no evidence of in tracranial hemorrhage. There is 4 x 3 cm area of hypodensity in the right posterior frontal lobe cons istent with old cortical infarct. The calvarium is intact. Skull base is intact. IMPRESSION: Old right frontal lobe infarct. Cerebral atrophy. No change compared to old exam.
[2020-08-06 20:19] LABS: Basophils # (A) 0.2 k/uL (0-0.2); Basophils % (A) 2 %; Eosinophils # (A) 0.3 k/uL (0-0.7); Eosinophils % (A) 3 %; HCT 43.1 % (34.0-46.0); HGB 14.1 gm/dL (11.4-16.0); Lymphocytes # (A) 2.4 k/uL (1.0-4.8); Lymphocytes % (A) 29 %; MCH 29.1 pg (25.0-35.0); MCHC 32.8 g/dL (31.0-37.0); MCV 88.8 fL (80.0-100.0); Monocytes # (A) 0.7 k/uL (0-1.0); Monocytes % (A) 8 %; Neutrophils # (A) 4.6 k/uL (1.3-7.7); Neutrophils % (A) 54 %; RBC 4.86 m/uL (3.80-5.40); RDW 13.3 % (11.5-15.5); WBC 8.5 k/uL (3.8-10.6)
[2020-08-06 20:24] LABS: Amphetamine Screen,Urine Not Detected (NotDetected); Barbiturate Screen,Urine Not Detected (NotDetected); Benzodiazepines Screen,Urine Not Detected (NotDetected); Cocaine Screen,Urine Not Detected (NotDetected); INR 1.4 (<1.2); Methadone Screen, Urine Not Detected (NotDetected); Opiate Screen,Urine Not Detected (NotDetected); Oxycodone Screen, Urine Not Detected (NotDetected); Partial Thromboplastin Time 27.1 sec (22.0-30.0); Phencyclidine Screen,Urine Not Detected (NotDetected); Prothrombin Time 14.5 sec (9.0-12.0); Tricyclic Antidepressant,Urine Not Detected (NotDetected); Urn Cannabinoid Scrn Not Detected (NotDetected)
[2020-08-06 20:26] LABS: Albumin 4.5 g/dL (3.5-5.0); Calcium 9.9 mg/dL (8.4-10.2); Potassium 4.1 mmol/L (3.5-5.1); Total Bilirubin 0.9 mg/dL (0.2-1.3); Total Protein 7.7 g/dL (6.3-8.2)
[2020-08-06] MEDS ORDERED: NALOXONE 0.4 MG/ML 1 ML VIAL IV PRN (20:52)
--- NOTE | 2020-08-07 10:02 | P.CNNES ---
History of Present Illness Consult date: 08/07/20 Requesting physician: Mariano Kc Reason for Consult: altered mental status History of Present Illness: This is a 74-year-old woman with medical history of prior stroke (20 years ago), TIA's, hyperlipidemia, hypothyroidism, bilateral hip replacement, sciatic nerve block and depression who presented emergency department on 08/06/2020 for confusion. Some of the history is obtained from medical record and patient's . Per the ED note it seems that the patient's onset of symptoms was the day prior to presenting the hospital and she's been forgetful regarding things. Per the patient's (Rd) who I spoke via phone, he stated the patient for last couple month has been forgetful as in forgetting to pay her bills wished as she usually does a good job and the misplacing things as in the cannot find her glasses or phone recently. Patient also has been having generalized weakness. Patient denies of any focal weakness, any numbness, any visual disturbance, a difficulty swallowing, any difficulty getting her words out. The patient and her denied that the patient has history of seizures. Elvis tolliver stated that she had a stroke about 20 years ago but does not recall the details of her stroke. She stated that that she is not on aspirin or any other antiplatelets and does not know why. She sees Dr. Frankie Wells for her neurological care. Patient's home medications consist of Lipitor 80 mg, Synthroid, Celexa, Abilify, Xanax when necessary. Some of the workup in the hospital consisted of: Initial vital signs is a blood pressure of 135/77, heart rate is 79, respiratory of 20, temperature of 98.6 Fahrenheit oral and pulse ox of 99% room air. CT of the head is reported as old right frontal lobe infarct. Cerebral atrophy. No change compared to old exam and the old exam was on 05/06/2020. Upon reviewing prior CT reports it is mentioned that the patient had that this finding the as far back in our reports in 2015 of old right posterior frontal stroke. EKG is reported as normal sinus rhythm. Cannot rule out inferior infarct, age undetermined. Abnormal EKG. White blood cells 8.5 which is normal and the rest of the hematology panel is unremarkable. Patient sodium is 138, creatinine is 0.97, glucose is 105, calcium is 9.9, AST of 31 and ALT of 12 and the the chemistry panel seems unremarkable. Basic toxicology panel is nondetected. Coagulation Study: PT of 14.5, INR is 1.4, PTT of 27.1 Maya virus PCR is nondetected. Urinalysis and the urine is yellow, appears cloudy, protein is trace, leukocyte esterase is negative and nitrate was negative, calcium oxalate crystals are moderate, urine bacteria was rare, urine cast is 3. Review of Systems Review of system: The 12 point system was reviewed and apparent positive and negative per HPI. Past Medical History Past Medical History: CVA/TIA, Hyperlipidemia, Osteoarthritis (OA), Skin Disorder, Thyroid Disorder Additional Past Medical History / Comment(s): states was being treated for rash, legs, arms, back but is not currently, HX OF COLON POLYP, glaucoma, macular degeneration, CVA 1997 and TIA 2011 History of Any Multi-Drug Resistant Organisms: None Reported Past Surgical History: Joint Replacement, Orthopedic Surgery Additional Past Surgical History / Comment(s): cyst removed left ovary, detached retina repair, artery in groin 99% blocked "cleaned out", sinus surgery 2001, bilat hip replacement 2005 and 2013, cataract surgery sarina, hx of sciatic nerve block Past Anesthesia/Blood Transfusion Reactions: No Reported Reaction Past Psychological History: Anxiety, Depression Smoking Status: Former smoker Past Alcohol Use History: None Reported Additional Past Alcohol Use History / Comment(s): quit smoking 1993 smoked 28 years 1ppd Past Drug Use History: None Reported - Past Family History Brother(s) Family Medical History: Cancer Additional Family Medical History / Comment(s): pancreatic Sister(s) Family Medical History: Cancer, Myocardial Infarction ([place]) Additional Family Medical History / Comment(s): skin cancer and cervical cancer Father Family Medical History: Coronary Artery Disease (CAD) Medications and Allergies Home Medications Medication Instructions Recorded Confirmed Type Citalopram Hydrobromide [CeleXA] 40 mg PO DAILY 08/24/15 08/06/20 History Atorvastatin [Lipitor] 80 mg PO HS 06/11/18 08/06/20 History Levothyroxine Sodium [Synthroid] 75 mcg PO DAILY 01/22/20 08/06/20 History ALPRAZolam [Xanax] 0.5 mg PO BID PRN 02/29/20 08/06/20 History ARIPiprazole [Abilify] 2 mg PO DAILY 05/06/20 08/06/20 History Allergies Allergy/AdvReac Type Severity Reaction Status Date / Time No Known Allergies Allergy Verified 08/06/20 20:27 Physical Examination - Vital Signs Vital Signs: Vital Signs Temp Pulse Pulse Resp BP BP Pulse Ox 08/07/20 02:00 97.9 F 62 18 115/69 98 08/06/20 23:15 98.0 F 70 18 124/67 98 08/06/20 20:43 72 18 152/98 100 08/06/20 18:10 98.6 F 79 20 135/77 99 Intake and Output 08/06/20 08/07/20 08/07/20 22:59 06:59 14:59 Other: # Voids 1 Weight 90.718 kg 90.718 kg GENERAL: The patient is an obese lady, lying in bed and is not in acute distress. CHEST: The heart rate is regular rate rhythm. No murmurs to auscultation. No carotid bruit bilaterally. LUNG: Clear to auscultation bilaterally no wheezing noted throughout. Not labored breathing. ABDOMEN/GI: Bowel sounds present in all 4 quadrants. No tenderness to palpation throughout. NEUROLOGICAL: Higher mental function: The patient is awake, alert, oriented to self, place and time. Patient is following commands. No aphasia and no neglect. Cranial nerves: The pupils are round, equal and reactive to light and accommodation. Visual ruiz are full to confrontation throughout. Extraocular movement is intact no nystagmus is noted. Facial sensation is normal to touch throughout. The facial strength is normal throughout. Hearing is normal bilaterally to hand rub. Tongue is midline and moved [id number] without any difficulty. She has some repeated movement of stick her tongue out and seems chewing movement (seem oral automatism). No dysarthria is noted. Shoulder shrug is normal bilaterally. Motor: Gait is normal with normal arm swings. The strength is 5 over 5 throughout. Normal tone and bulk. Cerebellum: Normal finger to nose heel to parrish bilaterally. Sensation: Sensation is normal to touch throughout. Reflexes (right/left)2+ throughout uppers. Patellar are 3+ bilaterally and ankles are 1+ bilaterally.. Plantars are downgoing bilaterally. Results - Laboratory Findings CBC and BMP: 08/06/20 19:57 08/06/20 19:57 Abnormal Lab Findings: Abnormal Labs 08/06/20 08/06/20 08/06/20 19:57 19:57 19:57 PT 14.5 H INR 1.4 H BUN 19 H Glucose 105 H Urine Appearance Cloudy H Urine Protein Trace H Calcium Oxalate Crystal Moderate H Urine Bacteria Rare H Hyaline Casts 3 H Urine Mucus Occasional H Assessment and Plan Assessment: Acute ischemic stroke (right temporal/occipital). Seems embolic. Altered mental status. Per she has been forgetful in paying bills and misplacing things in the past couple months. Rule out Cognitive impairement/dementia vs pseudodementia. Old right posterior frontal stroke (about 20 years ago). Hyperlipidemia Hypothyroid him History of bilateral hip replacement History of sciatic nerve block Plan: * CT of the head is reported as old right frontal lobe infarct. Cerebral atrophy. No change compared to old exam and the old exam was on 05/06/2020. Upon reviewing prior CT reports it is mentioned that the patient had that this finding the as far back in our reports in 2014 of old right posterior frontal stroke. * Regarding the patient's old stroke started the patient on aspirin 81 mg and to continue her Lipitor 80 mg qhs. * I ordered the TSH, vitamin B12, folate level. * I ordered a routine EEG which likely would not be done until Sunday. * Consulted physical therapy and occupational therapyphysi * Ordered Q4 hours neuro checks and continous cardiac monitoring. * Patient oral automatism possibly could be due to her medication effect she is on Abilify, Celexa. She denies having history of seizures in the past. She was a hold off the on any seizures even though she has a history of a frontal encephalomalacia which possibly can increase risk of seizure. * Urinalysis and the urine is yellow, appears cloudy, protein is trace, leukocyte esterase is negative and nitrate was negative, calcium oxalate crystals are moderate, urine bacteria was rare, urine cast is 3. * Will defer further work-up to the primary team. * I recommend the patient to have a neuropsych evaluation regarding her memory evaluation as an outpatient. * The patient needs to follow-up with her neurologist (Dr. Frankie Wells) within 1-2 weeks as an outpatient The plan is discussed with the patient, her (Rd) via phone and her nurse. Thank you for the consultation. UPDATE: MR the brain is reported as multiple small acute infarct in the right temporal occipital white matter likely secondary to shower emboli. Moderate multifocal chronic ischemic white matter changes and remote white matter infarct in the right parietal white matter. Moderate generalized atrophy. Because of acute ischemic stroke: I ordered 2D echo with bubble study, lipid panel. Ordered CTA head and neck. Placed the patient in addition to ASA 81mg, I loaded her with Plavix 300mg once and started on Plavix 75mg daily (both are new medications for her). Continue Lipitor 80mg qhs. Consulted Cardiology for SHERRI. Chris Mann M.D. Neuro-hospitalist Time with Patient: Greater than 30
[2020-08-07] MEDS ORDERED: ALPRAZolam 0.5 MG TAB PO PRN (10:58)
--- NOTE | 2020-08-07 12:07 | MR ---
EXAMINATION TYPE: MR brain wo/w con DATE OF EXAM: 08/07/2020 COMPARISON: None HISTORY: Altered mental status. TECHNIQUE: Multiplanar, multisequence images of the brain and brainstem is performed without and with IV contras t, utilizing 9 mL intravenous Gadavist . FINDINGS: On the T1-weighted sagittal images midline structures including the craniovertebral junction relation ships are normal. The ventricles, basal cisterns and sulci over the convexities are moderately prominent as with modera te generalized degenerative change. There is moderate multifocal areas of abnormal increased signal intensity in the white matter both ce rebral hemispheres consistent with chronic ischemic white matter change. There is a old white matter infarct in the right parietal region. Based on diffusion-weighted imaging, there multiple small focal areas of abnormal signal intensity in the white matter in the right temporal occipital region consistent with small acute infarcts likely from an embolic source or shower. The posterior fossa, multiple remote lacunar infarcts are seen in the cerebellum bilaterally. The fou rth ventricle and cerebellar pontine angles appear normal. There is deformity of the left globe likely secondary to a band placement for retinal detachment. The right globe is normal. There are mild inflammatory changes in the paranasal sinuses and right mastoi d air cells. IMPRESSION: 1. Multiple small acute infarcts in the right temporal occipital white matter likely secondary to annie wer emboli. 2. Moderate multifocal chronic ischemic white matter changes and remote white matter infarct in the r ight parietal white matter 3. Moderate generalized atrophy.
[2020-08-07] MEDS: CITALOPRAM HYDROBROMIDE 20 MG TAB PO SCH (13:09)
[2020-08-07] MEDS: ARIPiprazole 2 MG TAB PO SCH (13:10)
[2020-08-07] MEDS: LEVOTHYROXINE 75 MCG TAB PO SCH (13:10)
[2020-08-07] MEDS: ASPIRIN 81 MG PO SCH (13:10)
[2020-08-07] MEDS: ENOXAPARIN 40 MG/0.4 ML SYRINGE SQ SCH (13:11)
[2020-08-07] MEDS ORDERED: CLOPIDOGREL 75 MG TAB PO STA (13:34)
--- NOTE | 2020-08-07 17:05 | P.HPIM ---
History of Present Illness H&P Date: 08/07/20 Chief Complaint: Increasing confusion History of presenting complaint: This is a 74-year-old patient follows with Dr. Dempsey. Chronic stable medical conditions include osteoarthritis, hypothyroid, glaucoma, macular degeneration with a prior history of stroke in 1997 and a TIA in 2011., Anxiety depression. History is obtained by the ER notes nurses and neurology. Patient presented to the ER with symptoms starting a day prior with altered mental status. Also per the patient for last couple of months has been forgetful and forgetting to pay the bills and misplacing things. Example not finding her glasses are for recently. Denies weakness. No focal neurological symptoms are reported. She does follow with Dr. Lex Segovia neurologist. During my history taking patient does appear to be somewhat distant and not able to come off with clear-cut answers. Denies any change in speech, headache, vision changes, focal weakness or trouble walking or swallowing. Review of systems: GEN.: None EYES: None HEENT: None NECK: None RESPIRATORY: None CARDIOVASCULAR: None GASTROINTESTINAL: None GENITOURINARY: None MUSCULOSKELETAL: Joint pains LYMPHATICS: None HEMATOLOGICAL: None PSYCHIATRY: None NEUROLOGICAL: Forgetful Past medical history to include: Hyperlipidemia, osteoarthritis, hypothyroid, glaucoma, macular degeneration, stroke in 1997, TIA in 2011 detached retina repair, artery in the groin 99% blocked that was cleaned out, anxiety depression Social history: . Smoked for 28 years 1 pack a day stopped in 1993. No alcohol. Physical examination: VITAL SIGNS: 98.6, 79, 20, 135/77, 99% on room air GENERAL: BMI 31.3, laying in bed, not in distress. EYES: Pupils equal. Conjunctiva normal. HEENT: External appearance of nose and ears normal, oral cavity grossly normal. NECK: JVD not raised; masses not palpable. HEART: First and second heart sounds are normal; no edema. LUNGS: Respiratory rate normal; clear to auscultation. ABDOMEN: Soft, nontender, liver spleen not palpable, no masses palpable. PSYCH: Patient is awake no slow to answer questionsl MUSCULAR skeletal: Evidence of OA. NEUROLOGICAL: Cranial nerves grossly intact; no facial asymmetry, power and sensation grossly intact. Some impairment of higher functions in terms of memory recall LYMPHATICS: No lymph nodes palpable in the axilla and neck INVESTIGATIONS, reviewed in the clinical context: WBC 8.5 hemoglobin 14.1 platelets-and Metro platelet agglutination Urine drug screen: Negative Coronavirus [PCR]: Not detected EKG tracing personally reviewed by me-normal sinus rhythm with some ST segment depression in inferior leads Chest x-ray film personally reviewed by me-mild hyperinflation Computed tomography scan of the brain without contrast: Old right frontal lobe infarct. Cerebral atrophy. MRI of the brain: Audible small acute infarcts in the right temporal occipital white matter likely secondary to shower emboli. Moderate multifocal chronic i schemic white matter changes and report changes Assessment and plan: -Acute stroke, with evidence of shower emboli affecting the right temporal and occipital white matters. Patient will need SHERRI. Currently on aspirin and Plavix. Lipitor. -Moderate cognitive impairment, likely from previous strokes/multi infarct dementia -Hypothyroid Continue Synthroid -Hyperlipidemia Continue Lipitor -Depression and anxiety not otherwise specified Continue Celexa and Abilify -DVT prophylaxis On Lovenox Neurology was consulted. Home medications resumed. On aspirin and Plavix. Patient had a carotid Doppler, 2-D echo, consultation with cardiology for SHERRI. Currently no family members at the bedside. Given the complexity and severity of patient's condition expect the patient to be in the hospital at least for 2 overnights -Obesity BMI 31.3 Past Medical History Past Medical History: CVA/TIA, Hyperlipidemia, Osteoarthritis (OA), Skin Disorder, Thyroid Disorder Additional Past Medical History / Comment(s): states was being treated for rash, legs, arms, back but is not currently, HX OF COLON POLYP, glaucoma, macular degeneration, CVA 1998 and TIA 2011 History of Any Multi-Drug Resistant Organisms: None Reported Past Surgical History: Joint Replacement, Orthopedic Surgery Additional Past Surgical History / Comment(s): cyst removed left ovary, detached retina repair, artery in groin 99% blocked "cleaned out", sinus surgery 2001, bilat hip replacement 2005 and 2013, cataract surgery sarina, hx of sciatic nerve block Past Anesthesia/Blood Transfusion Reactions: No Reported Reaction Past Psychological History: Anxiety, Depression Smoking Status: Former smoker Past Alcohol Use History: None Reported Additional Past Alcohol Use History / Comment(s): quit smoking 1993 smoked 28 years 1ppd Past Drug Use History: None Reported - Past Family History Brother(s) Family Medical History: Cancer Additional Family Medical History / Comment(s): pancreatic Sister(s) Family Medical History: Cancer, Myocardial Infarction (OR) Additional Family Medical History / Comment(s): skin cancer and cervical cancer Father Family Medical History: Coronary Artery Disease (CAD) Medications and Allergies Home Medications Medication Instructions Recorded Confirmed Type Citalopram Hydrobromide [CeleXA] 40 mg PO DAILY 08/24/15 08/06/20 History Atorvastatin [Lipitor] 80 mg PO HS 06/11/18 08/06/20 History Levothyroxine Sodium [Synthroid] 75 mcg PO DAILY 01/22/20 08/06/20 History ALPRAZolam [Xanax] 0.5 mg PO BID PRN 02/29/20 08/06/20 History ARIPiprazole [Abilify] 2 mg PO DAILY 05/06/20 08/06/20 History Allergies Allergy/AdvReac Type Severity Reaction Status Date / Time No Known Allergies Allergy Verified 08/06/20 20:27 Physical Exam Vitals: Vital Signs Temp Pulse Pulse Resp BP BP Pulse Ox 08/07/20 14:00 63 18 08/07/20 13:58 97.5 F L 63 18 145/78 100 08/07/20 08:11 98.1 F 67 18 132/75 98 08/07/20 02:00 97.9 F 62 18 115/69 98 08/06/20 23:15 98.0 F 70 18 124/67 98 08/06/20 20:43 72 18 152/98 100 08/06/20 18:10 98.6 F 79 20 135/77 99 Intake and Output 08/07/20 08/07/20 08/07/20 06:59 14:59 22:59 Other: Voiding Method Toilet # Voids 1 4 Weight 90.718 kg Results CBC & Chem 7: 08/06/20 19:57 08/06/20 19:57 Labs: Abnormal Lab Results - Last 24 Hours (Table) 08/06/20 08/06/20 08/06/20 Range/Units 19:57 19:57 19:57 PT 14.5 H (9.0-12.0) sec INR 1.4 H (<1.2) BUN 19 H (7-17) mg/dL Glucose 105 H (74-99) mg/dL Urine Appearance Cloudy H (Clear) Urine Protein Trace H (Negative) Calcium Oxalate Crystal Moderate H (None) /hpf Urine Bacteria Rare H (None) /hpf Hyaline Casts 3 H (0-2) /lpf Urine Mucus Occasional H (None) /hpf Thrombosis Risk Factor Assmnt - Choose All That Apply Each Factor Represents 1 point: Obesity (BMI >25) Each Risk Factor Represents 2 Points: Age 61-74 years Thrombosis Risk Factor Assessment Total Risk Factor Score: 3 Thrombosis Risk Factor Assessment Level: Moderate Risk
--- NOTE | 2020-08-07 17:28 | CT ---
EXAMINATION TYPE: CT angio head neck DATE OF EXAM: 08/07/2020 COMPARISON: None HISTORY: Weakness CT DLP: 380.1 mGycm Automated exposure control for dose reduction was used. CONTRAST: Performed with IV Contrast, patient injected with 65 mL of Isovue 370. There are 3-D post processed images. Images obtained from the aortic arch to the vertex of the brain with IV contrast. There is normal branching pattern of the great vessels on the aortic arch. There is arterial flow in both subclavian arteries. There is arterial flow in the common internal and external carotid arteries bilaterally. There is wide patency of the carotid artery bifurcations. No significant plaque seen. T here is arterial flow in both vertebral arteries. Right vertebral artery much larger than the left. T here is no evidence of carotid or vertebral artery aneurysm or dissection. There is arterial flow in the vertebrobasilar artery system. There is arterial flow in the anterior middle and posterior cerebral arteries. There is no mass effec t. There is no evidence of intracranial aneurysm or neovascularity. I see no evidence of intracranial hemodynamic stenosis. There is normal enhancement of the venous sinuses. IMPRESSION: Negative CT angiogram of the neck. Negative CT angiogram of the brain. Old right posterior frontal encephalomalacia noted which is stabl e compared to yesterday.
--- NOTE | 2020-08-07 17:31 | ECHOF ---
Referral Reason:STROKE. Perform with bubble study MEASUREMENTS -------- HEIGHT: 170.2 cm WEIGHT: 90.7 kg BP: 145/78 RVIDd: 2.8 cm (< 3.3) IVSd: 1.2 cm (0.6 - 1.1) LVIDd: 3.9 cm (3.9 - 5.3) LVPWd: 1.1 cm (0.6 - 1.1) IVSs: 1.5 cm LVIDs: 2.9 cm LVPWs: 1.5 cm LA Diam: 3.2 cm (2.7 - 3.8) Ao Diam: 2.8 cm (2.0 - 3.7) AV Cusp: 2.0 cm (1.5 - 2.6) MV EXCURSION: 16.638 mm (> 18.000) MV EF SLOPE: 89 mm/s (70 - 150) EPSS: 1.0 cm MV E Michael: 0.71 m/s MV DecT: 381 ms MV A Michael: 1.02 m/s MV E/A Ratio: 0.69 RAP: 5.00 mmHg RVSP: 32.66 mmHg FINDINGS -------- Sinus rhythm. This was a technically adequate study. The left ventricular size is normal. There is borderline concentric left ventricular hypertrophy. Overall left ventricular systolic function is normal with, an EF between 55 - 60 %. The right ventricle is normal in size. The left atrium is normal in size. The right atrial size is normal. Contrast study was performed with 2 iv injections of 8 ccs of agitated normal saline, at rest, and wi th cough. Negative saline bubble study. No PFO noted There is mild aortic valve sclerosis. The mitral valve leaflets are mildly thickened. [id number] mitral regurgitation is present. The tricuspid valve appears structurally normal. Mild tricuspid regurgitation present. Right vent ricular systolic pressure is normal at < 35 mmHg. The pulmonic valve was not well visualized. The aortic root size is normal. Normal inferior vena cava with normal inspiratory collapse consistent with estimated right atrial pre ssure of 5 mmHg. There is no pericardial effusion. CONCLUSIONS -------- 1. There is borderline concentric left ventricular hypertrophy. 2. Overall left ventricular systolic function is normal with, an EF between 55 - 60 %. 3. The left atrium is normal in size. 4. Contrast study was performed with 2 iv injections of 8 ccs of agitated normal saline, at rest, and with cough. 5. Negative saline bubble study. No PFO noted 6. There is mild aortic valve sclerosis. 7. [id number] mitral regurgitation is present. 8. Mild tricuspid regurgitation present. 9. There is no pericardial effusion. ASSISTANT PRODUCTION EDITOR: Dina Ellison RDCS
[2020-08-07] MEDS: ATORVASTATIN 80 MG TAB PO SCH (20:24)
--- NOTE | 2020-08-07 20:29 | CONS ---
CONSULTATION Mrs. Barnett is a 74-year-old female who presented to the emergency room with a change in the mental status. She had evidence of confusion. She was evaluated by Dr. Mann from the Neurology service and underwent a brain MRI that showed multiple small infarct of the right temporal occipital area with mild multifocal chronic ischemic changes in the white matter. The patient has been followed by Dr. Jay in the past. According to her, she denies any history of cardiac disease. She has underwent a myocardial perfusion imaging in 2018 that revealed fixed inferior wall defect with normal gated SPECT images. At the same time, an echocardiogram was performed that showed preserved ventricular size and systolic function with mild mitral and tricuspid regurgitation. The patient denies any symptoms of chest pain. She denies any dizziness or palpitation. There is no documentation of atrial fibrillation. She has history of peripheral vascular disease with iliac disease. She is awake but confused. She denies any dyspnea. She denies any chest pain. She denies any dizziness or syncope. Her coronary risk factors are remarkable for hyperlipidemia. No history of diabetes. She is a nonsmoker. MEDICATION: Her medications at home include: Lipitor 80 mg daily, Abilify, Xanax, Celexa and Synthroid. REVIEW OF SYSTEMS: Limited but according to the patient, she has no dyspnea on exertion. No cough or fever. She denies any nausea or vomiting. No GI bleeding. system: No dysuria or hematuria. Cardiology consultation was requested for possible SHERRI. The patient has underwent a transthoracic echocardiogram with bubble study revealed no evidence of shunting. PHYSICAL EXAMINATION: She is a 74-year-old female, alert, no apparent distress. Blood pressure 132/70 with a heart rate in the 60s. HEAD: Normocephalic. Eyes sclerae anicteric. NECK: Good upstroke. No bruit. No jugular venous distention. LUNGS: Clear to auscultation. HEART: Regular rate and rhythm S1, S2. No S3. No S4. No murmur or rub. ABDOMEN: Soft, nontender. Positive bowel sounds. No organomegaly. EXTREMITIES: No edema. Intact distal pulses. LAB DATA: Lab data revealed BUN and creatinine 19 and 0.97, potassium 4.1, hemoglobin 14.1. EKG revealed a sinus mechanism, normal axis and intervals, cannot exclude inferior myocardial infarction. IMPRESSION: 1. Change in mental status with abnormal brain MRI consistent with multiple embolic phenomena, rule out cardiac source, although the patient is in sinus mechanism and there is no evidence of shunting by transthoracic echocardiogram. 2. History of hyperlipidemia. 3. Change in mental status. Workup in progress. 4. Hypothyroidism. RECOMMENDATIONS: From the cardiac standpoint, I discussed the findings with the patient as well as nursing staff. They will check with Dr. Mann and discussed with the patient the transesophageal echocardiogram. If the patient is still in the hospital, we can proceed with that on Sunday. Otherwise, she can be discharged home and follow up with Dr. Jay and that can be scheduled as an outpatient. Thank you for this consult. We will follow with you. MMODL / IJN: [id number] /
[2020-08-07 22:14] LABS: Chol/HDL Ratio 3.94; LDL Cholesterol,Calculated 165.2 mg/dL (0.0-131.0); VLDL Calculation 34.8 mg/dL (5.00-40.00)
[2020-08-07 22:37] LABS: Folate, Serum 11.1 ng/mL
[2020-08-08] MEDS: LEVOTHYROXINE 75 MCG TAB PO SCH (06:24)
[2020-08-08] MEDS: ASPIRIN 81 MG PO SCH (08:51)
[2020-08-08] MEDS: CLOPIDOGREL 75 MG TAB PO SCH (08:51)
[2020-08-08] MEDS: CITALOPRAM HYDROBROMIDE 20 MG TAB PO SCH (08:51)
[2020-08-08] MEDS: ENOXAPARIN 40 MG/0.4 ML SYRINGE SQ SCH (08:51)
--- NOTE | 2020-08-08 10:55 | P.PN ---
Subjective Progress Note Date: 08/08/20 The patient seen at bedside and she stated that she feels about the same today compared to yesterday. Denies of any new weakness, numbness, visual disturbance or difficulty getting her words out. CT angiography of the head and neck it is reported as negative CT angiography of the neck as well as the brain. It shows old right posterior frontal encephalomalacia noted which is stable compared to yesterday. 2-D echo was reported as borderline concentric left ventricular hypertrophy. Overall left ventricle systolic function is normal with ejection fraction of 55- 60%. Left atrium is normal size. Contrast study was performed with 2 IV injection of 8 mL of atrophy normal saline arrest with normal cough. Negative saline bubble study. No PFO noted. Mild to moderate mitral regurgitation is present. Vitamin B12 is 507 which is considered normal. Also full at level is 11.1 which is also considered normal. TSH is 6.50 which is considered elevated and pending the free T4. Objective - Vital Signs Vital signs: Vital Signs Temp 98.3 F 08/08/20 08:00 Pulse 74 08/08/20 08:00 Resp 18 08/08/20 08:00 BP 120/58 08/08/20 08:00 Pulse Ox 96 08/08/20 08:00 Intake & Output 08/07/20 08/08/20 08/08/20 18:59 06:59 18:59 Intake Total 10 240 Balance 10 240 Weight 57.3 kg Intake: IV 10 Invasive Line 1 10 Oral 240 Other: Voiding Method Toilet Toilet Toilet # Voids 4 1 - Exam GENERAL: The patient is an obese lady, lying in bed and is not in acute distress. NEUROLOGICAL: Higher mental function: The patient is awake, alert, oriented to self, place and time. Patient is following commands. No aphasia and no neglect. Cranial nerves: The pupils are round, equal and reactive to light and accommodation. Visual ruiz are full to confrontation throughout. Extraocular movement is intact no nystagmus is noted. Facial sensation is normal to touch throughout. The facial strength is normal throughout. Hearing is normal bilaterally to hand rub. Tongue is midline and moved [id number] without any difficulty. She has some repeated movement of stick her tongue out and seems chewing movement (seem oral automatism). No dysarthria is noted. Shoulder shrug is normal bilaterally. Motor: Gait is normal with normal arm swings. The strength is 5 over 5 throughout. Normal tone and bulk. Cerebellum: Normal finger to nose heel to parrish bilaterally. Sensation: Sensation is normal to touch throughout. Reflexes (right/left)2+ throughout uppers. Patellar are 3+ bilaterally and ankles are 1+ bilaterally.. Plantars are downgoing bilaterally. - Labs CBC & Chem 7: 08/06/20 19:57 08/06/20 19:57 Labs: Abnormal Lab Results - Last 24 Hours (Table) 08/06/20 08/06/20 Range/Units 19:57 19:57 Triglycerides 174.0 H (0.0-149.0) mg/dL Cholesterol 268 H (0-200) mg/dL LDL Cholesterol, Calc 165.2 H (0.0-131.0) mg/dL HDL Cholesterol 68.0 H (40.0-60.0) mg/dL TSH 6.500 H (0.350-5.500) uIU/mL Assessment and Plan Assessment: Acute ischemic stroke (right temporal/occipital). Seems embolic. Altered mental status. Per she has been forgetful in paying bills and misplacing things in the past couple months. Rule out Cognitive impairement/dementia vs pseudodementia. Old right posterior frontal stroke (about 20 years ago). Hyperlipidemia Hypothyroid him History of bilateral hip replacement History of sciatic nerve block Plan: * CT of the head is reported as old right frontal lobe infarct. Cerebral atrophy. No change compared to old exam and the old exam was on 05/06/2020. Upon reviewing prior CT reports it is mentioned that the patient had that this finding the as far back in our reports in 2014 of old right posterior frontal stroke. * MRI the brain is reported as multiple small acute infarct in the right temporal occipital white matter likely secondary to shower emboli. Moderate multifocal chronic ischemic white matter changes and remote white matter infarct in the right parietal white matter. Moderate generalized atrophy. * CT angiography of the head and neck it is reported as negative CT angiography of the neck as well as the brain. It shows old right posterior frontal encephalomalacia noted which is stable compared to yesterday. * 2-D echo was reported as borderline concentric left ventricular hypertrophy. Overall left ventricle systolic function is normal with ejection fraction of 55-60%. Left atrium is normal size. Contrast study was performed with 2 IV injection of 8 mL of atrophy normal saline arrest with normal cough. Negative saline bubble study. No PFO noted. Mild to moderate mitral regurgitation is present. * Vitamin B12 is 507 which is considered normal. Also full at level is 11.1 which is also considered normal. * Continue aspirin 81 mg daily and Plavix 75mg daily for 21 days. After 21 days discontinue ASA 81mg but indefinetely continue Plavix 75mg daily. Continue Lipitor 80 mg qhs for secondary stroke prophylaxis. * TSH is 6.50 which is considered elevated and pending the free T4. * Pending routine EEG which likely would not be done tomorrow. * Consulted physical therapy and occupational therapy * Continue Q4 hours neuro checks and continous cardiac monitoring. * Consulted Cardiology for SHERRI. To be done this coming up Sunday. I ordered an event monitor. * Patient oral automatism possibly could be due to her medication effect she is on Abilify, Celexa. She denies having history of seizures in the past. She was a hold off the on any seizures even though she has a history of a frontal encephalomalacia which possibly can increase risk of seizure. * Will defer further work-up to the primary team. * I recommend the patient to have a neuropsych evaluation regarding her memory evaluation as an outpatient. * The patient needs to follow-up with her neurologist (Dr. Frankie Wells) within 1-2 weeks as an outpatient The plan is discussed with the patient, and her nurse. Chris Mann M.D. Neuro-hospitalist Time with Patient: Less than 30
[2020-08-08] MEDS: ARIPiprazole 2 MG TAB PO SCH (10:59)
--- NOTE | 2020-08-08 12:15 | PN ---
PROGRESS NOTE Ms. Barnett is a 74-year-old female who presented with symptoms of progressive confusion, was seen by Dr. Mann from the Neurology service and was felt to have multiple embolic phenomena to the brain. In view of that, recommendations were made regarding transesophageal echocardiogram. She had a transthoracic echocardiogram that revealed no evidence of shunting. She continues to be in sinus mechanism. Hemodynamically, she is stable. She continues to be, at this time on aspirin and Abilify, Lipitor 80 mg daily, Celexa, Plavix 75 mg daily, Lovenox subcu. PHYSICAL EXAMINATION: Blood pressure 122/60 with a heart rate in the 70s. LUNGS: Clear. Heart regular rate and rhythm S1, S2. No S3. No rub. ABDOMEN: Soft and nontender. EXTREMITIES: No edema. IMPRESSION: 1. Change in mental status with possible embolic phenomenon on the MRI. 2. History of hyperlipidemia. 3. Hypothyroidism. RECOMMENDATIONS: I will discuss the case with her over the phone. I discussed with him the recommendation regarding transesophageal echocardiogram. He is in agreement with that. I have discussed with the patient as well. The plan is to proceed with transesophageal echocardiogram tomorrow to further guide her treatment and prognosis. MMODL / IJN: [id number] /
--- NOTE | 2020-08-08 16:30 | P.PN ---
Progress Note - Text Progress Note Date: 08/08/20 Chief Complaint: Increasing confusion History of presenting complaint: This is a 74-year-old patient follows with Dr. Dempsey. Chronic stable medical conditions include osteoarthritis, hypothyroid, glaucoma, macular degeneration with a prior history of stroke in 1997 and a TIA in 2011., Anxiety depression. History is obtained by the ER notes nurses and neurology. Patient presented to the ER with symptoms starting a day prior with altered mental status. Also per the patient for last couple of months has been forgetful and forgetting to pay the bills and misplacing things. Example not finding her glasses are for recently. Denies weakness. No focal neurological symptoms are reported. She does follow with Dr. Lex Segovia neurologist. During my history taking patient does appear to be somewhat distant and not able to come off with clear-cut answers. Denies any change in speech, headache, vision changes, focal weakness or trouble walking or swallowing. Admitted with:-Acute stroke, with evidence of shower emboli affecting the right temporal and occipital white matters. On the MRi. Today: Laying in bed. Pending SHERRI by cardiology. Oral intake fair. No new issues. Review of systems: Was done for constitutional, cardiovascular, GI, pulmonary. relevant finding as above Active Medications Alprazolam (Alprazolam 0.5 Mg Tab) 0.5 mg PO BID PRN PRN Reason: Anxiety Aripiprazole (Aripiprazole 2 Mg Tab) 2 mg PO DAILY [facility] Last Admin: 08/08/20 10:59 Dose: 2 mg Documented by: Aspirin (Aspirin 81 Mg) 81 mg PO DAILY [facility] Last Admin: 08/08/20 08:51 Dose: 81 mg Documented by: Atorvastatin Calcium (Atorvastatin 80 Mg Tab) 80 mg PO HS [facility] Last Admin: 08/07/20 20:24 Dose: 80 mg Documented by: Citalopram Hydrobromide (Citalopram Hydrobromide 20 Mg Tab) 40 mg PO DAILY [facility] Last Admin: 08/08/20 08:51 Dose: 40 mg Documented by: Clopidogrel Bisulfate (Clopidogrel 75 Mg Tab) 75 mg PO DAILY [facility] Last Admin: 08/08/20 08:51 Dose: 75 mg Documented by: Enoxaparin Sodium (Enoxaparin 40 Mg/0.4 Ml Syringe) 40 mg SQ DAILY [facility] Last Admin: 08/08/20 08:51 Dose: Not Given Documented by: Levothyroxine Sodium (Levothyroxine 75 Mcg Tab) 75 mcg PO DAILY@0630 [facility] Last Admin: 08/08/20 06:24 Dose: 75 mcg Documented by: Naloxone HCl (Naloxone 0.4 Mg/Ml 1 Ml Vial) 0.2 mg IV Q2M PRN PRN Reason: Opioid Reversal Past medical history to include: Hyperlipidemia, osteoarthritis, hypothyroid, glaucoma, macular degeneration, stroke in 1997, TIA in 2011 detached retina repair, artery in the groin 99% blocked that was cleaned out, anxiety depression Social history: . Smoked for 28 years 1 pack a day stopped in 1993. No alcohol. Physical examination: VITAL SIGNS: 98.4, 70, 16, 122/62, 97% room air GENERAL: Laying in bed, comfortable EYES: Pupils equal. Conjunctiva normal. NECK: JVD not raised; masses not palpable. HEART: First and second heart sounds are normal; no edema. LUNGS: Respiratory rate normal; clear to auscultation. ABDOMEN: Soft, nontender, liver spleen not palpable, no masses palpable. PSYCH: Patient is awake no slow to answer questionsl MUSCULAR skeletal: Evidence of OA. NEUROLOGICAL: Cranial nerves grossly intact; no facial asymmetry, power and sensation grossly intact. impairment of higher functions in terms of memory recall INVESTIGATIONS, reviewed in the clinical context: LDL 165 B12 507 folate 11 TSH 6.5 WBC 8.5 hemoglobin 14.1 platelets-and Metro platelet agglutination Urine drug screen: Negative Coronavirus [PCR]: Not detected EKG tracing personally reviewed by me-normal sinus rhythm with some ST segment depression in inferior leads Chest x-ray film personally reviewed by me-mild hyperinflation Computed tomography scan of the brain without contrast: Old right frontal lobe infarct. Cerebral atrophy. MRI of the brain: Audible small acute infarcts in the right temporal occipital white matter likely secondary to shower emboli. Moderate multifocal chronic ischemic white matter changes and report changes Assessment and plan: -Acute stroke, with evidence of shower emboli affecting the right temporal and occipital white matters. Pending SHERRI. Currently on aspirin and Plavix. Lipitor. -Moderate cognitive impairment, likely from previous strokes/multi infarct dementia Consult speech for 4 Montral cognitive assessment -Hypothyroid-under replaced Increase dose of Synthroid to 88 g -Hyperlipidemia Continue Lipitor -Depression and anxiety not otherwise specified Continue Celexa and Abilify -DVT prophylaxis On Lovenox -Obesity BMI 31.3 Weight loss measures and follow with PCP Pending SHERRI. Increase Synthroid to 88 g. Other medications to continue. [facility]
[2020-08-08] MEDS: ATORVASTATIN 80 MG TAB PO SCH (20:20)
[2020-08-09] MEDS: LEVOTHYROXINE 88 MCG TAB PO SCH (06:27)
[2020-08-09] MEDS: CITALOPRAM HYDROBROMIDE 20 MG TAB PO SCH (08:20)
[2020-08-09] MEDS: CLOPIDOGREL 75 MG TAB PO SCH (08:20)
[2020-08-09] MEDS: ASPIRIN 81 MG PO SCH (08:20)
[2020-08-09] MEDS: ARIPiprazole 2 MG TAB PO SCH (08:21)
[2020-08-09] MEDS ORDERED: fentaNYL (PF) 50 MCG/ML 2 ML AMP ONE (11:33)
--- NOTE | 2020-08-09 11:49 | EEG ---
ELECTROENCEPHALOGRAM REPORT DATE OF SERVICE: 08/09/2020 This is a 74-year-old woman with altered mental status. This video EEG is obtained to evaluate for seizure and epileptiform activity. RELEVANT MEDICATION: Patient is not on any antiepileptic drugs. EEG TYPE: A routine 21 channel EEG performed with video using the 10/20 electrode placement system. DESCRIPTION: Wakefulness, drowsiness, and sleep stage 2 sleep are seen. During wakefulness, there is a posterior dominant rhythm of low to moderate voltage, reactive, well modulated, of 8.5-9.5 hertz activity. During drowsiness, there is slowing and attenuation of background activity. During stage 2 sleep, there are sleep spindles and K complexes. There is no focal slowing. ACTIVATION PROCEDURE: Photic stimulation did evoke a positive driving response at multiple low flash frequencies. There is no abnormality during photic stimulation. Hyperventilation is not performed. CLINICAL INTERPRETATION: This is a normal routine EEG. There are no focal slowing, epileptiform discharge or seizure during the study. Clinical correlation is recommended. MMJHONATAN / SHAYYN: [id number] / LILY
[2020-08-09] MEDS ORDERED: BENZOCAINE SPRAY 1 CAN MUCOUS MEM ONE (12:00)
[2020-08-09] MEDS ORDERED: SODIUM CHLORIDE 0.9% 1,000 ML IV ONE (12:00)
[2020-08-09] MEDS ORDERED: fentaNYL (PF) 50 MCG/ML 2 ML AMP IV ONE (12:04)
[2020-08-09] MEDS ORDERED: MIDAZOLAM 2 MG/2 ML VIAL IV ONE ×2 (12:04)
--- NOTE | 2020-08-09 12:20 | P.PN ---
Subjective Progress Note Date: 08/09/20 She was seen today at bedside and she stated that she feels about the same today compared to say. She denies of any neurological symptoms. Today she went in for SEHRRI and pending report. Objective - Vital Signs Vital signs: Vital Signs Temp 98.8 F 08/09/20 08:00 Pulse 65 08/09/20 12:16 Resp 16 08/09/20 12:16 BP 130/61 08/09/20 12:16 Pulse Ox 98 08/09/20 12:10 Intake & Output 08/08/20 08/09/20 08/09/20 18:59 06:59 18:59 Intake Total 478 10 Balance 478 10 Weight 55.9 kg Intake: IV 10 Invasive Line 1 10 Oral 478 Other: Voiding Method Toilet Toilet # Voids 3 1 - Exam GENERAL: The patient is an obese lady, lying in bed and is not in acute distress. NEUROLOGICAL: Higher mental function: The patient is awake, alert, oriented to self, place and time. Patient is following commands. No aphasia and no neglect. Cranial nerves: The pupils are round, equal and reactive to light and accommodation. Visual ruiz are full to confrontation throughout. Extraocular movement is intact no nystagmus is noted. Facial sensation is normal to touch throughout. The facial strength is normal throughout. Hearing is normal bilaterally to hand rub. Tongue is midline and moved [id number] without any difficulty. She has some repeated movement of stick her tongue out and seems chewing movement (seem oral automatism). No dysarthria is noted. Shoulder shrug is normal bilaterally. Motor: Gait is normal with normal arm swings. The strength is 5 over 5 throughout. Normal tone and bulk. Cerebellum: Normal finger to nose heel to parrish bilaterally. Sensation: Sensation is normal to touch throughout. Reflexes (right/left)2+ throughout uppers. Patellar are 3+ bilaterally and ankles are 1+ bilaterally.. Plantars are downgoing bilaterally. - Labs CBC & Chem 7: 08/06/20 19:57 08/06/20 19:57 Assessment and Plan Assessment: Acute ischemic stroke (right temporal/occipital). Seems embolic. Altered mental status. Per she has been forgetful in paying bills and misplacing things in the past couple months. Rule out Cognitive impairement/dementia vs pseudodementia. Old right posterior frontal stroke (about 20 years ago). Hyperlipidemia Hypothyroid him History of bilateral hip replacement History of sciatic nerve block Plan: * CT of the head is reported as old right frontal lobe infarct. Cerebral atrophy. No change compared to old exam and the old exam was on 05/06/2020. Upon reviewing prior CT reports it is mentioned that the patient had that this finding the as far back in our reports in 2015 of old right posterior frontal stroke. * MRI the brain is reported as multiple small acute infarct in the right temporal occipital white matter likely secondary to shower emboli. Moderate multifocal chronic ischemic white matter changes and remote white matter infarct in the right parietal white matter. Moderate generalized atrophy. * CT angiography of the head and neck it is reported as negative CT angiography of the neck as well as the brain. It shows old right posterior frontal encephalomalacia noted which is stable compared to yesterday. * 2-D echo was reported as borderline concentric left ventricular hypertrophy. Overall left ventricle systolic function is normal with ejection fraction of 55-60%. Left atrium is normal size. Contrast study was performed with 2 IV injection of 8 mL of atrophy normal saline arrest with normal cough. Negative saline bubble study. No PFO noted. Mild to moderate mitral regurgitation is present. * Vitamin B12 is 507 which is considered normal. Also full at level is 11.1 which is also considered normal. * Continue aspirin 81 mg daily and Plavix 75mg daily for 21 days. After 21 days discontinue ASA 81mg but indefinetely continue Plavix 75mg daily. Continue Lipitor 80 mg qhs for secondary stroke prophylaxis. * TSH is 6.50 which is considered elevated and pending the free T4. * Routine EEG today (Preliminary report): Normal. There are no focal slowing, epileptiform discharges or seizure on the EEG. * Physical therapy and occupational therapy are consulted * Continue Q4 hours neuro checks and continous cardiac monitoring. * Consulted Cardiology for SHERRI. Was done today. Pending report. I ordered an event monitor. * Patient oral automatism possibly could be due to her medication effect she is on Abilify, Celexa. She denies having history of seizures in the past. She was a hold off the on any seizures even though she has a history of a frontal encephalomalacia which possibly can increase risk of seizure. * Will defer further work-up to the primary team. * I recommend the patient to have a neuropsych evaluation regarding her memory evaluation as an outpatient. * The patient needs to follow-up with her neurologist (Dr. Frankie Wells) within 1-2 weeks as an outpatient UPDATE: SHERRI is reported as dilated left atrium with normal appearance of left atrial appendage. Normal left ventricular size and systolic function. Mild prolapse of the posterior mitral valve leaflet with moderate severe eccentric mitral regurgitation. Mild tricuspid regurgitation. Patent foramen ovalve with left to right shunting with no reversal of shunting with Valsalva maneuver and contrast bubble study mild other sclerotic change of the descending thoracic aorta. Regarding this positive PFO 25% of the population has PFO all not sure of the size of the PFO of the PFO is large then would recommend patient to have a closure. I'll defer this discussion the of closure PFO between cardiology and the patient The plan is discussed with the patient and her nurse. There is no further work-up needed. Chris Mann M.D. Neuro-hospitalist Time with Patient: Less than 30
[2020-08-09] MEDS: ENOXAPARIN 40 MG/0.4 ML SYRINGE SQ SCH (12:36)
--- NOTE | 2020-08-09 12:38 | CDI ---
Documentation Clarification Form Date: 08/09/2020 11:30:24 AM From: Natalie Maxwell RN CCDS Admit Date: 08/07/2020 02:13:00 PM Patient Name: Shelia Barnett Visit Number: [id number] Discharge Date: ATTENTION: The Clinical Documentation Specialists (CDI) and [facility] Coding Staff appreciate your assistance in clarifying documentation. Please respond to the clarification below the line at the bottom and electronically sign. The CDI & [facility] Coding staff will review the response and follow-up if needed. Please note: Queries are made part of the Legal Health Record. If you have any questions, please contact the author of this message via ITS. Dr. Sunny Montano Your patient has the documented symptom of Altered Mental Status 08/07 H&P. Additional clarification regarding the etiology/cause of this symptom is requested. History/Risk Factors: 74-year-old female presents to the ED with altered mental status starting a day prior. Medical History: HLD, 28 Year smoking history one pack a day, Stroke 1997 and TIA in 2011. H&P 08/07 Clinical Indicators: Labs 08/07: Triglycerides 174.0; Cholesterol 268; ALY217.2; VLDL Cholesterol 34.80; HDL Cholesterol 68.0. VSS 08/07: B/P 135/77; HR 79; Temp 98.6 Oral F; RR 20; SpO2 99% room air MRI Brain: 08/07 Multiple small acute in the right temporal occipital white matter likely secondary to shower emboli. Moderate multifocal chronic ischemic white matter changes and remote white matter infarct in the right parietal white matter. Moderate generalized atrophy. CT Angiogram Neck 08/07: Negative CT Angiogram Brain 08/07: Negative Treatment: 08/07 Aspirin 81mg PO Daily; 08/08 Plavix 75mg PO Daily; 08/07 Lipitor 80mg PO HS; 08/07 Lovenox 40mg SQ Daily; arotid Doppler; 08/07 MRI Brain. Please clarify the etiology of the symptom of Altered Mental Status: [ ] Metabolic Encephalopathy due to Acute stroke. [ ] Toxic Encephalopathy due to Acute stroke. [ ] Anoxic Encephalopathy due to Acute stroke. [ ] Other condition (please specify) [ ] Unable to determine (Template Last Revised: April 2020) No further change in documentation. Please see discharge summary MTDD
--- NOTE | 2020-08-09 14:00 | ECHOT ---
TRANSESOPHAGEAL ECHOCARDIOGRAM TRANSESOPHAGEAL ECHOCARDIOGRAM: INDICATION: Evaluation of intracardiac etiology for CVA. PROCEDURE: After explaining the procedure to the patient, risks and the complications, blood pressure, heart rate, O2 saturation was monitored. The throat was sprayed with Cetacaine. She received 2 mg intravenous Versed, 50 mcg intravenous fentanyl. The probe was introduced in the esophagus without difficulty. Images were obtained. Following that, the probe was removed. There was no immediate complication. FINDINGS: The left atrial size is dilated. Left atrial appendage is normal. Left ventricular size and systolic function normal. The aortic valve appears to be normal. The mitral valve revealed mild thickening of the mitral valve leaflets with mild prolapse of the posterior mitral valve leaflets. The tricuspid valve is normal. Descending thoracic aorta revealed mild atherosclerotic changes. No pericardial effusion was noted contrast bubble study revealed no shunting across the interatrial septum. Doppler pulse wave and color Doppler obtained revealed moderate to severe eccentric mitral regurgitation with mild tricuspid regurgitation. There was evidence of patent foramen ovale with [id number] shunting and no reversal flow. CONCLUSION: 1. Dilated left atrium with normal appearance left atrial appendage. 2. Normal left ventricular size and systolic function. 3. Mild prolapse of the posterior mitral valve leaflets with moderate severe eccentric mitral regurgitation. 4. Mild tricuspid regurgitation. 5. Patent foramen ovale with [id number] shunting with no reversal of shunting with Valsalva maneuver and contrast bubble study. 6. Mild atherosclerotic changes of the descending thoracic aorta. MMODL / IJN: [id number] /
[2020-08-09] MEDS: SODIUM CHLORIDE 0.9% 1,000 ML IV SCH (15:16)
[2020-08-09] MEDS: ATORVASTATIN 80 MG TAB PO SCH (21:13)
--- NOTE | 2020-08-09 23:22 | P.PN ---
Progress Note - Text Progress Note Date: 08/09/20 Chief Complaint: Increasing confusion History of presenting complaint: This is a 74-year-old patient follows with Dr. Dempsey. Chronic stable medical conditions include osteoarthritis, hypothyroid, glaucoma, macular degeneration with a prior history of stroke in 1997 and a TIA in 2011., Anxiety depression. History is obtained by the ER notes nurses and neurology. Patient presented to the ER with symptoms starting a day prior with altered mental status. Also per the patient for last couple of months has been forgetful and forgetting to pay the bills and misplacing things. Example not finding her glasses are for recently. Denies weakness. No focal neurological symptoms are reported. She does follow with Dr. Lex Segovia neurologist. During my history taking patient does appear to be somewhat distant and not able to come off with clear-cut answers. Denies any change in speech, headache, vision changes, focal weakness or trouble walking or swallowing. Admitted with:-Acute stroke, with evidence of shower emboli affecting the right temporal and occipital white matters. On the MRi. Today: SHERRI: Negative for any thrombus. Care was discussed with Dr. Mann from neurology. Also discussed with Dr. Watkins from cardiology. Given that patient has had multiple areas of suspected embolization and a prior history of anterior circulation embolization or frontal lobe, is a patient is a candidate for anticoagulation. It is felt that patient can follow up with a neurologist and didn't take a further decision about the same. In the meantime patient will be kept on aspirin and Plavix. Nurse called but that patient has a report suggestive of subclavian steal syndrome and the report is being requested. Patient also underwent the Montral assessment test today. That showed mild cognitive impairment. Higher functioning level testing showed some limitation of financial calculation limitations.. Review of systems: Was done for constitutional, cardiovascular, GI, pulmonary. relevant finding as above Active Medications Alprazolam (Alprazolam 0.5 Mg Tab) 0.5 mg PO BID PRN PRN Reason: Anxiety Aripiprazole (Aripiprazole 2 Mg Tab) 2 mg PO DAILY [facility] Last Admin: 08/09/20 08:21 Dose: 2 mg Documented by: Aspirin (Aspirin 81 Mg) 81 mg PO DAILY [facility] Last Admin: 08/09/20 08:20 Dose: 81 mg Documented by: Atorvastatin Calcium (Atorvastatin 80 Mg Tab) 80 mg PO HS [facility] Last Admin: 08/09/20 21:13 Dose: 80 mg Documented by: Citalopram Hydrobromide (Citalopram Hydrobromide 20 Mg Tab) 40 mg PO DAILY [facility] Last Admin: 08/09/20 08:20 Dose: 40 mg Documented by: Clopidogrel Bisulfate (Clopidogrel 75 Mg Tab) 75 mg PO DAILY [facility] Last Admin: 08/09/20 08:20 Dose: 75 mg Documented by: Enoxaparin Sodium (Enoxaparin 40 Mg/0.4 Ml Syringe) 40 mg SQ DAILY [facility] Last Admin: 08/09/20 12:36 Dose: Not Given Documented by: Sodium Chloride (Saline 0.9%) 1,000 mls @ 20 mls/hr IV .Q24H [facility] Last Admin: 08/09/20 15:16 Dose: Not Given Documented by: Levothyroxine Sodium (Levothyroxine 88 Mcg Tab) 88 mcg PO DAILY@0630 [facility] Last Admin: 08/09/20 06:27 Dose: 88 mcg Documented by: Naloxone HCl (Naloxone 0.4 Mg/Ml 1 Ml Vial) 0.2 mg IV Q2M PRN PRN Reason: Opioid Reversal Past medical history to include: Hyperlipidemia, osteoarthritis, hypothyroid, glaucoma, macular degeneration, stroke in 1997, TIA in 2011 detached retina repair, artery in the groin 99% blocked that was cleaned out, anxiety depression Social history: . Smoked for 28 years 1 pack a day stopped in 1993. No alcohol. Physical examination: VITAL SIGNS: 59, 18, 120/69, 96% room air GENERAL: Laying in bed, comfortable EYES: Pupils equal. Conjunctiva normal. NECK: JVD not raised; masses not palpable. HEART: First and second heart sounds are normal; no edema. LUNGS: Respiratory rate normal; clear to auscultation. ABDOMEN: Soft, nontender, liver spleen not palpable, no masses palpable. PSYCH: Patient is awake no slow to answer questionsl MUSCULAR skeletal: Evidence of OA. NEUROLOGICAL: Cranial nerves grossly intact; no facial asymmetry, power and sensation grossly intact. impairment of higher functions in terms of memory recall INVESTIGATIONS, reviewed in the clinical context: Montral cognitive assessment: Showing mild cognitive-and linguistic deficit. Unknown standardize comprehensive evaluation speech language and cognition was also done: Patient had impaired abilities in the cognitive linguistic domains of short-term and delayed recall and moderate level mental manipulation. It was recommended for the spouse and the patient to complete financial compliance examiner and medication management test together to ensure accuracy. LDL 165 B12 507 folate 11 TSH 6.5 WBC 8.5 hemoglobin 14.1 platelets-and Metro platelet agglutination Urine drug screen: Negative Coronavirus [PCR]: Not detected EKG tracing personally reviewed by me-normal sinus rhythm with some ST segment depression in inferior leads Chest x-ray film personally reviewed by me-mild hyperinflation Computed tomography scan of the brain without contrast: Old right frontal lobe infarct. Cerebral atrophy. MRI of the brain: Audible small acute infarcts in the right temporal occipital white matter likely secondary to shower emboli. Moderate multifocal chronic ischemic white matter changes and report changes Assessment and plan: -Acute stroke, with evidence of shower emboli affecting the right temporal and occipital white matters. . Currently on aspirin and Plavix. Lipitor. 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 Based on comprehensive assessment and Montral cognitive assessment testing Financial and medication management to be done along with the spouse -Hypothyroid-under replaced Increase dose of Synthroid to 88 g -Hyperlipidemia Continue Lipitor -Depression and anxiety not otherwise specified Continue Celexa and Abilify -DVT prophylaxis On Lovenox -Obesity BMI 31.3 Weight loss measures and follow with PCP We will await report from Dr. Acosta office. Discharge been held for today. Discussions held today were as above. Also discussed with the therapist. Total time spent today was about 1 hour with over 40 minutes of discussion.
[2020-08-10] MEDS: LEVOTHYROXINE 88 MCG TAB PO SCH (06:46)
[2020-08-10] MEDS: ASPIRIN 81 MG PO SCH (09:12)
[2020-08-10] MEDS: CITALOPRAM HYDROBROMIDE 20 MG TAB PO SCH (09:12)
[2020-08-10] MEDS: ARIPiprazole 2 MG TAB PO SCH (09:12)
[2020-08-10] MEDS: CLOPIDOGREL 75 MG TAB PO SCH (09:13)
[2020-08-10] MEDS: ENOXAPARIN 40 MG/0.4 ML SYRINGE SQ SCH (09:13)
--- NOTE | 2020-08-10 11:10 | P.GSCN ---
History of Present Illness Consult date: 08/10/20 Reason for Consult: possible subclavian steel syndrome Requesting physician: Chris Mann History of present illness: This is a 74-year-old woman with medical history of prior stroke (20 years ago), TIA's, hyperlipidemia, hypothyroidism, bilateral hip replacement, sciatic nerve block and depression who presented emergency department on 08/06/2020 for confusion. Per the ED note it seems that the patient's onset of symptoms was the day prior to presenting the hospital and she's been forgetful regarding things. Patient also has been having generalized weakness. Patient denies of any focal weakness, any numbness, any visual disturbance, a difficulty swallowing, any difficulty getting her words out. She reports she is right hand dominant and does not have any pain or difficulty of use of her left hand or arm. Patient stated that she had a stroke about 20 years ago but does not recall the details of her stroke. She is on aspirin and Plavix and statin at home and follows with Dr. Wells for neurological care. She has a past history of a left carotid endarterectomy she states years ago. Bedside blood pressure left upper extremity 129/73, right upper extremity 123/74. He is currently denying any focal deficits and just states that she feels weak and tired. She currently denies any headache, nausea, vomiting, shortness breath or chest pain. She states she has been getting up to the bathroom by herself. Some of the workup in the hospital consisted of: CT of the head is reported as old right frontal lobe infarct. Cerebral atrophy. No change compared to old exam and the old exam was on 05/06/2020. Upon reviewing prior CT reports it is mentioned that the patient had that this finding the as far back in our reports in 2015 of old right posterior frontal stroke. EKG is reported as normal sinus rhythm. Cannot rule out inferior infarct, age undetermined. Abnormal EKG. CT angiogram of head and neck was negative CTA of neck and negative CTA of brain. Old right posterior frontal encephalomalacia noted which is stable compared to yesterday. Outside report from [facility] dated 06/25/2020 carotid ultrasound: Duplex evaluation demonstrates no evidence of hemodynamically significant stenosis of the bilateral internal carotid arteries. No intraluminal plaque was visualized in bilateral carotid arteries. Duplex evaluation demonstrates no evidence of hemodynamically significant stenosis of bilateral external carotid arteries. The right vertebral artery is patent with antegrade flow demonstrated. Left vertebral artery is patent. The left vertebral artery waveform demonstrates possible subclavian steal syndrome. Past Medical History Past Medical History: CVA/TIA, Hyperlipidemia, Osteoarthritis (OA), Skin Disorder, Thyroid Disorder Additional Past Medical History / Comment(s): states was being treated for rash, legs, arms, back but is not currently, HX OF COLON POLYP, glaucoma, macular degeneration, CVA 1997 and TIA 2011 History of Any Multi-Drug Resistant Organisms: None Reported Past Surgical History: Joint Replacement, Orthopedic Surgery Additional Past Surgical History / Comment(s): cyst removed left ovary, detached retina repair, artery in groin 99% blocked "cleaned out", sinus surgery 2001, bilat hip replacement 2005 and 2013, cataract surgery sarina, hx of sciatic nerve block Past Anesthesia/Blood Transfusion Reactions: No Reported Reaction Past Psychological History: Anxiety, Depression Smoking Status: Former smoker Past Alcohol Use History: None Reported Additional Past Alcohol Use History / Comment(s): quit smoking 1993 smoked 28 years 1ppd Past Drug Use History: None Reported - Past Family History Brother(s) Family Medical History: Cancer Additional Family Medical History / Comment(s): pancreatic Sister(s) Family Medical History: Cancer, Myocardial Infarction (MD) Additional Family Medical History / Comment(s): skin cancer and cervical cancer Father Family Medical History: Coronary Artery Disease (CAD) Medications and Allergies Home Medications Medication Instructions Recorded Confirmed Type Citalopram Hydrobromide [CeleXA] 40 mg PO DAILY 08/24/15 08/06/20 History Atorvastatin [Lipitor] 80 mg PO HS 06/11/18 08/06/20 History ALPRAZolam [Xanax] 0.5 mg PO BID PRN 02/29/20 08/06/20 History ARIPiprazole [Abilify] 2 mg PO DAILY 05/06/20 08/06/20 History Aspirin 81 mg PO DAILY #30 chew 08/09/20 Rx Clopidogrel [Plavix] 75 mg PO DAILY #30 tab 08/09/20 Rx Levothyroxine Sodium [Synthroid] 88 mcg PO DAILY@0630 #30 tab 08/09/20 Rx Allergies Allergy/AdvReac Type Severity Reaction Status Date / Time No Known Allergies Allergy Verified 08/06/20 20:27 Surgical - Exam Vital Signs Temp Pulse Resp BP Pulse Ox 98.6 F 79 20 135/77 99 08/06/20 18:10 08/06/20 18:10 08/06/20 18:10 08/06/20 18:10 08/06/20 18:10 Results - Labs 08/06/20 19:57 08/06/20 19:57 - Imaging Comments: CT of the head is reported as old right frontal lobe infarct. Cerebral atrophy. No change compared to old exam and the old exam was on 05/06/2020. Upon reviewing prior CT reports it is mentioned that the patient had that this findi ng the as far back in our reports in 2015 of old right posterior frontal stroke. EKG is reported as normal sinus rhythm. Cannot rule out inferior infarct, age undetermined. Abnormal EKG. CT angiogram of head and neck was negative CTA of neck and negative CTA of brain. Old right posterior frontal encephalomalacia noted which is stable compared to yesterday. Outside report from [facility] dated 06/25/2020 carotid ultrasound: Duplex evaluation demonstrates no evidence of hemodynamically significant stenosis of the bilateral internal carotid arteries. No intraluminal plaque was visualized in bilateral carotid arteries. Duplex evaluation demonstrates no evidence of hemodynamically significant stenosis of bilateral external carotid arteries. The right vertebral artery is patent with antegrade flow demonstrated. Left vertebral artery is patent. The left vertebral artery waveform demonstrates possible subclavian steal syndrome. SHERRI: Shows dilated left atrium with normal appearance left atrial appendage. Normal left ventricular size and systolic function. Mild prolapse of the posterior mitral valve leaflets with [id number] eccentric mitral regurgitation. Mild tricuspid regurgitation. Patent Marsh no focal weakness [id number] shunting with no reversal of shunting with Valsalva maneuver and contrast bubble study. Bilateral arthrosclerotic changes of the descending thoracic aorta. Assessment and Plan Assessment: 1. Carotid ultrasound with reports of possible left subclavian steal syndrome 2. Altered mental status, with forgetfulness 3. Weakness 4. Syncope 5. History of right posterior frontal stroke 6. History of left carotid endarterectomy Plan: CT angiogram of head and neck as well as carotid duplex study reviewed from [facility]. Do not believe patient's symptoms are related to subclavian steal syndrome and that this is an incidental finding. Patient may follow-up with vascular surgery on an outpatient basis. No indication for any surgical intervention at this time. Agree with medical management with aspirin, Plavix, and statin. Thank you for this consultation, and allowing us take part in the plan of care of your patient during her hospital stay. The impression and plan of care has been dictated as directed. Dr. Zelaya I performed a history and examination of this patient, discussed the same with the dictator. I agree with the dictator's note ,documented as a scribe. Any additional findings or plans will be noted.
--- NOTE | 2020-08-10 11:28 | P.PN ---
Subjective Progress Note Date: 08/10/20 HISTORY OF PRESENT ILLNESS: Patient examined this morning at the bedside. She denies chest pain or pressure. Denies shortness of breath. She underwent SHERRI yesterday revealing PFO. Patient is currently on aspirin and Plavix. PHYSICAL EXAM: VITAL SIGNS: Reviewed. GENERAL: Well-developed in no acute distress. NECK: Supple. No JVD or thyromegaly LUNGS: Respirations even and unlabored. Lungs essentially clear to auscultation bilaterally. HEART: Regular rate and rhythm. S1 and S2 heard. EXTREMITIES: Normal range of motion. No clubbing or cyanosis. Peripheral pulses intact. No lower extremity edema ASSESSMENT: Acute ischemic stroke Status post SHERRI revealing PFO Altered mental status Hypertension Hyperlipidemia Hypothyroidism PLAN: Continue current cardiac medications Continue aspirin and Plavix. No anticoagulation needed at this time per Dr. Mckeon. Continue telemetry monitoring Patient is stable for discharge from a cardiac standpoint Event monitor has been ordered Patient to follow up outpatient with Dr. Jay Nurse practitioner note has been reviewed by physician. Signing provider agrees with the documented findings, assessment, and plan of care. Objective - Vital Signs Vital signs: Vital Signs Temp 98.2 F 08/10/20 07:55 Pulse 64 08/10/20 07:55 Resp 18 08/10/20 07:55 BP 129/73 08/10/20 08:34 Pulse Ox 92 L 08/10/20 07:55 Intake & Output 08/09/20 08/10/20 08/10/20 18:59 06:59 18:59 Intake Total 570 240 Output Total 300 Balance 270 240 Intake: IV 90 Sodium Chloride 0.9% 1, 40 000 ml @ 20 mls/hr IV . Q24H MAYELA Rx#:[id number] Oral 480 240 Output: Urine 300 Other: Voiding Method Toilet # Voids 1 1 - Labs CBC & Chem 7: 08/06/20 19:57 08/06/20 19:57
[2020-08-10] MEDS: SODIUM CHLORIDE 0.9% 1,000 ML IV SCH (11:35)
--- NOTE | 2020-08-10 12:56 | P.PN ---
Subjective Progress Note Date: 08/10/20 The patient was seen at bedside and she feels about the same today compared to yesterday. I was notified by the nurse yesterday that the patient had the outside report from [facility] for carotid u/s. Dated on 06/25/2020 of carotid ultrasound which demonstrated no evidence of hemodynamically significant stenosis of the bilateral internal carotid artery no intraluminal plaque was visualized and the bio carotid arteries. Duplex of Emily demonstrated no evidence of hemodynamic significant stenosis bilateral external carotid arteries. The right vertebral arteries patent with antegrade flow demonstrated. Left vertebral arteries patent. The left vertebral artery waveform demonstra kenya possible subclavian steal syndrome. Objective - Vital Signs Vital signs: Vital Signs Temp 98.2 F 08/10/20 07:55 Pulse 64 08/10/20 07:55 Resp 18 08/10/20 07:55 BP 129/73 08/10/20 08:34 Pulse Ox 92 L 08/10/20 07:55 Intake & Output 08/09/20 08/10/20 08/10/20 18:59 06:59 18:59 Intake Total 570 240 Output Total 300 Balance 270 240 Intake: IV 90 Sodium Chloride 0.9% 1, 40 000 ml @ 20 mls/hr IV . Q24H MAYELA Rx#:[id number] Oral 480 240 Output: Urine 300 Other: Voiding Method Toilet # Voids 1 1 - Exam GENERAL: The patient is an obese lady, lying in bed and is not in acute distress. NEUROLOGICAL: Higher mental function: The patient is awake, alert, oriented to self, place and time. Patient is following commands. No aphasia and no neglect. Cranial nerves: The pupils are round, equal and reactive to light and accommodation. Visual ruiz are full to confrontation throughout. Extraocular movement is intact no nystagmus is noted. Facial sensation is normal to touch throughout. The facial strength is normal throughout. Hearing is normal bilaterally to hand rub. Tongue is midline and moved [id number] without any difficulty. She has some repeated movement of stick her tongue out and seems chewing movement (seem oral automatism). No dysarthria is noted. Shoulder shr ug is normal bilaterally. Motor: Gait is normal with normal arm swings. The strength is 5 over 5 t hroughout. Normal tone and bulk. Cerebellum: Normal finger to nose heel to parrish bilaterally. Sensation: Sensation is normal to touch throughout. Reflexes (right/left)2+ throughout uppers. Patellar are 3+ bilaterally and ankles are 1+ bilaterally.. Plantars are downgoing bilaterally. - Labs CBC & Chem 7: 08/06/20 19:57 08/06/20 19:57 Assessment and Plan Assessment: Acute ischemic stroke (right temporal/occipital). Seems embolic. Altered mental status. Per she has been forgetful in paying bills and misplacing things in the past couple months. Rule out Cognitive impairement/dementia vs pseudodementia. Old right posterior frontal stroke (about 20 years ago). Has positive PFO (unsure of size). Questionable subclavian steal syndrome (from ultrasound from outside facility) Hyperlipidemia Hypothyroid him History of bilateral hip replacement History of sciatic nerve block Plan: * CT of the head is reported as old right frontal lobe infarct. Cerebral atro phy. No change compared to old exam and the old exam was on 05/06/2020. Upon reviewing prior CT reports it is mentioned that the patient had that this finding the as far back in our reports in 2014 of old right posterior frontal stroke. * MRI the brain is reported as multiple small acute infarct in the right temporal occipital white matter likely secondary to shower emboli. Moderate multifocal chronic ischemic white matter changes and remote white matter infarct in the right parietal white matter. Moderate generalized atrophy. * CT angiography of the head and neck it is reported as negative CT angiography of the neck as well as the brain. It shows old right posterior frontal encephalomalacia noted which is stable compared to yesterday. * 2-D echo was reported as borderline concentric left ventricular hypertrophy. Overall left ventricle systolic function is normal with ejection fraction of 55-60%. Left atrium is normal size. Contrast study was performed with 2 IV injection of 8 mL of atrophy normal saline arrest with normal cough. Negative saline bubble study. No PFO noted. Mild to moderate mitral regurgitation is present. * Vitamin B12 is 507 which is considered normal. Also full at level is 11.1 which is also considered normal. * Routine EEG: Normal. There are no focal slowing, epileptiform discharges or seizure on the EEG. * Continue aspirin 81 mg daily and Plavix 75mg daily for 21 days. After 21 days discontinue ASA 81mg but indefinetely continue Plavix 75mg daily. Continue Lipitor 80 mg qhs for secondary stroke prophylaxis. * TSH is 6.50 which is considered elevated and pending the free T4. * SHERRI is reported as dilated left atrium with normal appearance of left atrial appendage. Normal left ventricular size and systolic function. Mild prolapse of the posterior mitral valve leaflet with moderate severe eccentric mitral regurgitation. Mild tricuspid regurgitation. Patent foramen ovalve with left to right shunting with no reversal of shunting with Valsalva maneuver and contrast bubble study mild other sclerotic change of the descending thoracic a ese. * The primary reach out to me and cardiology regarding the use of anticoagulation. I had a lengthy conversation with the cardiology team and feel anticoagulation as needed at this time. I feel the patient does had an embolic stroke but regarding the use of anticoagulation I would be more incl ined of the placing the patient on anticoagulation if we find that the patient was in atrial fibrillation or had a clots in the heart which the patient the so far the continue his cardiac monitoring was sinus patient does have the PVCs or PACs but otherwise it sinus rhythm and no atrial fibrillation. And the transesophageal echocardiogram does not reveal any blood clots that would be suggestive of anticoagulation. Therefore I'm not inclined of anticoagulation at this time as well. I notified the cardiology team to find out the size of the PFO and if it's large from a neurological standpoint I would recommend close and it. Dr. Mckeon stated he will speak with Dr. Watkins. * Physical therapy and occupational therapy are consulted * Continue Q4 hours neuro checks and continous cardiac monitoring. * Regarding the possible subclavian steal syndrome, vascular surgeon team was consulted. They felt was incidental finding. And the to follow-up with vascular surgery team is a outpatient basis. No indication of surgical intervention this time. * Will defer further work-up to the primary team. * I recommend the patient to have a neuropsych evaluation regarding her memory evaluation as an outpatient. * The patient needs to follow-up with her neurologist (Dr. Frankie Wells) within 1-2 weeks as an outpatient The plan is discussed with the patient and Dr. Mckeon ([place]). There is no further work-up needed. Chris Mann M.D. Neuro-hospitalist Time with Patient: Less than 30
--- NOTE | 2020-08-10 13:14 | US ---
EXAMINATION TYPE: US venous doppler duplex LE BI DATE OF EXAM: 08/10/2020 12:08 PM COMPARISON: NONE CLINICAL HISTORY: stroke. Has PFO.. Patent FO, no symptoms, no h/o dvt, Dr Chris Mann protocol SIDE PERFORMED: Bilateral TECHNIQUE: The lower extremity deep venous system is examined utilizing real time linear array sonog aj with graded compression, doppler sonography and color-flow sonography. VESSELS IMAGED: Common Femoral Vein Deep Femoral Vein Greater Saphenous Vein * Femoral Vein Popliteal Vein Small Saphenous Vein * Proximal Calf Veins (* superficial vessels) Right Leg: Negative for DVT Left Leg: Negative for DVT IMPRESSION: 1. Bilateral Lower extremity ultrasound negative for deep venous thrombosis
--- NOTE | 2020-08-10 13:18 | US ---
EXAMINATION TYPE: US venous doppler duplex UE BI DATE OF EXAM: 08/10/2020 COMPARISON: NONE CLINICAL HISTORY: stroke. Has PFO.. Patent FO, no symptoms, no h/o dvt, Dr Chris Mann [protocol SIDE PERFORMED: Bilateral Right Arm: Negative for DVT Left Arm: Negative for DVTinternal echoes in non compressible cephalic vein in upper left arm, SVT IMPRESSION: 1. Left upper extremity negative for deep venous thrombosis. 2. Right upper extremity negative for deep venous thrombosis. 3. Some superficial thrombosis within the left cephalic vein
[2020-08-10 13:56] VITALS: BP 117/73; PULSE 68; RESP 16; TEMP 98.3
[2020-08-10] MEDS: ATORVASTATIN 80 MG TAB PO SCH (16:42)
--- NOTE | 2020-08-10 21:19 | P.DS ---
Providers Date of admission: 08/07/20 14:13 Expected date of discharge: 08/10/20 Attending physician: Sunny Montano Consults: 08/06/20 20:52 Consult Physician Routine Consulting Provider: Raghav Marie Consult Reason/Comments: ams Do you want consulting provider notified?: Yes 08/07/20 13:38 Consult Physician Routine Consulting Provider: Ysabel Jay Consult Reason/Comments: SHERRI Do you want consulting provider notified?: Yes 08/09/20 16:22 Consult Physician Urgent Consulting Provider: Munir Terry Consult Reason/Comments: possible subclavian steel-report in chart Do you want consulting provider notified?: Yes Primary care physician: [facility] Course: Chief Complaint: Increasing confusion History of presenting complaint: This is a 74-year-old patient follows with Dr. Dempsey. Chronic stable medical conditions include osteoarthritis, hypothyroid, glaucoma, macular degeneration with a prior history of stroke in 1997 and a TIA in 2011., Anxiety depression. History is obtained by the ER notes nurses and neurology. Patient presented to the ER with symptoms starting a day prior with altered mental status. Also per the patient for last couple of months has been forgetful and forgetting to pay the bills and misplacing things. Example not finding her glasses are for recently. Denies weakness. No focal neurological symptoms are reported. She does follow with Dr. Lex Segovia neurologist. During my history taking patient does appear to be somewhat distant and not able to come off with clear-cut answers. Denies any change in speech, headache, vision changes, focal weakness or trouble walking or swallowing. Admitted with:-Acute stroke, with evidence of shower emboli affecting the right temporal and occipital white matters. On the MRi. Today: SHERRI: Negative for any thrombus. Care was discussed with Dr. Mann from neurology. Also discussed with Dr. Watkins from cardiology. Given that patient has had multiple areas of suspected embolization and a prior history of anterior circulation embolization or frontal lobe, is a patient is a candidate for anticoagulation. It is felt that patient can follow up with a neurologist and didn't take a further decision about the same. In the meantime patient will be kept on aspirin and Plavix. . Patient also underwent the [facility] assessment t est today. That showed mild cognitive impairment. Higher functioning level testing showed some limitation of financial calculation limitations.. Outpatient carotid study didn't show suggestion of left subclavian's Steal syndrome. Patient follow outpatient with vascular. Today: Doppler ultrasound negative for DVT and filter lower extremity. Also negative for DVT in both upper extremity. Some superficial thrombosis within the left cephalic vein. Not for any further intervention as per vascular. Patient already on aspirin and Plavix. Cleared by cardiology and vascular and neurology for discharge. About patient assessment will be done with her PFO closure will be carried out by cardiology Discharge planning more than 35 minutes Consultation: Dr. Mcclain from neurology Dr. Terry from vascular Dr. Mckeon from cardiology Past medical history to include: Hyperlipidemia, osteoarthritis, hypothyroid, glaucoma, macular degeneration, stroke in 1997, TIA in 2011 detached retina repair, artery in the groin 99% blocked that was cleaned out, anxiety depression Social history: . Smoked for 28 years 1 pack a day stopped in 1993. No alcohol. Physical examination: VITAL SIGNS: 98.3, 68, 16, 1703, 94% room air GENERAL: Laying in bed, comfortable EYES: Pupils equal. Conjunctiva normal. NECK: JVD not raised; masses not palpable. HEART: First and second heart sounds are normal; no edema. LUNGS: Respiratory rate normal; clear to auscultation. ABDOMEN: Soft, nontender, liver spleen not palpable, no masses palpable. PSYCH: Patient is awake no slow to answer questionsl MUSCULAR skeletal: Evidence of OA. NEUROLOGICAL: Cranial nerves grossly intact; no facial asymmetry, power and sensation grossly intact. impairment of higher functions in terms of memory re call INVESTIGATIONS, reviewed in the clinical context: Outpatient arterial study suggestive of possible subclavian's steal syndrome on the left side [place] cognitive assessment: Showing mild cognitive-and linguistic deficit. Unknown standardize comprehensive evaluation speech language and cognition was also done: Patient had impaired abilities in the cognitive linguistic domains of short-term and delayed recall and moderate level mental manipulation. It was recommended for the spouse and the patient to complete financial agent and medication management test together to ensure accuracy. LDL 165 B12 507 folate 11 TSH 6.5 WBC 8.5 hemoglobin 14.1 platelets-and [place] platelet agglutination Urine drug screen: Negative Coronavirus [PCR]: Not detected EKG tracing personally reviewed by me-normal sinus rhythm with some ST segment depression in inferior leads Chest x-ray film personally reviewed by me-mild hyperinflation Computed tomography scan of the brain without contrast: Old right frontal lobe infarct. Cerebral atrophy. MRI of the brain: Audible small acute infarcts in the right temporal occipital white matter likely secondary to shower emboli. Moderate multifocal chronic i schemic white matter changes and report changes Assessment and plan: -Acute stroke, with evidence of shower emboli affecting the right temporal and occipital white matters. . Currently on aspirin and Plavix. Lipitor. 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 Based on comprehensive assessment and [place] cognitive assessment testing Financial and medication management to be done along with the spouse -Hypothyroid-under replaced Increase dose of Synthroid to 88 g -Hyperlipidemia Continue Lipitor -Depression and anxiety not otherwise specified Continue Celexa and Abilify -DVT prophylaxis On Lovenox -Obesity BMI 31.3 Weight loss measures and follow with PCP Disposition: Home Plan - Discharge Summary New Discharge Prescriptions: New Aspirin 81 mg PO DAILY #30 chew Clopidogrel [Plavix] 75 mg PO DAILY #30 tab Levothyroxine Sodium [Synthroid] 88 mcg PO DAILY@0630 #30 tab Continue Citalopram Hydrobromide [CeleXA] 40 mg PO DAILY Atorvastatin [Lipitor] 80 mg PO HS ALPRAZolam [Xanax] 0.5 mg PO BID PRN PRN Reason: Anxiety ARIPiprazole [Abilify] 2 mg PO DAILY Discontinued Levothyroxine Sodium [Synthroid] 75 mcg PO DAILY Discharge Medication List Citalopram Hydrobromide [CeleXA] 40 mg PO DAILY 08/24/15 [History] Atorvastatin [Lipitor] 80 mg PO HS 06/11/18 [History] ALPRAZolam [Xanax] 0.5 mg PO BID PRN 02/29/20 [History] ARIPiprazole [Abilify] 2 mg PO DAILY 05/06/20 [History] Aspirin 81 mg PO DAILY #30 chew 08/09/20 [Rx] Clopidogrel [Plavix] 75 mg PO DAILY #30 tab 08/09/20 [Rx] Levothyroxine Sodium [Synthroid] 88 mcg PO DAILY@0630 #30 tab 08/09/20 [Rx] Follow up Appointment(s)/Referral(s): Rusty Dempsey DO [Primary Care Provider] - 08/11/20 9:40 am (Sunday) Sydnie Wells MD [REFERRING] - 08/16/20 11:00 am Ysabel Jay MD [STAFF PHYSICIAN] - 08/23/20 11:30 am (Sunday earliest available appointment) Kwame Tineo MD [STAFF PHYSICIAN] - 08/18/20 11:30 am Patient Instructions/Handouts: Ischemic Stroke (DC) Discharge Disposition: HOME SELF-CARE
== END 2020-08-10 17:00 | disposition home or self-care (01) | DRG 65 ==
LOC: EC 17:32 → 6NMEDSUR 20:52 → OBSVTOIN 08-07 14:13 → 3SCARD 08-07 19:12
PROVIDERS: ADMIT Hospitalist; ATTEND Hospitalist
PROC: B24BZZ4 Ultrasonography of Heart with Aorta, Transesophageal (ICD-10-PCS; principal; 2020-08-09 10:30)
DX: I63.49 Cerebral infarction due to embolism of other cerebral artery (principal); Q21.1 Atrial septal defect; I82.612 Acute embolism and thrombosis of superficial veins of left upper extremity; F01.50 Vascular dementia, unspecified severity, without behavioral disturbance, psychotic disturbance, mood disturbance, and anxiety; G93.89 Other specified disorders of brain; I73.9 Peripheral vascular disease, unspecified; Z20.822 Contact with and (suspected) exposure to COVID-19; E03.9 Hypothyroidism, unspecified; E78.5 Hyperlipidemia, unspecified; I69.311 Memory deficit following cerebral infarction; I08.1 Rheumatic disorders of both mitral and tricuspid valves; I10 Essential (primary) hypertension; F32.9 Major depressive disorder, single episode, unspecified; F41.9 Anxiety disorder, unspecified; H40.9 Unspecified glaucoma; H35.30 Unspecified macular degeneration; M19.90 Unspecified osteoarthritis, unspecified site; E66.9 Obesity, unspecified; Z68.31 Body mass index [BMI] 31.0-31.9, adult; Z79.890 Hormone replacement therapy; Z79.899 Other long term (current) drug therapy; Z86.010 Personal history of colon polyps; Z96.643 Presence of artificial hip joint, bilateral; Z87.891 Personal history of nicotine dependence; Z90.721 Acquired absence of ovaries, unilateral; Z86.69 Personal history of other diseases of the nervous system and sense organs; Z87.42 Personal history of other diseases of the female genital tract; Z98.42 Cataract extraction status, left eye; Z98.41 Cataract extraction status, right eye; Z87.19 Personal history of other diseases of the digestive system; Z87.2 Personal history of diseases of the skin and subcutaneous tissue; Z98.890 Other specified postprocedural states; Z80.0 Family history of malignant neoplasm of digestive organs; Z82.49 Family history of ischemic heart disease and other diseases of the circulatory system; Z80.49 Family history of malignant neoplasm of other genital organs; Z80.8 Family history of malignant neoplasm of other organs or systems
CPT/HCPCS: 36415; 70450; 70496; 70498; 70553; 71046; 80053; 80061; 80306; 81001; 82607; 82746; 84439; 84443; 84484; 85025; 85610; 85730; 87635; 93005; 93270; 93306; 93312; 93320; 93325; 93970; 95819; 99285

== ENCOUNTER 2020-08-17 16:04 | Emergency (ER) | payer MEDICARE, OTHER ==
[2020-08-17 16:23] VITALS: RESP 18
[2020-08-17] MEDS ORDERED: SODIUM CHLORIDE 0.9% 1,000 ML IV STA (16:34)
--- NOTE | 2020-08-17 16:35 | ED ---
Weakness HPI - General Stated complaint: "Not feeling well" Time Seen by Provider: 08/17/20 16:22 Source: patient, EMS, RN notes reviewed Mode of arrival: EMS Limitations: physical limitation - History of Present Illness Initial comments: Patient is a 74-year-old female that presents to emergency room complaining of not feeling well. She notes that she did have a stroke approximately a week ago. She was unable to describe exactly what she was feeling just feeling under the weather. She does not appear to be any pain or distress while sitting up in bed during the exam interview. She denied any new injuries or traumas. Any facial drooping or weakness in her lower extremities or unilateral weakness. She denied any chest pain shortness of breath headache nausea vomiting diarrhea constipation fever fatigue chills. - Related Data Home Medications Medication Instructions Recorded Confirmed Cholecalciferol (Vitamin D3) 125 mcg PO DAILY 08/17/20 08/17/20 [Vitamin D3 (5000 Iu)] Previous Rx's Medication Instructions Recorded Aspirin 81 mg PO DAILY #30 chew 08/09/20 Clopidogrel [Plavix] 75 mg PO DAILY #30 tab 08/09/20 Levothyroxine Sodium [Synthroid] 88 mcg PO DAILY@0630 #30 tab 08/09/20 Atorvastatin [Lipitor] 80 mg PO HS #30 tab 08/10/20 Citalopram Hydrobromide [CeleXA] 40 mg PO DAILY #60 tab 08/10/20 Allergies Allergy/AdvReac Type Severity Reaction Status Date / Time No Known Allergies Allergy Verified 08/17/20 17:12 Review of Systems ROS Statement: Those systems with pertinent positive or pertinent negative responses have been documented in the HPI. ROS Other: All systems not noted in ROS Statement are negative. Past Medical History Past Medical History: CVA/TIA, Hyperlipidemia, Osteoarthritis (OA), Skin Disorder, Thyroid Disorder Additional Past Medical History / Comment(s): states was being treated for rash, legs, arms, back but is not currently, HX OF COLON POLYP, glaucoma, macular degeneration, CVA 1997 and TIA 2011 History of Any Multi-Drug Resistant Organisms: None Reported Past Surgical History: Joint Replacement, Orthopedic Surgery Additional Past Surgical History / Comment(s): cyst removed left ovary, detached retina repair, artery in groin 99% blocked "cleaned out", sinus surgery 2001, bilat hip replacement 2005 and 2013, cataract surgery sarina, hx of sciatic nerve block Past Anesthesia/Blood Transfusion Reactions: No Reported Reaction Past Psychological History: Anxiety, Depression Smoking Status: Former smoker Past Alcohol Use History: None Reported Past Drug Use History: None Reported - Past Family History Brother(s) Family Medical History: Cancer Additional Family Medical History / Comment(s): pancreatic Sister(s) Family Medical History: Cancer, Myocardial Infarction (ID) Additional Family Medical History / Comment(s): skin cancer and cervical cancer Father Family Medical History: Coronary Artery Disease (CAD) General Exam Limitations: physical limitation General appearance: alert, in no apparent distress Head exam: Present: atraumatic, normocephalic, normal inspection Eye exam: Present: normal appearance, PERRL, EOMI. Absent: scleral icterus, conjunctival injection, periorbital swelling Neck exam: Present: normal inspection Respiratory exam: Present: normal lung sounds bilaterally. Absent: respiratory distress, wheezes, rales, rhonchi, stridor Cardiovascular Exam: Present: regular rate, normal rhythm, normal heart sounds. Absent: systolic murmur, diastolic murmur, rubs, gallop, clicks GI/Abdominal exam: Present: soft, normal bowel sounds. Absent: distended, tenderness, guarding, rebound, rigid Extremities exam: Present: normal inspection, full ROM, normal capillary refill. Absent: tenderness, pedal edema, joint swelling, calf tenderness Neurological exam: Present: alert, oriented X3, CN II-XII intact Expanded Cranial nerves: EOM's Intact: Normal, Tongue Deviation: Normal, Nystagmus: Normal, Facial Sensation: Normal Motor strength exam: RUE: 5, LUE: 5, RLE: 5, LLE: 5 Eye Response: (4) open spontaneously Motor Response: (6) obeys commands Verbal Response: (5) oriented Psychiatric exam: Present: normal affect, normal mood Skin exam: Present: warm, dry, intact, normal color. Absent: rash Course Vital Signs 08/17/20 16:18 Temperature 98.3 F Pulse Rate 59 L Respiratory 18 Rate Blood Pressure 139/78 O2 Sat by Pulse 99 Oximetry EKG Findings - EKG Comments: EKG Findings:: Ventricular rate 57 bpm, CA interval 158 ms, QRS duration 96 ms, QTC 424 ms, PRT axes 45/22/31. Sinus bradycardia, nonspecific ST abnormality, abnormal ECG. Medical Decision Making - Medical Decision Making 74-year-old female complaining of not feeling well for the past all days. Labs, chest x-ray, EKG, monitoring specialist, 1 L normal saline ordered. EKG appears similar to prior studies. Labs unremarkable. Patient appears baseline per previous notes. Case discussed with Dr. Salas, patient discharge home. - Lab Data Result diagrams: 08/17/20 16:40 08/17/20 16:40 Lab Results 08/17/20 08/17/20 08/17/20 Range/Units 16:40 16:40 16:40 WBC 7.0 (3.8-10.6) k/uL RBC 4.59 (3.80-5.40) m/uL Hgb 13.8 (11.4-16.0) gm/dL Hct 40.4 (34.0-46.0) % MCV 88.2 (80.0-100.0) fL MCH 30.2 (25.0-35.0) pg MCHC 34.2 (31.0-37.0) g/dL RDW 12.9 (11.5-15.5) % Plt Count 223 (150-450) k/uL MPV 7.2 Neutrophils % 57 % Lymphocytes % 28 % Monocytes % 7 % Eosinophils % 5 % Basophils % 1 % Neutrophils # 4.0 (1.3-7.7) k/uL Lymphocytes # 1.9 (1.0-4.8) k/uL Monocytes # 0.5 (0-1.0) k/uL Eosinophils # 0.4 (0-0.7) k/uL Basophils # 0.1 (0-0.2) k/uL PT 9.8 (9.0-12.0) sec INR 0.9 (<1.2) APTT 22.0 (22.0-30.0) sec Sodium (137-145) mmol/L Potassium (3.5-5.1) mmol/L Chloride (98-107) mmol/L Carbon Dioxide (22-30) mmol/L Anion Gap mmol/L BUN (7-17) mg/dL Creatinine (0.52-1.04) mg/dL Est GFR (CKD-EPI)AfAm (>60 ml/min/1.73 sqM) Est GFR (CKD-EPI)NonAf (>60 ml/min/1.73 sqM) Glucose (74-99) mg/dL Plasma Lactic Acid Pranav (0.7-2.0) mmol/L Calcium (8.4-10.2) mg/dL Phosphorus (2.5-4.5) mg/dL Magnesium (1.6-2.3) mg/dL Total Bilirubin (0.2-1.3) mg/dL AST (14-36) U/L ALT (4-34) U/L Alkaline Phosphatase (38-126) U/L Troponin I (0.000-0.034) ng/mL Total Protein (6.3-8.2) g/dL Albumin (3.5-5.0) g/dL Urine Color Light Yellow Urine Appearance Clear (Clear) Urine pH 6.0 (5.0-8.0) Ur Specific [place] 1.012 (1.001-1.035) Urine Protein Negative (Negative) Urine Glucose (UA) Negative (Negative) Urine Ketones Negative (Negative) Urine Blood Negative (Negative) Urine Nitrite Negative (Negative) Urine Bilirubin Negative (Negative) Urine Urobilinogen <2.0 (<2.0) mg/dL Ur Leukocyte Esterase Negative (Negative) 08/17/20 08/17/20 08/17/20 Range/Units 16:40 16:40 16:40 WBC (3.8-10.6) k/uL RBC (3.80-5.40) m/uL Hgb (11.4-16.0) gm/dL Hct (34.0-46.0) % MCV (80.0-100.0) fL MCH (25.0-35.0) pg MCHC (31.0-37.0) g/dL RDW (11.5-15.5) % Plt Count (150-450) k/uL MPV Neutrophils % % Lymphocytes % % Monocytes % % Eosinophils % % Basophils % % Neutrophils # (1.3-7.7) k/uL Lymphocytes # (1.0-4.8) k/uL Monocytes # (0-1.0) k/uL Eosinophils # (0-0.7) k/uL Basophils # (0-0.2) k/uL PT (9.0-12.0) sec INR (<1.2) APTT (22.0-30.0) sec Sodium 137 (137-145) mmol/L Potassium 4.4 (3.5-5.1) mmol/L Chloride 105 (98-107) mmol/L Carbon Dioxide 28 (22-30) mmol/L Anion Gap 4 mmol/L BUN 13 (7-17) mg/dL Creatinine 0.89 (0.52-1.04) mg/dL Est GFR (CKD-EPI)AfAm 75 (>60 ml/min/1.73 sqM) Est GFR (CKD-EPI)NonAf 65 (>60 ml/min/1.73 sqM) Glucose 93 (74-99) mg/dL Plasma Lactic Acid Pranav 0.8 (0.7-2.0) mmol/L Calcium 9.3 (8.4-10.2) mg/dL Phosphorus 3.7 (2.5-4.5) mg/dL Magnesium 2.0 (1.6-2.3) mg/dL Total Bilirubin 0.8 (0.2-1.3) mg/dL AST 25 (14-36) U/L ALT 13 (4-34) U/L Alkaline Phosphatase 96 (38-126) U/L Troponin I <0.012 (0.000-0.034) ng/mL Total Protein 6.8 (6.3-8.2) g/dL Albumin 3.8 (3.5-5.0) g/dL Urine Color Urine Appearance (Clear) Urine pH (5.0-8.0) Ur Specific [place] (1.001-1.035) Urine Protein (Negative) Urine Glucose (UA) (Negative) Urine Ketones (Negative) Urine Blood (Negative) Urine Nitrite (Negative) Urine Bilirubin (Negative) Urine Urobilinogen (<2.0) mg/dL Ur Leukocyte Esterase (Negative) - EKG Data -: EKG Interpreted by Ut EKG shows normal: sinus rhythm Rate: bradycardia EKG Comments: Ventricular rate 57 bpm, CA interval 158 ms, QRS duration 96 ms, QTC 424 ms, PRT axes 45/22/31. Sinus bradycardia, nonspecific ST abnormality, abnormal ECG. - Radiology Data Radiology results: report reviewed, image reviewed Chest x-ray: No acute cardiopulmonary process. No significant change from prior. Disposition Clinical Impression: Weakness Disposition: HOME SELF-CARE Condition: Stable Instructions (If sedation given, give patient instructions): Weakness (ED), Dehydration (ED) Additional Instructions: Please return to the Emergency Department if symptoms worsen or any other concerns. Continue to follow-up with primary care and neurology. Increase oral fluids. Is patient prescribed a controlled substance at d/c from ED?: No Referrals: Rusty Dempsey DO [Primary Care Provider] - 1-2 days Time of Disposition: 18:16
[2020-08-17 16:51] LABS: Basophils # (A) 0.1 k/uL (0-0.2); Basophils % (A) 1 %; Eosinophils # (A) 0.4 k/uL (0-0.7); Eosinophils % (A) 5 %; HCT 40.4 % (34.0-46.0); HGB 13.8 gm/dL (11.4-16.0); Lymphocytes # (A) 1.9 k/uL (1.0-4.8); Lymphocytes % (A) 28 %; MCH 30.2 pg (25.0-35.0); MCHC 34.2 g/dL (31.0-37.0); MCV 88.2 fL (80.0-100.0); Mean Platelet Volume 7.2; Monocytes # (A) 0.5 k/uL (0-1.0); Monocytes % (A) 7 %; Neutrophils % (A) 57 %; Platelet Count 223 k/uL (150-450); RBC 4.59 m/uL (3.80-5.40); RDW 12.9 % (11.5-15.5)
[2020-08-17 16:52] LABS: Appearance,Urine Clear (Clear); Bilirubin,Urine Negative (Negative); Blood,Urine Negative (Negative); Color,Urine Light Yellow; Glucose,Urine (UA) Negative (Negative); Ketones,Urine Negative (Negative); Leukocyte Esterase,Urine Negative (Negative); Nitrite,Urine Negative (Negative); Protein,Urine Negative (Negative); Specific Gravity,Urine 1.012 (1.001-1.035); Urobilinogen,Urine <2.0 mg/dL (<2.0)
--- NOTE | 2020-08-17 17:08 | XR ---
EXAMINATION TYPE: XR chest 2V DATE OF EXAM: 08/17/2020 COMPARISON: Chest x-ray August 06, 2020 HISTORY: Weakness. TECHNIQUE: Frontal and lateral views of the chest are obtained. FINDINGS: There is chronic parenchymal change without suspicious new focal air space opacity, pleura l effusion, or pneumothorax seen. The cardiac silhouette size remains upper limits of normal. The osseous structures are intact. IMPRESSION: No acute cardiopulmonary process. No significant change from prior.
[2020-08-17 17:09] LABS: Albumin 3.8 g/dL (3.5-5.0); Calcium 9.3 mg/dL (8.4-10.2); INR 0.9 (<1.2); Phosphorus 3.7 mg/dL (2.5-4.5); Potassium 4.4 mmol/L (3.5-5.1); Prothrombin Time 9.8 sec (9.0-12.0); Total Bilirubin 0.8 mg/dL (0.2-1.3); Total Protein 6.8 g/dL (6.3-8.2)
[2020-08-17 18:21] VITALS: BP 144/70; PULSE 61; TEMP 98.1
== END 2020-08-17 17:10 | disposition home or self-care (01) ==
LOC: EC 16:04
DX: R53.1 Weakness (principal); Z87.891 Personal history of nicotine dependence
CPT/HCPCS: 36415; 71046; 80053; 81003; 83605; 83735; 84100; 84484; 85025; 85610; 85730; 93005; 96360; 99285

== ENCOUNTER 2020-10-25 14:24 | Emergency (ER) | payer MEDICARE, OTHER ==
[2020-10-25 15:13] VITALS: TEMP 98.3
--- NOTE | 2020-10-25 18:00 | ED ---
General Adult HPI - General Chief complaint: Psychiatric Symptoms Stated complaint: mental issues due to stroke Source: patient, family, RN notes reviewed, old records reviewed Mode of arrival: wheelchair Limitations: no limitations - History of Present Illness Initial comments: 75-year-old white female, alert and oriented 4, presents to the emergency room with her complaining of suicidal ideations. Patient states that she just doesn't want to live anymore. She denies any plan. Her states that she has been increasingly depressed since the last stroke which was 3 weeks ago. The stroke caused her to have much more difficulty with speaking. She has been on medications in the past for depression but she states that she hasn't been on them in a long time. She is patient of Dr. Dempsey. She denies any pain or shortness of breath. She does state she thinks she might have a urinary tract infection. She is also being treated for a rash on her arms and legs. Her states that she has been picking at these lesions. Her denies any nausea vomiting or fevers. -: week(s) (Husband3) Severity scale (1-10): 0 - Related Data Home Medications Medication Instructions Recorded Confirmed Cholecalciferol (Vitamin D3) 125 mcg PO DAILY 08/17/20 10/25/20 [Vitamin D3 (5000 Iu)] ALPRAZolam [Xanax] 0.5 mg PO BID PRN 10/25/20 10/25/20 ARIPiprazole [Abilify] 2 mg PO DAILY 10/25/20 10/25/20 Previous Rx's Medication Instructions Recorded Aspirin 81 mg PO DAILY #30 chew 08/09/20 Clopidogrel [Plavix] 75 mg PO DAILY #30 tab 08/09/20 Levothyroxine Sodium [Synthroid] 88 mcg PO DAILY@0630 #30 tab 08/09/20 Atorvastatin [Lipitor] 80 mg PO HS #30 tab 08/10/20 Citalopram Hydrobromide [CeleXA] 40 mg PO DAILY #60 tab 08/10/20 Allergies Allergy/AdvReac Type Severity Reaction Status Date / Time No Known Allergies Allergy Verified 10/25/20 19:03 Review of Systems ROS Statement: Those systems with pertinent positive or pertinent negative responses have been documented in the HPI. ROS Other: All systems not noted in ROS Statement are negative. Past Medical History Past Medical History: CVA/TIA, Hyperlipidemia, Osteoarthritis (OA), Skin Disorder, Thyroid Disorder Additional Past Medical History / Comment(s): states was being treated for rash, legs, arms, back but is not currently, HX OF COLON POLYP, glaucoma, macular degeneration, CVA 1997 and TIA 2011 History of Any Multi-Drug Resistant Organisms: None Reported Past Surgical History: Joint Replacement, Orthopedic Surgery Additional Past Surgical History / Comment(s): cyst removed left ovary, detached retina repair, artery in groin 99% blocked "cleaned out", sinus surgery 2001, bilat hip replacement 2005 and 2013, cataract surgery sarina, hx of sciatic nerve block Past Anesthesia/Blood Transfusion Reactions: No Reported Reaction Past Psychological History: Anxiety, Depression Smoking Status: Former smoker Past Alcohol Use History: None Reported Past Drug Use History: None Reported - Past Family History Brother(s) Family Medical History: Cancer Additional Family Medical History / Comment(s): pancreatic Sister(s) Family Medical History: Cancer, Myocardial Infarction (SC) Additional Family Medical History / Comment(s): skin cancer and cervical cancer Father Family Medical History: Coronary Artery Disease (CAD) General Exam Limitations: no limitations General appearance: alert, in no apparent distress Head exam: Present: atraumatic, normocephalic, normal inspection Eye exam: Present: normal appearance, EOMI. Absent: scleral icterus, conjunctival injection, periorbital swelling, periorbital tenderness ENT exam: Present: normal exam, normal oropharynx, mucous membranes moist Neck exam: Present: normal inspection, full ROM. Absent: tenderness, meningismus, lymphadenopathy, thyromegaly Respiratory exam: Present: normal lung sounds bilaterally. Absent: respiratory distress, wheezes, rales, rhonchi, stridor, chest wall tenderness, accessory muscle use, decreased breath sounds, prolonged expiratory Cardiovascular Exam: Present: tachycardia. Absent: JVD GI/Abdominal exam: Present: soft, normal bowel sounds. Absent: distended, tenderness, guarding, rebound, rigid Extremities exam: Present: normal capillary refill. Absent: tenderness, pedal edema, calf tenderness Back exam: Absent: tenderness, CVA tenderness (R), CVA tenderness (L), muscle spasm, paraspinal tenderness, vertebral tenderness, other (Multiple lesions across her upper back ) Neurological exam: Present: alert, oriented X3, other (Slurred speech from previous strokes) Psychiatric exam: Present: depressed, suicidal ideation (plan) Skin exam: Present: warm, dry, intact, normal color, other (Multiple lesions across her upper back or arms and bilateral lower extremity that she has been picking per her , no erythema or cellulitis). Absent: rash, cyanosis, diaphoretic, erythema, petechiae, pallor, mottled Course Vital Signs 10/25/20 10/25/20 15:09 21:26 Temperature 98.3 F Pulse Rate 131 H 62 Respiratory 18 16 Rate Blood Pressure 136/64 129/83 O2 Sat by Pulse 98 99 Oximetry EKG Findings - EKG Results: EKG: sinus rhythm (Ventricular rate 63, NV interval 0.162, QRS of 0.96, QTC of 0.403) Medical Decision Making - Medical Decision Making Patient has history of depression after her previous strokes. She states that she has no suicidal plan. She lives with her who cares for her. She's been medically cleared, there is no signs of urinary tract infection. EKG shows sinus rhythm with a ventricular rate of 63. Kathy with EPS did see patient and recommends outpatient therapy. She gave information to the for community mental health. They're directed to return to the emergency room with any worsening symptoms. Dr. Liao agreeable to this plan of care. - Lab Data Result diagrams: 10/25/20 18:08 10/25/20 18:08 Lab Results 10/25/20 10/25/20 10/25/20 Range/Units 18:08 18:08 18:08 WBC 7.3 (3.8-10.6) k/uL RBC 4.70 (3.80-5.40) m/uL Hgb 14.0 (11.4-16.0) gm/dL Hct 42.5 (34.0-46.0) % MCV 90.4 (80.0-100.0) fL MCH 29.8 (25.0-35.0) pg MCHC 33.0 (31.0-37.0) g/dL RDW 14.2 (11.5-15.5) % Plt Count 204 (150-450) k/uL MPV 8.0 Neutrophils % 56 % Lymphocytes % 27 % Monocytes % 8 % Eosinophils % 4 % Basophils % 1 % Neutrophils # 4.1 (1.3-7.7) k/uL Lymphocytes # 2.0 (1.0-4.8) k/uL Monocytes # 0.6 (0-1.0) k/uL Eosinophils # 0.3 (0-0.7) k/uL Basophils # 0.1 (0-0.2) k/uL Sodium 136 L (137-145) mmol/L Potassium 4.2 (3.5-5.1) mmol/L Chloride 102 (98-107) mmol/L Carbon Dioxide 28 (22-30) mmol/L Anion Gap 6 mmol/L BUN 15 (7-17) mg/dL Creatinine 0.87 (0.52-1.04) mg/dL Est GFR (CKD-EPI)AfAm 77 (>60 ml/min/1.73 sqM) Est GFR (CKD-EPI)NonAf 66 (>60 ml/min/1.73 sqM) Glucose 98 (74-99) mg/dL Calcium 9.6 (8.4-10.2) mg/dL Urine Color Yellow Urine Appearance Clear (Clear) Urine pH 6.0 (5.0-8.0) Ur Specific [place] 1.019 (1.001-1.035) Urine Protein Negative (Negative) Urine Glucose (UA) Negative (Negative) Urine Ketones Negative (Negative) Urine Blood Negative (Negative) Urine Nitrite Negative (Negative) Urine Bilirubin Negative (Negative) Urine Urobilinogen <2.0 (<2.0) mg/dL Ur Leukocyte Esterase Small H (Negative) Urine RBC 3 (0-5) /hpf Urine WBC 3 (0-5) /hpf Ur Squamous Epith Cells 1 (0-4) /hpf Urine Bacteria Rare H (None) /hpf Urine Mucus Rare H (None) /hpf Urine Opiates Screen Not Detected (NotDetected) Ur Oxycodone Screen Not Detected (NotDetected) Urine Methadone Screen Not Detected (NotDetected) Ur Propoxyphene Screen Not Detected (NotDetected) Ur Barbiturates Screen Not Detected (NotDetected) U Tricyclic Antidepress Not Detected (NotDetected) Ur Phencyclidine Scrn Not Detected (NotDetected) Ur Amphetamines Screen Not Detected (NotDetected) U Methamphetamines Scrn Not Detected (NotDetected) U Benzodiazepines Scrn Not Detected (NotDetected) Urine Cocaine Screen Not Detected (NotDetected) U Marijuana (THC) Screen Not Detected (NotDetected) - EKG Data EKG shows normal: sinus rhythm Disposition Clinical Impression: Depression, Suicidal ideation Disposition: HOME SELF-CARE Condition: Fair Additional Instructions: Follow-up with the primary care doctor this week and community mental health as referred. Return to the emergency room with any new or worsening symptoms. Is patient prescribed a controlled substance at d/c from ED?: No Referrals: Rusty Dempsey DO [Primary Care Provider] - 1-2 days Time of Disposition: 20:43
[2020-10-25 18:15] LABS: Basophils # (A) 0.1 k/uL (0-0.2); Basophils % (A) 1 %; Eosinophils # (A) 0.3 k/uL (0-0.7); Eosinophils % (A) 4 %; HCT 42.5 % (34.0-46.0); Lymphocytes % (A) 27 %; MCH 29.8 pg (25.0-35.0); MCV 90.4 fL (80.0-100.0); Monocytes # (A) 0.6 k/uL (0-1.0); Monocytes % (A) 8 %; Neutrophils # (A) 4.1 k/uL (1.3-7.7); Neutrophils % (A) 56 %; Platelet Count 204 k/uL (150-450); RDW 14.2 % (11.5-15.5); WBC 7.3 k/uL (3.8-10.6)
[2020-10-25 18:29] LABS: Calcium 9.6 mg/dL (8.4-10.2); Potassium 4.2 mmol/L (3.5-5.1)
[2020-10-25 18:59] LABS: Appearance,Urine Clear (Clear); Bacteria,Urine Rare /hpf; Bilirubin,Urine Negative (Negative); Blood,Urine Negative (Negative); Color,Urine Yellow; Glucose,Urine (UA) Negative (Negative); Ketones,Urine Negative (Negative); Leukocyte Esterase,Urine Small (Negative); Mucus,Urine Rare /hpf; Nitrite,Urine Negative (Negative); Protein,Urine Negative (Negative); RBC,Urine 3 /hpf (0-5); Specific Gravity,Urine 1.019 (1.001-1.035); Squamous Epithelial Cell,Urine 1 /hpf (0-4); Urobilinogen,Urine <2.0 mg/dL (<2.0); WBC,Urine 3 /hpf (0-5)
[2020-10-25] MEDS ORDERED: diphenhydrAMINE 25 MG CAP PO STA (19:04)
[2020-10-25 19:08] LABS: Amphetamine Screen,Urine Not Detected (NotDetected); Barbiturate Screen,Urine Not Detected (NotDetected); Benzodiazepines Screen,Urine Not Detected (NotDetected); Cocaine Screen,Urine Not Detected (NotDetected); Methadone Screen, Urine Not Detected (NotDetected); Opiate Screen,Urine Not Detected (NotDetected); Oxycodone Screen, Urine Not Detected (NotDetected); Phencyclidine Screen,Urine Not Detected (NotDetected); Tricyclic Antidepressant,Urine Not Detected (NotDetected); Urn Cannabinoid Scrn Not Detected (NotDetected)
[2020-10-25 21:27] VITALS: BP 129/83; PULSE 62; RESP 16
== END 2020-10-25 21:40 | disposition home or self-care (01) ==
LOC: EC 14:24
DX: R45.851 Suicidal ideations (principal); F32.9 Major depressive disorder, single episode, unspecified; R00.0 Tachycardia, unspecified; M19.90 Unspecified osteoarthritis, unspecified site; Z87.891 Personal history of nicotine dependence; Z86.73 Personal history of transient ischemic attack (TIA), and cerebral infarction without residual deficits; Z79.899 Other long term (current) drug therapy
CPT/HCPCS: 36415; 80048; 80306; 81001; 82075; 85025; 93005; 99285